=== PATIENT | female | born 1965 | race Caucasian/White ===

== ENCOUNTER 2017-03-12 21:02 | Emergency (ER) | payer OTHER, MEDICAID ==
[2017-03-12 21:20] VITALS: RESP 16
[2017-03-12] MEDS ORDERED: NS 1,000 ML IV ONE (22:23)
--- NOTE | 2017-03-12 22:34 | EDPHY ---
H & P Stated Complaint: constipation x 7days per pt. with nausea/cramps/pain. L knee wound as well. Time Seen by Provider: 03/12/17 22:14 HPI/ROS: CHIEF COMPLAINT: Constipation HISTORY OF PRESENT ILLNESS: This is a 52-year-old female with a past medical history of scleroderma, GERD, osteomyelitis, rheumatoid arthritis, emphysema, who presents reporting that she has not had a bowel movement for 1 week. She reports ongoing and increasing abdominal pain some nausea, cramping, and vomited yesterday. Reports red vomitus but does not think it is blood. Denies a fever, diarrhea, or urinary complaints. Has use prune juice as well as a suppository to treat her symptoms. Has not had a colonoscopy. No history of diverticulitis or diverticulosis that she knows of. Does have a family history of colon cancer. No fever, chills, chest pain, shortness of breath, palpitations, vomiting, diarrhea, urinary complaints, headache, lightheadedness. REVIEW OF SYSTEMS: Aside from elements discussed in the HPI, a comprehensive 10-point review of systems was reviewed and is negative. PAST MEDICAL HISTORY: Scleroderma, asthma, multiple finger amputations secondary to frostbite, history of rheumatoid arthritis. Chronically draining wound on her right knee SOCIAL HISTORY: Smoker. VITAL SIGNS Reviewed by me. GENERAL: Thin, poorly kept female. Multiple amputations of the digits. Complaining of abdominal pain. HEENT: Atraumatic. Eyes: No icterus, no injection. Mouth: Edentulous. Moist mucous membranes. No erythema or lesions. Neck: supple with no adenopathy. LUNGS: Clear to auscultation bilaterally, no wheezes, rhonchi or rales. CARDIAC: Regular rate and rhythm, no rubs, murmurs or gallops. ABDOMEN: Soft, multiple masses (questionable stool) palpable throughout the abdomen. No distension. No guarding or rebound. BACK: No CVA tenderness. EXTREMITIES: multiple finger tip amputations. Digits of the left hand are erythematous and swollen. Right knee has a open, chronically draining wound over the patella. No edema. NEURO: Alert and oriented, grossly nonfocal. SKIN: Warm and dry, no rash. PSYCHIATRIC: Normal mentation, no agitation. - Personal History LMP (Females 10-55): Irregular Current Tetanus Diphtheria and Acellular Pertussis (TDAP): Unsure Tetanus Vaccine Date: < 10 years - Medical/Surgical History Hx Asthma: Yes Hx Chronic Respiratory Disease: Yes Hx Diabetes: No Hx Cardiac Disease: No Hx Renal Disease: No Hx Cirrhosis: No Hx Alcoholism: Yes Hx HIV/AIDS: No Hx Splenectomy or Spleen Trauma: No Other PMH: ASTHMA,SCLERODERMA,GERD,CA THROAT,NELI,T&A, emphysema, rheumatoid arth. HX RT ELBOW OSTEOMYELITIS W/SURG, SURG RT THUMB. HEPATITIS C, frostbite, numerous finger amputations - Social History Smoking Status: Current every day smoker Constitutional: Initial Vital Signs Temperature (C) 37.0 C 03/12/17 21:18 Heart Rate 106 H 03/12/17 21:18 Respiratory Rate 16 03/12/17 21:18 Blood Pressure 142/127 H 03/12/17 21:18 O2 Sat (%) 99 03/12/17 21:18 O2 Delivery Mode Room Air Allergies/Adverse Reactions: No Known Allergies Allergy (Verified 03/12/17 21:16) Home Medications: Medication Instructions Recorded Albuterol 01/02/16 Prilosec 01/02/16 Ibuprofen 03/12/17 Naproxen Sodium [Aleve] 03/12/17 traZODone [traZODONE 100MG (*)] 03/12/17 Medical Decision Making - Diagnostics Imaging Results: Imaging Impressions Abdomen X-Ray 03/12/17 22:23 Impression: 1. Severe constipation. Xray: Two-view abdomen was obtained. I viewed the images myself on the PACS system. My interpretation of the images is: No air-fluid levels. Significant amount of constipation is present. The radiology interpretation is: Pending. I discussed the results with the patient. Imaging: I viewed and interpreted images myself ED Course/Re-evaluation: 52-year-old female presenting to the emergency department reporting constipation and generalized abdominal pain. IV was placed and patient received normal saline. Electrolytes are normal, specifically a normal potassium. X-ray demonstrates significant amount of stool throughout. At the patient's request, she received a fleets enema while in the emergency department. She was discharged with instructions regarding the use of GoLYTELY. I also recommend that she begin taking MiraLax daily. She will follow up with her primary care physician. Differential Diagnosis: After obtaining the patient's history and performing an examination, differential diagnosis considered included but was not limited to appendicitis, cholecystitis, constipation, bowel obstruction, kidney stones, urinary tract infections and other causes. - Data Points Laboratory Results: Laboratory Results 03/12/17 23:05 03/12/17 23:05 03/12/17 03/12/17 23:05 23:05 WBC 7.46 10^3/uL 10^3/uL (3.80-9.50) RBC 4.83 10^6/uL 10^6/uL (4.18-5.33) Hgb 11.4 g/dL L g/dL (12.6-16.3) Hct 35.5 % L % (38.0-47.0) MCV 73.5 fL L fL (81.5-99.8) MCH 23.6 pg L pg (27.9-34.1) MCHC 32.1 g/dL L g/dL (32.4-36.7) RDW 22.5 % H % (11.5-15.2) Plt Count 454 10^3/uL H 10^3/uL (150-400) MPV 8.4 fL L fL (8.7-11.7) Neut % (Auto) 67.8 % % (39.3-74.2) Lymph % (Auto) 22.5 % % (15.0-45.0) [place] % (Auto) 7.2 % % (4.5-13.0) Eos % (Auto) 1.6 % % (0.6-7.6) Baso % (Auto) 0.5 % % (0.3-1.7) Nucleat RBC Rel Count 0.0 % % (0.0-0.2) Absolute Neuts (auto) 5.05 10^3/uL 10^3/uL (1.70-6.50) Absolute Lymphs (auto) 1.68 10^3/uL 10^3/uL (1.00-3.00) Absolute Monos (auto) 0.54 10^3/uL 10^3/uL (0.30-0.80) Absolute Eos (auto) 0.12 10^3/uL 10^3/uL (0.03-0.40) Absolute Basos (auto) 0.04 10^3/uL 10^3/uL (0.02-0.10) Absolute Nucleated RBC 0.00 10^3/uL 10^3/uL (0-0.01) Immature Gran % 0.4 % % (0.0-1.1) Immature Gran # 0.03 10^3/uL 10^3/uL (0.00-0.10) Platelet Estimate INCREASED H (ADEQ) Hypochromasia 1+ H Microcytic Cells 2+ H Sodium 138 mEq/L mEq/L (134-144) Potassium 4.7 mEq/L mEq/L (3.5-5.2) Chloride 106 mEq/L mEq/L (97-110) Carbon Dioxide 20 mEq/l L mEq/l (22-31) Anion Gap 12 mEq/L mEq/L (8-16) BUN 17 mg/dL mg/dL (7-23) Creatinine 0.4 mg/dL L mg/dL (0.6-1.0) Estimated GFR > 60 Glucose 85 mg/dL mg/dL (70-100) Calcium 8.6 mg/dL mg/dL (8.5-10.4) Medications Given: Discontinued Medications Sodium Chloride (Ns) 1,000 mls @ 0 mls/hr IV ONCE ONE; Wide Open PRN Reason: Protocol Stop: 03/12/17 22:24 Last Admin: 03/12/17 23:05 Dose: 1,000 mls Departure - Departure Disposition: Home, Routine, Self-Care Clinical Impression: Abdominal pain, Constipation Condition: Good Instructions: Constipation (ED), High Fiber Diet (ED), Obstipation (ED), Fleet Enema (ED) Additional Instructions: I recommend that you to use a GoLYTELY prep for your constipation. GoLYTELY is also called PEG or polyethylene glycol. You may purchase the generic product. -This product must be mixed with liquid as directed before use. Read and follow all directions with the product package to mix this product. Usually the product is mixed with gatorade. After mixing, place the container in the refrigerator until ready to drink. Chilling the mixed liquid will improve its taste. Do not drink with ice. -Drink one 8-ounce glass of the mixture every 15 minutes until you have drank the entire solution (usually 64 ounces). Watery bowel movements usually begin within 1 hour after you start to drink the mixed liquid. -Drink plenty of clear liquids as directed by your doctor to prevent losing too much body water (become dehydrated). -If severe bloating or abdominal pain occurs, wait longer (15-30 minutes) between each glass of the mixture, or temporarily stop drinking the mixture until the symptoms improve. You may purchase a Fleet's enema at the grocery store in order to provide some relief this evening. In the future, in order to prevent significant constipation, I would recommend you start taking MiraLax every day. Please follow up with your primary care physician to schedule colonoscopy. Referrals: [facility],. [Primary Care Provider] - As per Instructions
[2017-03-12 22:48] VITALS: O2SAT 97
[2017-03-12 23:13] LABS: % IMMATURE GRANULYOCYTES 0.4 % (0.0-1.1); ABSOLUTE IMMATURE GRANULOCYTES 0.03 10^3/uL (0.00-0.10); ADD DIFF? NO; ADD MORPH? YES; ADD SCAN? NO; ATYPICAL LYMPHOCYTE FLAG 10 (0-99); FRAGMENT RBC FLAG 40 (0-99); HEMATOCRIT 35.5 % (38.0-47.0); HEMOGLOBIN 11.4 g/dL (12.6-16.3); LEFT SHIFT FLG 0 (0-99); LIPEMIA HEMOLYSIS FLAG 80 (0-99); MEAN CELL HEMOGLOBIN 23.6 pg (27.9-34.1); MEAN CELL HEMOGLOBIN CONCENTR. 32.1 g/dL (32.4-36.7); MEAN CELL VOLUME 73.5 fL (81.5-99.8); MEAN PLATELET VOLUME 8.4 fL (8.7-11.7); PLATELET CLUMPS FLAG 0 (0-99); PLATELET COUNT 454 10^3/uL (150-400); RED BLOOD CELL COUNT 4.83 10^6/uL (4.18-5.33)
[2017-03-12 23:18] LABS: RED CELL DISTRIBUTION WIDTH 22.5 % (11.5-15.2)
[2017-03-12 23:24] LABS: ANION GAP 12 mEq/L (8-16); CALCIUM 8.6 mg/dL (8.5-10.4); CARBON DIOXIDE 20 mEq/l (22-31); CHLORIDE 106 mEq/L (97-110); CREATININE 0.4 mg/dL (0.6-1.0); GLOMERULAR FILTRATION RATE > 60; GLUCOSE 85 mg/dL (70-100); POTASSIUM 4.7 mEq/L (3.5-5.2); SODIUM 138 mEq/L (134-144)
[2017-03-13 00:07] LABS: HYPOCHROMIA 1+; MICROCYTES 2+; PLATELET ESTIMATE INCREASED (ADEQ)
[2017-03-13 00:14] VITALS: BP 92/73; PULSE 78; TEMP 97.9
[2017-03-13] MEDS ORDERED: IBUPROFEN 600 MG TAB PO ONE (00:44)
== END 2017-03-13 01:00 | disposition home or self-care (01) ==
LOC: CED 21:02
DX: K59.00 Constipation, unspecified (principal); J45.909 Unspecified asthma, uncomplicated; F17.200 Nicotine dependence, unspecified, uncomplicated; Z85.818 Personal history of malignant neoplasm of other sites of lip, oral cavity, and pharynx
CPT/HCPCS: 74020-PO; 80048-PO; 85025-PO

== ENCOUNTER 2017-04-04 18:53 | Inpatient (IN) | payer OTHER, MEDICAID ==
--- NOTE | 2017-04-04 19:14 | EDPHY ---
HPI/HX/ROS/PE/MDM Narrative: CHIEF COMPLAINT: Finger infection HPI: The patient is a 52 y/o female complaining of possible finger infections on her left hand. She has a history of multiple finger amputations secondary to scleroderma and frostbite. She last saw her inspector soldering at [place] 3 weeks ago and says her symptoms have improved since then, but she continues to drain fluid from her left distal ring finger. She also notes a right knee lesion that has been present for several months. She denies fever, but endorses chills. She is not currently taking any antibiotics for her symptoms. REVIEW OF SYSTEMS: Aside from elements discussed in the HPI, a comprehensive 10-point review of systems was reviewed and is negative. PMH: Scleroderma, frostbite SOCIAL HISTORY: PCP: [facility]. [facility] at [place] PHYSICAL EXAM: General:Patient is alert, in no acute distress. ENT:Eyes are normal to inspection. ENT inspection normal. Neck: Normal inspection. Full range of motion. Respiratory:No respiratory distress. Breath sounds normal bilaterally. Cardiovascular: Regular rate and rhythm. Strong peripheral pulses. Normal cap refill. Abdomen:The abdomen is nontender to palpation. There are no peritoneal signs. Back: Normal to inspection. No tenderness to palpation. Skin: Normal color. No rash. Warm and dry. Extremities: Lesion to anterior right knee, partial amputations of left index and middle fingers, right partial amputation of ring finger, partially dry gangrenous changes to left middle finger. Neuro: Oriented x3. Normal motor function. Normal sensory function. ED Course: IV established and basic labs drawn. X-ray shows acute osteomyelitis of left distal ring finger. Due to this and her social situation, she will require admission. She would prefer to stay here rather than transfer to [place] where her specialist is. 1gm IV Ancef administered. 2008: Consulted with Dr. Hull, hand surgery. He will consult on the patient. 2018: Dr. Davidson, hospitalist, accepts admission. The patient has a chronic infection and normal vitals here in the ED without fever. I see no signs of severe sepsis or septic shock. - Data Points Imaging Results: Imaging Impressions Hand X-Ray 04/04/17 19:19 Impression: Findings compatible with osteomyelitis involving the 4th digit. Results called and discussed with Diego Tellez M.D., on April 04, 2017 at 2001. Imaging: Discussed imaging studies w/ physically impaired teacher Radiologist, I viewed and interpreted images myself Laboratory Results: Laboratory Results 04/04/17 19:30 04/04/17 19:30 04/04/17 04/04/17 19:30 19:30 WBC 5.00 10^3/uL 10^3/uL (3.80-9.50) RBC 4.09 10^6/uL L 10^6/uL (4.18-5.33) Hgb 10.2 g/dL L g/dL (12.6-16.3) Hct 32.4 % L % (38.0-47.0) MCV 79.2 fL L fL (81.5-99.8) MCH 24.9 pg L pg (27.9-34.1) MCHC 31.5 g/dL L g/dL (32.4-36.7) RDW 22.4 % H % (11.5-15.2) Plt Count 415 10^3/uL H 10^3/uL (150-400) MPV 8.3 fL L fL (8.7-11.7) Neut % (Auto) 58.6 % % (39.3-74.2) Lymph % (Auto) 30.0 % % (15.0-45.0) [place] % (Auto) 7.8 % % (4.5-13.0) Eos % (Auto) 2.2 % % (0.6-7.6) Baso % (Auto) 1.0 % % (0.3-1.7) Nucleat RBC Rel Count 0.0 % % (0.0-0.2) Absolute Neuts (auto) 2.93 10^3/uL 10^3/uL (1.70-6.50) Absolute Lymphs (auto) 1.50 10^3/uL 10^3/uL (1.00-3.00) Absolute Monos (auto) 0.39 10^3/uL 10^3/uL (0.30-0.80) Absolute Eos (auto) 0.11 10^3/uL 10^3/uL (0.03-0.40) Absolute Basos (auto) 0.05 10^3/uL 10^3/uL (0.02-0.10) Absolute Nucleated RBC 0.00 10^3/uL 10^3/uL (0-0.01) Immature Gran % 0.4 % % (0.0-1.1) Immature Gran # 0.02 10^3/uL 10^3/uL (0.00-0.10) Platelet Estimate ADEQUATE (ADEQ) Hypochromasia 2+ H Microcytic Cells 2+ H Sodium 140 mEq/L mEq/L (134-144) Potassium 3.7 mEq/L mEq/L (3.5-5.2) Chloride 111 mEq/L H mEq/L (97-110) Carbon Dioxide 16 mEq/l L mEq/l (22-31) Anion Gap 13 mEq/L mEq/L (8-16) BUN 13 mg/dL mg/dL (7-23) Creatinine 0.5 mg/dL L mg/dL (0.6-1.0) Estimated GFR > 60 Glucose 69 mg/dL L mg/dL (70-100) Calcium 9.3 mg/dL mg/dL (8.5-10.4) General Initial Vital Signs: Initial Vital Signs Temperature (C) 36.6 C 04/04/17 18:59 Heart Rate 86 04/04/17 18:59 Respiratory Rate 18 04/04/17 18:59 Blood Pressure 127/86 H 04/04/17 18:59 O2 Sat (%) 96 04/04/17 18:59 O2 Delivery Mode Room Air Allergies/Adverse Reactions: No Known Allergies Allergy (Verified 03/12/17 21:16) Home Medications: Medication Instructions Recorded Albuterol [Proventil Inhaler HFA 1 - 2 puffs IH Q4H PRN 01/02/16 (*)] Omeprazole 40 mg PO BID 01/02/16 Ibuprofen 100 mg PO Q6H PRN 03/12/17 Naproxen Sodium [Aleve] 220 mg PO Q6H PRN 03/12/17 traZODone [traZODONE 100MG (*)] 100 mg PO HS 03/12/17 Acetaminophen/ASA/Caffeine 1 each PO DAILY PRN 04/04/17 [Excedrin Tablet (*)] Citalopram Hydrobromide [Celexa] 40 mg PO DAILY 04/04/17 amLODIPine BESYLATE [Norvasc 5 mg 5 mg PO DAILY 04/04/17 (*)] Departure - Departure Disposition: [facility] Inpatient Acute Clinical Impression: Osteomyelitis of finger of left hand Condition: Fair Report Scribed for: Diego Tellez Report Scribed by: Kathleen Stevens Date of Report: 04/04/17 Time of Report: 19:14 Physician Review and Approval Statement: Portions of this note were transcribed by an ED scribe. I personally performed the history, physical exam, and medical decision making; and confirm the accuracy of the information in the transcribed note.
[2017-04-04 19:42] LABS: % IMMATURE GRANULYOCYTES 0.4 % (0.0-1.1); ABSOLUTE IMMATURE GRANULOCYTES 0.02 10^3/uL (0.00-0.10); ADD DIFF? NO; ADD MORPH? YES; ADD SCAN? NO; ATYPICAL LYMPHOCYTE FLAG 40 (0-99); FRAGMENT RBC FLAG 40 (0-99); HEMATOCRIT 32.4 % (38.0-47.0); HEMOGLOBIN 10.2 g/dL (12.6-16.3); LEFT SHIFT FLG 0 (0-99); LIPEMIA HEMOLYSIS FLAG 80 (0-99); MEAN CELL HEMOGLOBIN 24.9 pg (27.9-34.1); MEAN CELL HEMOGLOBIN CONCENTR. 31.5 g/dL (32.4-36.7); MEAN CELL VOLUME 79.2 fL (81.5-99.8); MEAN PLATELET VOLUME 8.3 fL (8.7-11.7); PLATELET CLUMPS FLAG 10 (0-99); PLATELET COUNT 415 10^3/uL (150-400); RED BLOOD CELL COUNT 4.09 10^6/uL (4.18-5.33)
[2017-04-04 19:44] LABS: RED CELL DISTRIBUTION WIDTH 22.4 % (11.5-15.2)
[2017-04-04 19:57] LABS: ANION GAP 13 mEq/L (8-16); CALCIUM 9.3 mg/dL (8.5-10.4); CARBON DIOXIDE 16 mEq/l (22-31); CHLORIDE 111 mEq/L (97-110); CREATININE 0.5 mg/dL (0.6-1.0); GLOMERULAR FILTRATION RATE > 60; GLUCOSE 69 mg/dL (70-100); POTASSIUM 3.7 mEq/L (3.5-5.2); SODIUM 140 mEq/L (134-144)
[2017-04-04 20:16] LABS: HYPOCHROMIA 2+; MICROCYTES 2+; PLATELET ESTIMATE ADEQUATE (ADEQ)
[2017-04-04] MEDS ORDERED: PROMETHAZINE HCL 25 MG/ML INJ IVP PRN (21:13)
[2017-04-04] MEDS ORDERED: ACETAMINOPHEN 325 MG TAB PO PRN (21:13)
[2017-04-04] MEDS ORDERED: ZOLPIDEM TARTRATE 5 MG TAB PO PRN (21:13)
[2017-04-04] MEDS ORDERED: ONDANSETRON 4 MG/2 ML VIAL IVP PRN (21:13)
[2017-04-04] MEDS ORDERED: NS 1,000 ML IV SCH (21:15)
[2017-04-04] MEDS ORDERED: ALBUTEROL 3 ML DEYVIAL IH PRN (21:17)
[2017-04-04] MEDS: oxyCODONE IR 5 MG TAB PO PRN (22:01)
--- NOTE | 2017-04-04 22:05 | GHP ---
[f rep st] HISTORY AND PHYSICAL DATE OF ADMISSION: 04/04/2017 CHIEF COMPLAINT: Finger pain. HISTORY: This is a 52-year-old female, who has a past medical history of scleroderma and frostbite, as well as esophageal cancer, who has had multiple complications from her scleroderma and frostbite including 3 finger amputations. She has chronic pain and chronic nonhealing wounds involving her r ight knee, as well as her left 3rd and 4th fingers. Her 3rd finger has already been amputated but h as a chronic draining ulceration at the tip, and her left 4th finger has an area of chronic ulcerati on that has been draining and purulent for at least several months. Associated with significant pain . She has been evaluated for amputation of that finger but this was deferred per her cut off saw operator metal 's preference. She notes that she has been taking high doses of Aleve and other [id number] pa in medications to manage her pain. She has had no fever but does have chills. She has been homeles s in the past but currently has obtained housing through [employer]. Given difficulties with [employer], she no longer sees physicians in the area but does see mostly physicians at the [facility]. PAST MEDICAL HISTORY: Includes: 1. Scleroderma. 2. Frostbite in the 90s with residual chronic pain that necessitated some amputations. 3. Chronic COPD. 4. GERD. 5. Esophageal cancer, status post radiation. 6. Protein-calorie malnutrition. 7. Suspected chronic aspiration. PAST SURGICAL HISTORY: Includes cholecystectomy and serial applications. FAMILY HISTORY: Includes colon cancer. SOCIAL HISTORY: The patient is currently housed through [employer]. She has a long history of homelessness and prior incarcerations, as well as difficult social issues with her son, leading her to stay in a [facility] in the past. She does have a history of tobacco, alcohol and marijuan a use, though states her alcohol use is in remission. REVIEW OF SYSTEMS: 10-point review of systems obtained and negative, except as per HPI. MEDICATIONS: Include trazodone, Wellbutrin, Prilosec, Aleve, ibuprofen, Celexa and albuterol. ALLERGIES: No known drug allergies. PHYSICAL EXAMINATION: VITAL SIGNS: BP 104/90, heart rate 69, respiratory rate 16, O2 sats 98% on r oom air. Temperature is 36.7. GENERAL: The patient is a chronically ill-appearing, thin in mild distress. HEENT: Eyes: Anicter ic. HENT: Oropharynx clear. Poor dentition. CARDIOVASCULAR: Regular rate and rhythm. No MRG. PULMONARY: CTA bilaterally with decreased breath sounds throughout. ABDOMEN: Soft, nontender, non distended. EXTREMITIES: Decreased bulk throughout. No clubbing, cyanosis or edema. SKIN: Distal 3rd finger with crusting and chronic scabbing on the 4th digit with significant ulceration, moth-eaten appearan ce and right knee with a chronic ulceration. NEURO/PSYCH: Oriented and appropriate. Patient is anx ious. CLINICAL DATA: Labs reviewed. Significant for white blood cell count of 5, hematocrit 32.4, platel ets of 415. Chemistry is essentially unremarkable. Creatinine is 0.5. Glucose is 69. Hand x-ray, personally reviewed and interpreted, shows erosive change and swelling of the 4th digit consistent with osteomyelitis. There is a mottled appearance of the distal and proximal phalanx of the 4th digit. ASSESSMENT AND PLAN: This is a 52-year-old female with past medical history of scleroderma, as well as frostbite, presenting with osteomyelitis of the 4th digit. 1. Osteomyelitis. The patient is hemodynamically stable without evidence of sepsis at this point. She has been given a dose of Ancef in the emergency department. Dr. Hull has been consulted fo r hand surgery. She needs likely amputation but, at minimum, biopsy of the bone to determine organi sms involved. Blood cultures have been ordered and are pending. For now, [facility] given that she is hemodynamically stable and that we would like to obtain culture niki a for guidance of ongoing treatment. Infectious Disease has also been consulted and will see the vanda taylor in the morning. 2. Scleroderma. This is been a chronic issue for this patient. She is followed by Rheumatology at the [facility] and is not on any specific medication for this. 3. History of frostbite, complicating above. She does have chronic scleroderma changes, as well as what sounds like neuropathic issues related to prior frostbite. Multiples finger amputations. Aga in, Hand Surgery has been involved. 4. Protein-calorie malnutrition. Patient with a BMI of 16. She does appear cachectic. Will be st arted on supplementation with meals and I have asked for a dietary consult. 5. Chronic obstructive pulmonary disease without evidence of acute exacerbation. We will continue p.r.n. albuterol. 6. Chronic aspiration. Patient at high risk with esophageal changes consistent with scleroderma no josemanuel on CT imaging. Will follow aspiration precautions. 7. Disposition: Inpatient status. Suspect patient will need greater than 48 hours stay for evalua tion and management of above. 8. Patient is new to my care. Old records reviewed, summarized as per history of present illness a nd past medical history. Care plan reviewed with emergency room physician, including plans for orth opedic consultation. /[id number]/MODL
[2017-04-04] MEDS: LORazepam 0.5 MG TAB PO PRN (22:54)
[2017-04-04] MEDS: HYDROmorphONE/DILAUDID 1 MG/ML SYR IVP PRN (23:18)
[2017-04-05 05:47] LABS: % IMMATURE GRANULYOCYTES 0.4 % (0.0-1.1); ABSOLUTE IMMATURE GRANULOCYTES 0.02 10^3/uL (0.00-0.10); ADD DIFF? NO; ADD MORPH? YES; ADD SCAN? NO; ATYPICAL LYMPHOCYTE FLAG 0 (0-99); FRAGMENT RBC FLAG 20 (0-99); HEMATOCRIT 33.3 % (38.0-47.0); HEMOGLOBIN 10.6 g/dL (12.6-16.3); LEFT SHIFT FLG 0 (0-99); LIPEMIA HEMOLYSIS FLAG 80 (0-99); MEAN CELL HEMOGLOBIN 24.7 pg (27.9-34.1); MEAN CELL HEMOGLOBIN CONCENTR. 31.8 g/dL (32.4-36.7); MEAN CELL VOLUME 77.6 fL (81.5-99.8); MEAN PLATELET VOLUME 8.1 fL (8.7-11.7); PLATELET CLUMPS FLAG 0 (0-99); PLATELET COUNT 427 10^3/uL (150-400); RED BLOOD CELL COUNT 4.29 10^6/uL (4.18-5.33)
[2017-04-05 06:05] LABS: ANION GAP 9 mEq/L (8-16); CARBON DIOXIDE 20 mEq/l (22-31); CHLORIDE 112 mEq/L (97-110); CREATININE 0.5 mg/dL (0.6-1.0); GLOMERULAR FILTRATION RATE > 60; GLUCOSE 68 mg/dL (70-100); SODIUM 141 mEq/L (134-144)
[2017-04-05 06:13] LABS: RED CELL DISTRIBUTION WIDTH 22.2 % (11.5-15.2)
[2017-04-05 06:39] LABS: HYPOCHROMIA 1+; MICROCYTES 1+; PLATELET ESTIMATE ADEQUATE (ADEQ)
[2017-04-05] MEDS: oxyCODONE IR 5 MG TAB PO PRN ×4 (06:51→20:28)
[2017-04-05] MEDS ORDERED: ALBUTEROL 60 PUFFS/8 GM MDI IH PRN (08:42)
[2017-04-05] MEDS ORDERED: ACETAMINOPHEN/ASA/CAFFEINE 1 EACH TAB PO PRN (08:42)
[2017-04-05] MEDS ORDERED: NON-FORMULARY NEW DRUG (Omeprazole [Omeprazole] 40 MG) PO SCH (09:00)
[2017-04-05] MEDS ORDERED: NON-FORMULARY NEW DRUG (Citalopram Hydrobromide [Celexa] 40 MG) PO SCH (09:00)
[2017-04-05] MEDS: PANTOPRAZOLE SODIUM 40 MG TAB PO SCH ×2 (09:56→20:28)
[2017-04-05] MEDS: amLODIPine BESYLATE 5 MG TAB PO SCH (09:56)
[2017-04-05] MEDS: CITALOPRAM 20 MG TAB PO SCH (09:57)
--- NOTE | 2017-04-05 14:28 | HOSPPROG ---
Hospitalist Progress Note Assessment/Plan: 52y female with hx of scleroderma, c/o pain and infection. This is my first encounter. Chart reviewed. D/W Dr Hull #Osteomyelitis of 4th digit needs surgical intervention await ID recs plan for OR in am if pt agreeable #Hx of scleroderma chronic no medications #Depression consult Shahla Argueta pt with SI #Hx of frostbite complicating situation #protein calorie malnutrition dietary consult #Hx chronic aspiration related to scleroderma changes #Dispo unclear, will need further evaluation ID consult surgical intervention Subjective: "I feel depressed" Concnerned about finger. no pain currently Objective: Vital Signs Temp Pulse Resp BP Pulse Ox 36.8 C 75 18 119/88 H 96 04/05/17 11:49 04/05/17 11:49 04/05/17 11:49 04/05/17 11:49 04/05/17 11:49 Laboratory Results 04/05/17 04:41 04/05/17 04:41 04/04/17 04/05/17 04/06/17 05:59 05:59 05:59 Intake Total 300 Balance 300 - Physical Exam Constitutional: not in pain, chronically ill appearing, cachectic Eyes: PERRL, anicteric sclera, EOMI Ears, Nose, Mouth, Throat: moist mucous membranes, hearing normal, ears appear normal Cardiovascular: regular rate and rhythym, No JVD, No edema Respiratory: no respiratory distress, no rales or rhonchi, reduced air movement Gastrointestinal: normoactive bowel sounds, No tenderness, No ascites Skin: warm, normal color, No erythema Musculoskeletal: joint tenderness, muscular tenderness, generalized weakness Neurologic: AAOx3 Psychiatric: not encephalopathic, depressed, suicidal ideation ICD10 Worksheet Patient Problems: Problems Problem Status Onset Pneumonia Acute Scleroderma Acute Sepsis Acute Sinus tachycardia Acute Suicidal ideations Acute Constipation Acute Osteomyelitis of finger of left hand Acute
--- NOTE | 2017-04-05 20:38 | GCON ---
[f rep st] CONSULTATION INPATIENT INFECTIOUS DISEASE CONSULTATION REFERRING PHYSICIAN: Rosemarie Davidson MD REASON FOR CONSULTATION: Left 4th digit osteomyelitis. HISTORY OF PRESENT ILLNESS: The patient is a 52-year-old female with significant advanced scleroder ma. The patient presented to [facility] Emergency Room in the evening of 04/04/2017 c omplaining of finger pain. She has a past medical history of scleroderma, but also has frostbite, a nd additionally esophageal cancer. She has a history of homelessness and had multiple episodes of f rostbite, including 3 finger amputations. The patient noted that her 3rd finger on the left hand is also amputated, but her tip of that remaining finger has a draining ulceration. The left 4th digit has a circumferential chronic ulceration, which has been draining for a number of months. The gina ent is seeing a dashboard developer down at the [facility]. She does not know his name. She has been ta geri high doses of Aleve and other [id number] pain medications to manage. She states that she had been looked at for amputation of the left 4th digit, but that her dashboard developer preferred not to at that point. We are consulted to evaluate possible underlying osteomyelitis as per plain film. PAST MEDICAL HISTORY: 1. Scleroderma. 2. History of gastroesophageal reflux disease. 3. Chronic obstructive pulmonary disease. 4. Multiple episodes of frostbite. 5. History of esophageal cancer. PAST SURGICAL HISTORY: 1. Status post cholecystectomy. 2. Status post multiple digit amputations. MEDICATIONS: Cefazolin x1. ALLERGIES: No known drug allergies. SOCIAL HISTORY: The patient currently has stable housing. She does have a history of tobacco and a lcohol use. She claims she is not using currently. FAMILY HISTORY: Reviewed, but noncontributory. REVIEW OF SYSTEMS: Other than that detailed above in the history of present illness, a comprehensiv e 10-system review is negative. PHYSICAL EXAMINATION: VITAL SIGNS: Temperature maximum is 36.9, temperature current is 36.9, heart rate is 88, respiratory rate is 18, blood pressure is 116/84. GENERAL: The patient is a well-form ed, well-nourished, middle-aged female in no acute distress. She is not toxic in appearance. She i s alert and oriented x3. She is in a pleasant demeanor. HEENT: Normocephalic for age. Atraumatic . No scleral icterus. No oral lesion. No drainage from the nares. Eyes: Lids and conjunctivae a re within normal limits. Pupils are equal and round bilaterally. NECK: Supple. No meningismus. LUNGS: Clear to auscultation. Good effort. HEART: Regular rate and rhythm. No murmur heard. No significant peripheral edema. SKIN: The patient has multiple amputations in the upper extremities . She has an amputated stump of the left 3rd finger with chronic eschar. No drainage noted on exam . She also has a chronic circumferential eschar on the 4th digit distal to the PIP joint. No drain age noted at present. MUSCULOSKELETAL: No muscle belly tenderness is noted. No joint line effusio n or arthritis is seen. NEURO: Cranial nerves 2-12 seem to be intact. Peripheral sensation seems intact in extremities. LABORATORY DATA: The patient has a CBC dated 04/05/2017 that shows a white blood cell count of 5.3, hemoglobin 7.6, hematocrit of 33.3, and a platelet count of 427. Differential is within normal murillo its. Serum chemistries on 04/05/2017 show a sodium of 141, potassium 4.0, chloride of 112, bicarbon ate of 20, BUN of 15, creatinine 0.5. Microbiologic data: The patient has 1 of 2 blood cultures da josemanuel 04/04/2017 which is growing a streptococcal species. ASSESSMENT: Bacteremia with probable Streptococcus. PCR is pretty accurate at identifying genus. Would expect this is not pyogenes nor group B strep or Streptococcus pneumoniae. The plain film of the left hand does reveal moth eaten status at the bones and probably a pathologic fracture through the left distal phalanx. This does not appear to be a salvageable digit. We will defer to Orthopedics, but I suspect amputative therapy would likely be necessary. PLAN: 1. At this point, will continue the cefazolin 1 g IV q.8, and have followup blood cultures performe d in the next 1-2 days. Will discuss with Orthopedic Surgery and Hand Surgery once they evaluate th e patient. Restart cefazolin 1 g IV q.8 hours. 2. Follow blood cultures. 3. Repeat blood cultures in 1-2 days. /[id number]/MODL
--- NOTE | 2017-04-05 20:43 | GCON ---
[f rep st] CONSULTATION ORTHOPEDIC CONSULTATION. DATE OF CONSULTATION: 04/05/2017 REASON FOR CONSULTATION: Scleroderma with infection, 3rd and 4th digits, left hand. 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 She is status post 3 finger amputations for infection. She has chronic pain with nonhealing wounds on the 3rd and 4th fingers. She has gotten care at multiple sites, including the [facility] and [facility]. PRIOR MEDICAL HISTORY: Scleroderma, COPD, GERD, and esophageal cancer. PRIOR SURGICAL HISTORY: Cholecystectomy, multiple finger amputations. SOCIAL HISTORY: She does have a long history of homelessness. It sounds, at this point, she does h ave a stable living situation through [employer]. She has abused alcohol in the past. MEDICATIONS: Trazodone, Wellbutrin, Prilosec, ibuprofen, Celexa, albuterol, and Aleve. ALLERGIES: No known drug allergies. PHYSICAL EXAMINATION: GENERAL: She is alert and oriented x3. She answers questions appropriately. She does have a flat affect. VITAL SIGNS: On the floor today, blood pressure is 116/84, heart rate 88, oxygen saturation 96% on room air, temperature is 36.9. EXTREMITIES: Right hand: There has b een a finger tip amputation at the DIP joint of the 4th finger. No other ulcers on the right hand. L eft hand shows ulceration at the site of the previous amputation on the 3rd finger, the index finger . Amputation has healed well. She has a draining wound just distal to the PIP joint. There is puru lence from beneath this. No other ulcerations on her hands or remaining fingers. LABORATORY: Recent labs show a white count of 5.2. Glucose is 68. X-rays consistent with osteomyelitis of the middle and distal phalanxes of the 4th finger. ASSESSMENT: 1. Nonhealing wound with osteomyelitis, 4th finger. 2. Ulceration, wound, previous amputation, 3rd finger. PLAN: The patient and I spent 30 minutes reviewing treatment options. I think the best treatment o ption would be an amputation and debridement revision amputation of the 3rd finger. Also talked abo ut nonoperative treatment, including antibiotic treatment. Given the appearance of the x-ray and th e suspected osteomyelitis, I do not think that would work very well. She is in agreement with this plan. She is having quite a bit of pain at this point, so we have agreed to proceed with a 4th fing er amputation at the DIP joint and a revision amputation of the 3rd finger. We will send intraopera tive cultures to see if we can tailor the antibiotic regiment more fully. Surgical will be planned for 9:30 on Sunday morning. /[id number]/MODL
[2017-04-05] MEDS: traZODone 100 MG TAB PO SCH (21:59)
[2017-04-05] MEDS: ONDANSETRON DISINTEGRATING 4 MG TAB PO PRN (22:20)
[2017-04-06] MEDS ORDERED: BUPIVACAINE 0.5% 30 ML SDV ONE (07:28)
[2017-04-06] MEDS ORDERED: MIDAZOLAM 2 MG/2 ML VIAL IVP ONE (09:40)
[2017-04-06] MEDS ORDERED: MIDAZOLAM 2 MG/2 ML VIAL ONE (09:41)
--- NOTE | 2017-04-06 09:42 | PDANEPAE ---
ANE Past Medical History - Pulmonary History Hx COPD: Yes Hx Oxygen in Use at Home: No Hx Sleep Apnea: No Sleep Apnea Screening Result - Last Documented: Negative - Endocrine History Hx Diabetes: No ANE Patient History - Allergies Allergies/Adverse Reactions: No Known Allergies Allergy (Verified 03/12/17 21:16) - Home Medications Home Medications: Albuterol [Proventil Inhaler HFA (*)] 1 - 2 puffs IH Q4H PRN 01/02/16 [Last Taken Unknown] Omeprazole 40 mg PO BID 01/02/16 [Last Taken Unknown] Ibuprofen 100 mg PO Q6H PRN 03/12/17 [Last Taken Unknown] Naproxen Sodium [Aleve] 220 mg PO Q6H PRN 03/12/17 [Last Taken Unknown] traZODone [traZODONE 100MG (*)] 100 mg PO HS 03/12/17 [Last Taken 04/03/17] Acetaminophen/ASA/Caffeine [Excedrin Tablet (*)] 1 each PO DAILY PRN 04/04/17 [ Last Taken Unknown] Citalopram Hydrobromide [Celexa] 40 mg PO DAILY 04/04/17 [Last Taken Unknown] amLODIPine BESYLATE [Norvasc 5 mg (*)] 5 mg PO DAILY 04/04/17 [Last Taken ] - NPO status NPO Since - Liquids (Date): 04/06/17 NPO Since - Liquids (Time): 00:00 NPO Since - Solids (Date): 04/06/17 NPO Since - Solids (Time): 00:00 - Smoking Hx Smoking Status: Current every day smoker ANE Labs/Vital Signs - Labs Result Diagrams: 04/05/17 04:41 04/05/17 04:41 - Vital Signs Blood Pressure: 96/66 Heart Rate: 71 Respiratory Rate: 16 O2 Sat (%): 94 Height: 160.02 cm Weight: 36.6 kg ANE Physical Exam - Airway Neck exam: FROM Mallampati Score: Class 1 Mouth exam: poor dentition - Pulmonary Pulmonary: no respiratory distress - Cardiovascular Cardiovascular: regular rate and rhythym, no murmur, rub, or gallop - ASA Status ASA Status: III ANE Anesthesia Plan Anesthesia Plan: general endotracheal anesthesia, GA w LMA
[2017-04-06] MEDS ORDERED: fentaNYL 100 MCG/2 ML INJ ONE (09:51)
[2017-04-06] MEDS ORDERED: PROPOFOL 200 MG/20 ML VIAL ONE (09:52)
[2017-04-06] MEDS ORDERED: LIDOCAINE 2% 5 ML SDV ONE (09:52)
[2017-04-06] MEDS ORDERED: ROCURONIUM 50 MG/5 ML VIAL ONE (09:52)
[2017-04-06] MEDS ORDERED: ONDANSETRON 4 MG/2 ML VIAL ONE (09:52)
[2017-04-06] MEDS ORDERED: PHENYLEPHRINE HCL 100 MCG/ML SYR ONE (10:02)
[2017-04-06] MEDS ORDERED: HYDROmorphONE/DILAUDID 1 MG/ML SYR IVP PRN (10:26)
[2017-04-06] MEDS ORDERED: fentaNYL 100 MCG/2 ML INJ IVP PRN (10:26)
[2017-04-06] MEDS ORDERED: HYDROCODONE/APAP 5/325 TAB PO PRN (10:26)
[2017-04-06] MEDS ORDERED: PROMETHAZINE HCL 25 MG/ML INJ IVP PRN (10:26)
[2017-04-06] MEDS ORDERED: NALOXONE HCL 0.4 MG/ML INJ IVP PRN (10:26)
[2017-04-06] MEDS ORDERED: LR 500 ML IV PRN (10:26)
[2017-04-06] MEDS ORDERED: ONDANSETRON 4 MG/2 ML VIAL IVP PRN (10:26)
[2017-04-06] MEDS ORDERED: DEXAMETHASONE 4 MG/ML VIAL IVP PRN (10:26)
[2017-04-06] MEDS ORDERED: SUGAMMADEX SODIUM 200 MG/2 ML VIAL IVP ONE (10:32)
--- NOTE | 2017-04-06 10:52 | POSTOPPROG ---
Post Op Note Date of Operation: 04/06/17 Surgeon: Don Hull Anesthesiologist: Juliana Anesthesia: GET(General Endotracheal) Pre-op Diagnosis: osteomyelitis 4th and 3rd fingers left hand Post-op Diagnosis: same Procedure: $th finger amputation, revision 3rd finger amputation left hand Inf/Abcess present in the surg proc area at time of surgery?: Yes Depth: Deep Incisional (Fascial) EBL: Minimal Complications: none
--- NOTE | 2017-04-06 11:51 | POSTANESTH ---
Post Anesthetic Evaluation Cardiovascular Status: Normal, Stable, Similar to Pre-Op Cond Respiratory Status: Normal, Stable, Similar to Pre-op Cond. Level of Consciousness/Mental Status: Can Participate in Eval, Moderately Sleepy Pain Control: Adequate, Prn Tx Ordered Nausea/Vomiting Control: Adequate, Prn Tx Ordered Complications Possibly Related to Anesthesia: None Noted
[2017-04-06] MEDS: PANTOPRAZOLE SODIUM 40 MG TAB PO SCH ×2 (12:46→21:58)
[2017-04-06] MEDS: CITALOPRAM 20 MG TAB PO SCH (12:46)
[2017-04-06] MEDS: amLODIPine BESYLATE 5 MG TAB PO SCH (12:47)
[2017-04-06] MEDS: oxyCODONE IR 5 MG TAB PO PRN ×3 (12:49→21:58)
--- NOTE | 2017-04-06 13:40 | HOSPPROG ---
Hospitalist Progress Note Assessment/Plan: 52y female with hx of scleroderma, c/o pain and infection. #Osteomyelitis of 4th digit to OR today, amputation and revision of 3rd digit cont abx per ID #Hx of scleroderma chronic no medications #Depression appreciate Shahla Argueta pt with SI D/W CM #Hx of frostbite complicating situation #protein calorie malnutrition dietary consult ? underlying eating disorder #Hx chronic aspiration related to scleroderma changes #Dispo unclear, will need further evaluation may need SNF given new amputation Subjective: Tired after surgery. No complaints. Objective: Vital Signs Temp Pulse Resp BP Pulse Ox 36.6 C 93 16 105/74 97 04/06/17 13:21 04/06/17 13:21 04/06/17 13:21 04/06/17 13:21 04/06/17 13:21 Microbiology 04/06/17 10:10 Gram Stain - Final Finger - Bone 04/06/17 10:10 Gram Stain - Final Finger - Tissue 04/06/17 10:10 Gram Stain - Final Finger - Bone 04/06/17 10:10 Gram Stain - Final Finger - Eswab 04/06/17 10:10 Mycobacterial Smear (SELINA) - Final Finger - Eswab Mycobacterial Culture - Final 04/04/17 20:30 Blood Panel (PCR) - Final Blood Streptococcus Laboratory Results 04/05/17 04:41 04/05/17 04:41 04/05/17 04/06/17 04/07/17 05:59 05:59 05:59 Intake Total 300 700 Output Total 5 Balance 300 695 - Physical Exam Constitutional: chronically ill appearing, cachectic Eyes: PERRL, anicteric sclera Ears, Nose, Mouth, Throat: moist mucous membranes, hearing normal Cardiovascular: regular rate and rhythym, No JVD Respiratory: no respiratory distress, reduced air movement Gastrointestinal: No tenderness, No ascites Skin: warm, No mottled Musculoskeletal: pain with ROM, muscular tenderness, generalized weakness Psychiatric: not anxious, suicidal ideation, poor insight, poor judgement, poor memory ICD10 Worksheet Patient Problems: Problems Problem Status Onset Pneumonia Acute Scleroderma Acute Sepsis Acute Sinus tachycardia Acute Suicidal ideations Acute Constipation Acute Osteomyelitis of finger of left hand Acute
[2017-04-06] MEDS: HYDROmorphONE/DILAUDID 1 MG/ML SYR IVP PRN ×2 (15:36→19:54)
[2017-04-06] MEDS: LORazepam 0.5 MG TAB PO PRN (15:39)
--- NOTE | 2017-04-06 19:04 | PCMIDPN ---
Assessment/Plan: Assessment/Plan: * Osteomyelitis left 4th digit status post amputation: Hope amputation was curative. Covered by antibiotic therapy as outlined below. * Streptococcal bacteremia: Oropharyngeal streptococci x2 species likely originating from finger ulceration. Will change cefazolin to ceftriaxone. Anticipate 10 day course of therapy provided all osteomyelitis excised. * Chronic right knee ulceration: Will obtain plain film of knee. 04/06/17 19:00 Subjective: Patient complains of left hand pain postoperatively. Status post amputation of 4th digit and revision of 3rd finger amputation on left. Objective: Vital Signs Temp Pulse Resp BP Pulse Ox 36.8 C 85 18 106/81 H 98 04/06/17 15:07 04/06/17 15:07 04/06/17 15:07 04/06/17 15:07 04/06/17 15:07 Microbiology 04/06/17 10:10 Mycobacterial Smear (SELINA) - Final Finger - Bone 04/06/17 10:10 Mycobacterial Smear (SELINA) - Final Finger - Bone 04/06/17 10:10 Mycobacterial Smear (SELINA) - Final Finger - Tissue 04/04/17 20:30 Blood Panel (PCR) - Final Blood Streptococcus 04/06/17 10:10 Gram Stain - Final Finger - Bone 04/06/17 10:10 Gram Stain - Final Finger - Tissue 04/06/17 10:10 Gram Stain - Final Finger - Bone 04/06/17 10:10 Gram Stain - Final Finger - Eswab 04/06/17 10:10 Mycobacterial Smear (SELINA) - Final Finger - Eswab Mycobacterial Culture - Final Laboratory Results 04/05/17 04:41 04/05/17 04:41 04/05/17 04/06/17 04/07/17 05:59 05:59 05:59 Intake Total 300 1180 Output Total 5 Balance 300 1175 Cefazolin #1 Blood cultures 1/2 sets with growth of Streptococcus parasanguinous and Streptococcus salivarius - Physical Exam General Appearance: alert, no apparent distress EENT: No thrush, No conjunctival petechiae Cardiac/Chest: regular rate, rhythm, No systolic murmur Extremities: inflammation (left hand dressed postoperatively; right knee with chronic ulceration with hyperemia; no expressible discharge; no effusion) ICD10 Worksheet Patient Problems: Problems Problem Status Onset Osteomyelitis of finger of left hand Acute Constipation Acute Pneumonia Acute Scleroderma Acute Sepsis Acute Sinus tachycardia Acute Suicidal ideations Acute
--- NOTE | 2017-04-06 20:24 | GOP ---
[f rep st] OPERATIVE REPORT DATE OF OPERATION: 04/06/2017 SURGEON: Don Hull MD ANESTHESIA: General. ANESTHESIOLOGIST: Dr. Andrews. PREOPERATIVE DIAGNOSIS: Osteomyelitis involving the 3rd and 4th fingers of the left hand. POSTOPERATIVE DIAGNOSIS: Osteomyelitis involving the 3rd and 4th fingers of the left hand. PROCEDURE PERFORMED: 4th finger amputation revision, 3rd finger amputation, left hand. FINDINGS: ESTIMATED BLOOD LOSS: Minimal. INDICATIONS: The patient is a 52-year-old female with scleroderma and infection involving 3rd and 4 th fingers. On x-ray appears to be osteomyelitis. She has had multiple fingers amputated in the p ast. DESCRIPTION OF PROCEDURE: After appropriate informed consent was obtained, patient taken to the ope rating room and placed supine on the operating table. Time-out was performed. Patient was identifi ed. Correct site was identified. She did not receive any additional antibiotics. She had been rec eiving antibiotics on the floor. Following the induction of general endotracheal tube anesthesia, l eft upper extremity was prepped and draped in the usual sterile fashion. I started with the 4th fin iris at the PIP joint and made a skin incision leaving a volar flap to bring up for later closure. T he finger was easily removed. Bleeding was controlled with electrocautery. There was clearly purul ence within the middle and distal phalanxes. Tissue was also sent as well as bone from the middle a nd the proximal phalanx. I made an angular beveled cut on the distal end of the proximal phalanx so there would not be any undue pressure on the skin. I irrigated the wound with normal saline and th en loosely closed the skin with 4-0 nylon. I then turned my attention to the 3rd finger. Previous incision had a large area of eschar over that. That was removed and it was exposed down to the bone . The infection tracked into that bone. Using the oscillating saw and rongeur, I removed bone back to viable appearing bone. Irrigated the wound. Revised the skin edges with a sharp scalpel and lion rehman closed that with 4-0 nylon as well. I applied 10 mL of 0.5% Marcaine plain in a digital block fashion involving the 3rd and 4th fingers and then placed a sterile bulky dressing over the end of the fingers. The patient was awakened from anesthesia, taken to recovery room in satisfactory condi tion. There were no immediate intraoperative complications. TOTAL TOURNIQUET TIME: 32 minutes at 250 mmHg. COMPLICATIONS: None. DRAINS: None. /[id number]/MODL
[2017-04-06] MEDS: traZODone 100 MG TAB PO SCH (21:58)
--- NOTE | 2017-04-07 00:02 | CPEKG ---
Heart Rate: 79 RR Interval: 759 P-R Interval: 148 QRSD Interval: 92 QT Interval: 384 QTC Interval: 441 P Hines: 71 QRS Hines: 68 T Wave Hines: 30 EKG Severity - ABNORMAL ECG - EKG Impression: SINUS RHYTHM EKG Impression: NONSPECIFIC REPOL ABNORMALITY, DIFFUSE LEADS -- NEW SINCE JUNE 26, 2015 Electronically Signed By: Taras Lugo 07-Apr-2017 08:35:09
[2017-04-07] MEDS: NS 1,000 ML IV SCH ×2 (00:21→22:25)
[2017-04-07] MEDS: HYDROmorphONE/DILAUDID 1 MG/ML SYR IVP PRN ×3 (00:30→19:01)
--- NOTE | 2017-04-07 00:57 | HOSPPROG ---
Hospitalist Progress Note Assessment/Plan: Asked to see patient for 04/02 chest pain. She has had it every night for the last 2 weeks but hasn't previously told physicians. Only has it at night. Non-pleuritic. EKG: NSR, diffuse ST depression ddimer - negative A/P: Chest pain sounds GI in origin. She is already on BID PPI. With her history of scleroderma, GERD likely difficult to treat. She also has h/o esophageal cancer, previously getting XRT. Unclear current status. Will check CXR. May need further imaging such as CT or GI consult for EGD. Cardiac less likely. Will cycle troponins. Ddimer negative. Consider stress testing. Will check ECHO given history of bacteremia, rule out endocarditis. Also consider pericarditis given diffuse ST depression on EKG. Objective: Vital Signs Temp Pulse Resp BP Pulse Ox 36.7 C 91 12 96/64 L 98 04/06/17 23:27 04/06/17 23:43 04/06/17 23:27 04/06/17 23:43 04/06/17 23:27 Microbiology 04/06/17 10:10 Mycobacterial Smear (SELINA) - Final Finger - Bone 04/06/17 10:10 Mycobacterial Smear (SELINA) - Final Finger - Bone 04/06/17 10:10 Mycobacterial Smear (SELINA) - Final Finger - Tissue 04/04/17 20:30 Blood Panel (PCR) - Final Blood Streptococcus 04/06/17 10:10 Gram Stain - Final Finger - Bone 04/06/17 10:10 Gram Stain - Final Finger - Tissue 04/06/17 10:10 Gram Stain - Final Finger - Bone 04/06/17 10:10 Gram Stain - Final Finger - Eswab 04/06/17 10:10 Mycobacterial Smear (SELINA) - Final Finger - Eswab Mycobacterial Culture - Final Laboratory Results 04/05/17 04:41 04/05/17 04:41 04/05/17 04/06/17 04/07/17 05:59 05:59 05:59 Intake Total 300 1305 Output Total 5 Balance 300 1300 ICD10 Worksheet Patient Problems: Problems Problem Status Onset Osteomyelitis of finger of left hand Acute Constipation Acute Pneumonia Acute Scleroderma Acute Sepsis Acute Sinus tachycardia Acute Suicidal ideations Acute
[2017-04-07 05:22] LABS: % IMMATURE GRANULYOCYTES 0.5 % (0.0-1.1); ABSOLUTE IMMATURE GRANULOCYTES 0.03 10^3/uL (0.00-0.10); ADD DIFF? NO; ADD MORPH? YES; ADD SCAN? NO; ATYPICAL LYMPHOCYTE FLAG 0 (0-99); FRAGMENT RBC FLAG 20 (0-99); HEMATOCRIT 31.5 % (38.0-47.0); HEMOGLOBIN 9.7 g/dL (12.6-16.3); LEFT SHIFT FLG 0 (0-99); LIPEMIA HEMOLYSIS FLAG 80 (0-99); MEAN CELL HEMOGLOBIN 24.3 pg (27.9-34.1); MEAN CELL HEMOGLOBIN CONCENTR. 30.8 g/dL (32.4-36.7); MEAN CELL VOLUME 78.8 fL (81.5-99.8); PLATELET CLUMPS FLAG 10 (0-99); PLATELET COUNT 379 10^3/uL (150-400)
[2017-04-07 05:39] LABS: CALCIUM 8.7 mg/dL (8.5-10.4); CARBON DIOXIDE 25 mEq/l (22-31); CHLORIDE 107 mEq/L (97-110); CREATININE 0.6 mg/dL (0.6-1.0); GLOMERULAR FILTRATION RATE > 60; GLUCOSE 126 mg/dL (70-100); POTASSIUM 4.4 mEq/L (3.5-5.2)
[2017-04-07 05:42] LABS: RED CELL DISTRIBUTION WIDTH 21.3 % (11.5-15.2)
[2017-04-07] MEDS: oxyCODONE IR 5 MG TAB PO PRN ×5 (05:42→22:30)
[2017-04-07 05:46] LABS: TROPONIN I < 0.012 ng/mL (0-0.034)
[2017-04-07 05:50] LABS: ANION GAP 8 mEq/L (8-16); SODIUM 140 mEq/L (134-144)
[2017-04-07 07:15] LABS: HYPOCHROMIA 1+; MICROCYTES 1+; PLATELET ESTIMATE ADEQUATE (ADEQ)
[2017-04-07] MEDS: CITALOPRAM 20 MG TAB PO SCH (08:11)
[2017-04-07] MEDS: amLODIPine BESYLATE 5 MG TAB PO SCH (08:11)
[2017-04-07] MEDS: ENOXAPARIN 40 MG/0.4 ML SYR SC SCH (08:13)
[2017-04-07] MEDS: PANTOPRAZOLE SODIUM 40 MG TAB PO SCH ×2 (08:13→22:24)
--- NOTE | 2017-04-07 11:17 | PCMIDPN ---
Assessment/Plan: Assessment/Plan: * Osteomyelitis left 4th digit status post amputation: Hope amputation was curative. Operative findings reviewed with Dr. Hull. Continue ceftriaxone pending further culture data. Given amputation, may not need to modify if Staph aureus isolate is MRSA. * Streptococcal bacteremia: Oropharyngeal streptococci x2 species likely originating from finger ulceration. Repeat blood cultures to ensure clearing of bacteremia. Continue ceftriaxone. * Chronic right knee ulceration: Plain film of knee negative for osteomyelitis. 04/07/17 11:14 Subjective: Patient complains of left hand pain postoperatively. Objective: Vital Signs Temp Pulse Resp BP Pulse Ox 36.7 C 93 12 94/70 L 94 04/07/17 08:00 04/07/17 08:00 04/07/17 08:00 04/07/17 08:11 04/07/17 08:00 Microbiology 04/06/17 10:10 Gram Stain - Final Finger - Tissue 04/06/17 10:10 Gram Stain - Final Finger - Bone 04/06/17 10:10 Gram Stain - Final Finger - Bone 04/06/17 10:10 Gram Stain - Final Finger - Eswab 04/06/17 10:10 Mycobacterial Smear (SELINA) - Final Finger - Eswab Mycobacterial Culture - Final 04/04/17 20:30 Blood Panel (PCR) - Final Blood Streptococcus 04/06/17 10:10 Mycobacterial Smear (SELINA) - Final Finger - Bone 04/06/17 10:10 Mycobacterial Smear (SELINA) - Final Finger - Bone 04/06/17 10:10 Mycobacterial Smear (SELINA) - Final Finger - Tissue Laboratory Results 04/07/17 05:00 04/07/17 05:00 04/06/17 04/07/17 04/08/17 05:59 05:59 05:59 Intake Total 1763 Output Total 5 Balance 1758 Ceftriaxone # 1 Antibiotics # 2 Finger cultures with growth of Staphylococcus aureus and gram-negative clarke Blood cultures 04/07/2017 pending - Physical Exam General Appearance: alert, no apparent distress EENT: No thrush, No conjunctival petechiae Cardiac/Chest: regular rate, rhythm Extremities: other (Left hand dressed postoperatively; right knee with chronic ulceration without cellulitis) Abdomen: non-tender, No distended ICD10 Worksheet Patient Problems: Problems Problem Status Onset Osteomyelitis of finger of left hand Acute Constipation Acute Pneumonia Acute Scleroderma Acute Sepsis Acute Sinus tachycardia Acute Suicidal ideations Acute
--- NOTE | 2017-04-07 13:29 | ECHO ---
[id number] + + [address] : : [place] [address] : : [phone] + + Adult Echocardiographic Report + -----+ :Name: KIERRA BANKS JStudy Date: 04/07/2017 12:37 PM : : Hospital Admission Number: [id number] Location : 382: :: 1965 Gender: Female Height: 63 in : :Age: 52 yrs Race: WH Weight: 80 lb : :Reason For Study: CP, Bacteremia : : BSA: 1.3 meters2 : :History: No previous : + -----+ MMode/2D Measurements \T\ Calculations IVSd: 0.81 cm LVIDd: 4.1 cm FS: 26.2 % LVPWd: 0.72 cm LVIDs: 3.0 cm EDV(Teich): 74.2 ml ESV(Teich): 35.7 ml EF(Teich): 51.8 % Normal Measurement Values: + + :LVIDd (3.5-5.7cm) IVSd (0.6-1.1cm) LVPWd (0.6-1.1cm) Aortic Root (2.0-3.7cm)Left Atrium (1.5-4.0cm): :LV Vol(d) (76-115ml) LV Vol(s) (29-48ml) Ejec Fraction (50-65%)PV Eliu (0.6- 1.2m/s) TV Eliu (0.4-1.0m/s) : :MV E Eliu (0.8-1.0m/s)MV A Eliu (0.3-1.0m/s)LVOT Eliu (0.7-1.2m/s) Asc Ao Eliu ( 0.9-1.8m/s) : + + Doppler Measurements \T\ Calculations MV E max eliu: Ao mean PG: LV V1 max: PA V2 max: 92.8 cm/sec 3.2 mmHg 105.1 cm/sec 76.0 cm/sec MV A max eliu: Ao V2 mean: LV V1 max PG: PA max P.0 cm/sec 85.9 cm/sec 4.4 mmHg 2.3 mmHg MV E/A: 1.2 Ao V2 VTI: 22.4 cm LV V1 mean PG: MV dec time: 2.0 mmHg 0.18 sec LV V1 mean: 65.6 cm/sec LV V1 VTI: 18.7 cm Left Ventricle The left ventricle is normal in size and function. There is normal left ventricular wall thickness. Left ventricular systolic function is normal. Regional wall motion abnormalities cannot be excluded due to limited visualization. Right Ventricle The right ventricle is normal in size and function. Atria The left atrial size is normal. Right atrial size is normal. Mitral Valve The mitral valve leaflets appear thickened, but open well. There is no mitral valve stenosis. There is no mitral regurgitation noted. Tricuspid Valve The tricuspid valve is normal in structure and function. There is trace tricuspid regurgitation. Aortic Valve The aortic valve is not well visualized. Echodensity observed in LVOT; Can not exclude vegetation. There is no aortic stenosis. There is no aortic insufficiency. Pulmonic Valve The pulmonic valve is normal in structure and function. Great Vessels The aortic root is normal size. Pericardium/Pleural There is a fat pad seen. There is no pericardial effusion. Conclusion A complete two-dimensional transthoracic echocardiogram was performed (2D, M-mode, Doppler and color flow Doppler). The study was technically difficult. Patient would not roll on left side, patient underweight. The left ventricle is normal in size and function. Left ventricular systolic function is normal. The mitral valve leaflets appear thickened, but open well. There is trace tricuspid regurgitation. The aortic valve is not well visualized. Echodensity observed in LVOT; ?Though unlikely, cannot definitively exclude vegetation. Final Reading Physician: Dimas Flores signed on 04/07/2017 01:28 PM Ordering Physician: Suki Horton Performed By: Mari Cantor
[2017-04-07] MEDS ORDERED: MAG HYDROX/AL HYDROX/SIMETH 30 ML UDCUP PO ONE (14:11)
[2017-04-07] MEDS ORDERED: HYOSCYAMINE SULFATE 0.125 MG TAB PO ONE (14:11)
[2017-04-07] MEDS ORDERED: LIDOCAINE 2% VISCOUS 15 ML UDCUP PO ONE (14:11)
--- NOTE | 2017-04-07 14:37 | HOSPPROG ---
Hospitalist Progress Note Assessment/Plan: # strep bacteremia - polymicrobial - rocephin # possible vegetation on AV - cont tele, no blocks on ECG - will check a cardiac MRI; DEEPALI somewhat high risk given hx scleroderma, esophageal cancer s/p XRT # osteomyelitis 3rd/4th digit - staph a, GNR from culture, follow susceptibility # chest pain - unlikely ACS, consider GI or pericarditis - trial of GI cocktail # scleroderma # hx esophageal cancer s/p XRT # severe protein calorie malnutrition - BMI 14 # chronic aspiration # anemia - chronic and stable Subjective: ongoing chest pain that has been present for about 2 weeks Objective: Vital Signs Temp Pulse Resp BP Pulse Ox 36.7 C 80 14 98/71 L 92 04/07/17 12:00 04/07/17 12:00 04/07/17 12:00 04/07/17 13:15 04/07/17 12:00 Microbiology 04/06/17 10:10 Gram Stain - Final Finger - Eswab 04/06/17 10:10 Mycobacterial Smear (SELINA) - Final Finger - Eswab Mycobacterial Culture - Final 04/06/17 10:10 Gram Stain - Final Finger - Tissue 04/06/17 10:10 Gram Stain - Final Finger - Bone 04/06/17 10:10 Gram Stain - Final Finger - Bone 04/04/17 20:30 Blood Panel (PCR) - Final Blood Streptococcus 04/06/17 10:10 Mycobacterial Smear (SELINA) - Final Finger - Bone 04/06/17 10:10 Mycobacterial Smear (SELINA) - Final Finger - Bone 04/06/17 10:10 Mycobacterial Smear (SELINA) - Final Finger - Tissue Laboratory Results 04/07/17 05:00 04/07/17 05:00 04/06/17 04/07/17 04/08/17 05:59 05:59 05:59 Intake Total 1763 Output Total 5 Balance 1758 discussed with Nadia Arango and - check cardiac MRI chart reviewed ECG personally reviewed - Physical Exam Constitutional: chronically ill appearing Cardiovascular: regular rate and rhythym, no murmur, rub, or gallop Respiratory: no respiratory distress, no rales or rhonchi Gastrointestinal: normoactive bowel sounds, soft, non-tender abdomen ICD10 Worksheet Patient Problems: Problems Problem Status Onset Pneumonia Acute Scleroderma Acute Sepsis Acute Sinus tachycardia Acute Suicidal ideations Acute Constipation Acute Osteomyelitis of finger of left hand Acute
[2017-04-07] MEDS: traZODone 100 MG TAB PO SCH (22:28)
[2017-04-08] MEDS: oxyCODONE IR 5 MG TAB PO PRN ×5 (02:25→21:18)
[2017-04-08] MEDS: ONDANSETRON DISINTEGRATING 4 MG TAB PO PRN ×2 (06:16→16:06)
[2017-04-08] MEDS: ENOXAPARIN 40 MG/0.4 ML SYR SC SCH (08:33)
[2017-04-08] MEDS: PANTOPRAZOLE SODIUM 40 MG TAB PO SCH ×2 (08:33→21:19)
[2017-04-08] MEDS: CITALOPRAM 20 MG TAB PO SCH (08:33)
[2017-04-08] MEDS: amLODIPine BESYLATE 5 MG TAB PO SCH (09:06)
[2017-04-08] MEDS ORDERED: GADOBUTROL 10 ML VIAL IVP ONE ×2 (10:02→17:13)
[2017-04-08] MEDS ORDERED: LIDOCAINE 2% VISCOUS 15 ML UDCUP PO ONE (12:54)
[2017-04-08] MEDS ORDERED: HYOSCYAMINE SULFATE 0.125 MG TAB PO ONE (12:54)
[2017-04-08] MEDS ORDERED: MAG HYDROX/AL HYDROX/SIMETH 30 ML UDCUP PO ONE (12:54)
--- NOTE | 2017-04-08 12:59 | HOSPPROG ---
Hospitalist Progress Note Assessment/Plan: # strep bacteremia - polymicrobial - rocephin # possible vegetation on AV - cont tele, no blocks on ECG - check cardiac MRI (did not tolerate today); will try to pre-medicate with GI cocktail, zofran, ativan # osteomyelitis 3rd/4th digit - MSSA, citrobacter # chest pain - most likely GI, better with GI cocktail - cont protonix, tums prn # scleroderma # hx esophageal cancer s/p XRT - has a hx of esophageal strictures s/p dilation - she has no real dysphagia or odynophagia currently # severe protein calorie malnutrition - BMI 14 # chronic aspiration # anemia - chronic and stable # suicidal ideation, resolved - she currently has no thoughts of self harm and contracts for safety Subjective: concerned about her heart; denies SI; did not tolerate cardiac MRI Objective: Vital Signs Temp Pulse Resp BP Pulse Ox 36.7 C 79 14 102/76 93 04/08/17 07:35 04/08/17 07:35 04/08/17 07:35 04/08/17 07:35 04/08/17 07:35 Microbiology 04/06/17 10:10 Gram Stain - Final Finger - Bone 04/06/17 10:10 Gram Stain - Final Finger - Tissue 04/06/17 10:10 Gram Stain - Final Finger - Bone 04/06/17 10:10 Gram Stain - Final Finger - Eswab 04/06/17 10:10 Mycobacterial Smear (SELINA) - Final Finger - Eswab Mycobacterial Culture - Final 04/04/17 20:30 Blood Panel (PCR) - Final Blood Streptococcus Laboratory Results 04/07/17 05:00 04/07/17 05:00 04/07/17 04/08/17 04/09/17 05:59 05:59 05:59 Intake Total 1763 2002 Output Total 5 Balance 1758 2002 - Physical Exam Constitutional: chronically ill appearing Cardiovascular: regular rate and rhythym, no murmur, rub, or gallop Respiratory: no respiratory distress, no rales or rhonchi, clear to auscultation Gastrointestinal: normoactive bowel sounds, soft, non-tender abdomen, no palpable masses ICD10 Worksheet Patient Problems: Problems Problem Status Onset Pneumonia Acute Scleroderma Acute Sepsis Acute Sinus tachycardia Acute Suicidal ideations Acute Constipation Acute Osteomyelitis of finger of left hand Acute
[2017-04-08] MEDS ORDERED: MAGNESIUM HYDROXIDE 30 ML UDCUP PO PRN (13:17)
[2017-04-08] MEDS ORDERED: LACTULOSE 20 GM/30 ML UDCUP PO PRN (13:17)
[2017-04-08] MEDS ORDERED: BISACODYL 10 MG SUPP PR PRN (13:17)
[2017-04-08] MEDS: CALCIUM CARBONATE 500 MG CHEWABLE TAB PO PRN (13:31)
[2017-04-08] MEDS: LORazepam 0.5 MG TAB PO PRN (16:06)
--- NOTE | 2017-04-08 16:40 | PCMIDPN ---
Assessment/Plan: Assessment/Plan: * Osteomyelitis left 4th digit status post amputation: Operative cultures with growth of MSSA and Citrobacter. Suspect amputation likely curative for osteomyelitis. Await bone pathology for margins. Follow clinical exam once dressings removed. * Streptococcal bacteremia: Oropharyngeal streptococci x2 species likely originating from finger ulceration. ECHO shows echodensity in left ventricular outflow tract with question of this being printing sales representative of aortic valve vegetation. Cardiac MRI scheduled for today given potential for more difficult DEEPALI in the setting of known scleroderma and prior esophageal cancer. Unusual for endocarditis to be associated with only 1 set of positive blood cultures and rapid clearance however. * Chronic right knee ulceration: Plain film of knee negative for osteomyelitis. 04/08/17 16:37 04/08/17 16:39 04/08/17 16:43 Subjective: Overall patient feels better. Could not tolerate MRI this a.m. and will be rescheduled for this p.m. Objective: Vital Signs Temp Pulse Resp BP Pulse Ox 36.7 C 97 15 93/70 L 94 04/08/17 16:00 04/08/17 16:00 04/08/17 16:00 04/08/17 16:00 04/08/17 16:00 Microbiology 04/06/17 10:10 Gram Stain - Final Finger - Bone 04/06/17 10:10 Gram Stain - Final Finger - Tissue 04/06/17 10:10 Gram Stain - Final Finger - Bone 04/06/17 10:10 Gram Stain - Final Finger - Eswab 04/06/17 10:10 Mycobacterial Smear (SELINA) - Final Finger - Eswab Mycobacterial Culture - Final Laboratory Results 04/07/17 05:00 04/07/17 05:00 04/07/17 04/08/17 04/09/17 05:59 05:59 05:59 Intake Total 1763 2002 Output Total 5 Balance 1758 2002 Ceftriaxone # 2, antibiotics # 3 Blood cultures 04/07/2017 no growth Finger cultures with growth of MSSA and Citrobacter - Physical Exam General Appearance: alert, no apparent distress EENT: No conjunctival petechiae Cardiac/Chest: regular rate, rhythm, No systolic murmur Extremities: other (Left hand dressed postoperatively) ICD10 Worksheet Patient Problems: Problems Problem Status Onset Osteomyelitis of finger of left hand Acute Constipation Acute Pneumonia Acute Scleroderma Acute Sepsis Acute Sinus tachycardia Acute Suicidal ideations Acute
[2017-04-08] MEDS: HYDROmorphONE/DILAUDID 1 MG/ML SYR IVP PRN ×2 (19:24→23:52)
[2017-04-08] MEDS: traZODone 100 MG TAB PO SCH (21:18)
[2017-04-08] MEDS: SENNOSIDES/DOCUSATE SODIUM TAB PO SCH (21:19)
[2017-04-09] MEDS: oxyCODONE IR 5 MG TAB PO PRN ×4 (05:08→16:42)
[2017-04-09] MEDS: HYDROmorphONE/DILAUDID 1 MG/ML SYR IVP PRN ×5 (05:09→22:33)
[2017-04-09] MEDS: SENNOSIDES/DOCUSATE SODIUM TAB PO SCH ×2 (08:20→20:55)
[2017-04-09] MEDS: CITALOPRAM 20 MG TAB PO SCH (08:20)
[2017-04-09] MEDS: PANTOPRAZOLE SODIUM 40 MG TAB PO SCH ×2 (08:20→20:55)
[2017-04-09] MEDS: ENOXAPARIN 40 MG/0.4 ML SYR SC SCH (08:21)
--- NOTE | 2017-04-09 08:49 | HOSPPROG ---
Hospitalist Progress Note Assessment/Plan: Renetta is a 52-year-old female has a past medical history of scleroderma and frostbite as well as esophageal cancer. She has chronic pain and chronic nonhealing will wounds involving her right knee as well as her left 3rd and 4th fingers. Today is my 1st encounter with the patient. Chart reviewed. # strep bacteremia - polymicrobial - Rocephin # possible vegetation on AV - cont tele, no blocks on ECG - check cardiac MRI (did not tolerate) x2 even with medications -will discuss w ID and see if a DEEPALI could be done (concerned about the scleroderma) # chronic right knee ulceration # osteomyelitis 3rd/4th digit - MSSA, citrobacter -status post amputation of 3rd finger, 4th finger amputation/revision -pain from this/ frequently asking for pain meds # hypotension -parameters placed on bp meds -asymptomatic # chest pain - most likely GI, better with GI cocktail - cont protonix, tums prn -non further # scleroderma # hx esophageal cancer s/p XRT - has a hx of esophageal strictures s/p dilation - she has no real dysphagia or odynophagia currently # severe protein calorie malnutrition - BMI 14 # chronic aspiration # anemia - chronic and stable # suicidal ideation, resolved - she currently has no thoughts of self harm and contracts for safety # homelessness # dvt prophylaxis: LMWH #Plan: will discuss with ID about getting a DEEPALI to evaluated heart valves Subjective: renetta says she needs more pain medications/ requesting iv pain meds. Objective: Vital Signs Temp Pulse Resp BP Pulse Ox 37.1 C 95 18 90/57 L 98 04/09/17 07:21 04/09/17 07:21 04/09/17 07:21 04/09/17 07:21 04/09/17 07:21 Microbiology 04/06/17 10:10 Gram Stain - Final Finger - Bone 04/06/17 10:10 Gram Stain - Final Finger - Bone 04/06/17 10:10 Gram Stain - Final Finger - Tissue 04/06/17 10:10 Gram Stain - Final Finger - Eswab Laboratory Results 04/07/17 05:00 04/07/17 05:00 04/08/17 04/09/17 04/10/17 05:59 05:59 05:59 Intake Total 2002 200 Balance 2002 200 - Physical Exam Constitutional: uncomfortable, unkempt, cachectic Eyes: PERRL Ears, Nose, Mouth, Throat: hearing normal Cardiovascular: regular rate and rhythym, no murmur, rub, or gallop Respiratory: no respiratory distress Gastrointestinal: normoactive bowel sounds Skin: warm, other (left hand in dressing) Musculoskeletal: muscular tenderness Neurologic: AAOx3 Psychiatric: interacting appropriately, anxious ICD10 Worksheet Patient Problems: Problems Problem Status Onset Osteomyelitis of finger of left hand Acute Constipation Acute Pneumonia Acute Scleroderma Acute Sepsis Acute Sinus tachycardia Acute Suicidal ideations Acute
[2017-04-09] MEDS: amLODIPine BESYLATE 5 MG TAB PO SCH (09:25)
--- NOTE | 2017-04-09 16:27 | PCMIDPN ---
Assessment/Plan: Assessment: Osteomyelitis left 4th digit-Citrobacter and MSSA both growing in culture. Patient had amputated of surgery on 04/06. Awaiting final path results but this is likely going to be curative. Streptococcal bacteremia likely from left upper extremity source. Currently receiving ceftriaxone daily. Will continue this therapy. Anticipated 2 week course from blood culture clearance. Blood cleared on 04/07/2017. Plan: 1. Continue ceftriaxone. Anticipate stop date on 04/21/2017. 2. Await bone pathology report from left 4th digit. Subjective: Patient resting in her hospital room. She is very spirited and talkative. No particular complaints. Objective: Ceftriaxone # 3 Vital Signs Temp Pulse Resp BP Pulse Ox 36.8 C 75 16 124/70 H 92 04/09/17 15:23 04/09/17 15:23 04/09/17 15:23 04/09/17 15:23 04/09/17 15:23 Microbiology 04/06/17 10:10 Gram Stain - Final Finger - Bone 04/06/17 10:10 Gram Stain - Final Finger - Tissue 04/06/17 10:10 Gram Stain - Final Finger - Bone 04/06/17 10:10 Gram Stain - Final Finger - Eswab Laboratory Results 04/07/17 05:00 04/07/17 05:00 04/08/17 04/09/17 04/10/17 05:59 05:59 05:59 Intake Total 2002 200 Balance 2002 200 - Physical Exam General Appearance: WD/WN, alert, no apparent distress, non-toxic Respiratory: lungs clear, normal breath sounds, No respiratory distress Cardiac/Chest: regular rate, rhythm, No tachycardia Extremities: No non-tender, No normal inspection (Left hand postop status post amputation 4th digit) Skin: normal color, warm/dry, No rash Neuro/Psych: alert, normal mood/affect, oriented x 3 ICD10 Worksheet Patient Problems: Problems Problem Status Onset Osteomyelitis of finger of left hand Acute Constipation Acute Pneumonia Acute Scleroderma Acute Sepsis Acute Sinus tachycardia Acute Suicidal ideations Acute
--- NOTE | 2017-04-09 16:53 | SOAPPROG ---
SOAP Progress Note Assessment/Plan: Assessment: S/P 4th finger amputation, revision 3rd finger stump Plan: 04/09/17 16:52 Cont local wound care Abx per ID Subjective: Pain overall better Objective: DRessing changed wounds healing nicely no drainage Vital Signs Temp Pulse Resp BP Pulse Ox 36.8 C 75 16 124/70 H 92 04/09/17 15:23 04/09/17 15:23 04/09/17 15:23 04/09/17 15:23 04/09/17 15:23 Microbiology 04/06/17 10:10 Gram Stain - Final Finger - Bone 04/06/17 10:10 Gram Stain - Final Finger - Tissue 04/06/17 10:10 Gram Stain - Final Finger - Bone 04/06/17 10:10 Gram Stain - Final Finger - Eswab Laboratory Results 04/07/17 05:00 04/07/17 05:00 04/08/17 04/09/17 04/10/17 05:59 05:59 05:59 Intake Total 2002 200 Balance 2002 200 ICD10 Worksheet Patient Problems: Problems Problem Status Onset Osteomyelitis of finger of left hand Acute Constipation Acute Pneumonia Acute Scleroderma Acute Sepsis Acute Sinus tachycardia Acute Suicidal ideations Acute
[2017-04-09] MEDS: traZODone 100 MG TAB PO SCH (20:55)
[2017-04-10 04:39] LABS: % IMMATURE GRANULYOCYTES 0.3 % (0.0-1.1); ABSOLUTE IMMATURE GRANULOCYTES 0.01 10^3/uL (0.00-0.10); ADD DIFF? NO; ADD MORPH? YES; ADD SCAN? NO; ATYPICAL LYMPHOCYTE FLAG 0 (0-99); FRAGMENT RBC FLAG 20 (0-99); HEMATOCRIT 32.4 % (38.0-47.0); HEMOGLOBIN 10.1 g/dL (12.6-16.3); LEFT SHIFT FLG 0 (0-99); LIPEMIA HEMOLYSIS FLAG 80 (0-99); MEAN CELL HEMOGLOBIN 24.5 pg (27.9-34.1); MEAN CELL HEMOGLOBIN CONCENTR. 31.2 g/dL (32.4-36.7); MEAN CELL VOLUME 78.5 fL (81.5-99.8); PLATELET CLUMPS FLAG 10 (0-99); PLATELET COUNT 344 10^3/uL (150-400); RED BLOOD CELL COUNT 4.13 10^6/uL (4.18-5.33)
[2017-04-10 04:44] LABS: RED CELL DISTRIBUTION WIDTH 21.1 % (11.5-15.2)
[2017-04-10 05:16] LABS: MICROCYTES 1+; PLATELET ESTIMATE ADEQUATE (ADEQ)
[2017-04-10 05:18] LABS: ALANINE AMINOTRANSFERASE 34 IU/L (9-52); ALKALINE PHOSPHATASE 72 IU/L (38-126); ANION GAP 9 mEq/L (8-16); ASPARTATE AMINOTRANSFERASE 22 IU/L (14-46); BILIRUBIN,TOTAL 0.3 mg/dL (0.1-1.4); CALCIUM 9.3 mg/dL (8.5-10.4); CARBON DIOXIDE 25 mEq/l (22-31); CHLORIDE 106 mEq/L (97-110); CREATININE 0.5 mg/dL (0.6-1.0); GLOMERULAR FILTRATION RATE > 60; GLUCOSE 96 mg/dL (70-100); POTASSIUM 4.3 mEq/L (3.5-5.2); SODIUM 140 mEq/L (134-144); TOTAL PROTEIN 5.7 g/dL (6.3-8.2)
[2017-04-10] MEDS: oxyCODONE IR 5 MG TAB PO PRN ×2 (05:20→15:55)
[2017-04-10] MEDS ORDERED: NS 1,000 ML IV SCH (06:00)
--- NOTE | 2017-04-10 08:46 | GCON ---
[f rep st] CONSULTATION CARDIOLOGY CONSULTATION DATE OF CONSULTATION: 04/09/2017 REFERRING PHYSICIAN: Marleni Hilliard NP INDICATIONS: Possible endocarditis. HISTORY OF PRESENT ILLNESS: The patient is a pleasant 52-year-old female who has a complicated and complex past medical history. Her major medical condition appears to be her history of scleroderma. She has had a difficult time over the last 1 to 1-1/2 years with multiple hand surgeries requiring various digital amputations. Most recently, she is hospitalized with pain and evidence of osteomye litis in her left 4th finger at the site of a previous amputation and her left 3rd finger. On April 06, she underwent revision of her 4th finger amputation and 3rd finger amputation of her left hand . Apparently, this procedure was not complicated. Pathology is currently pending. Microbiology ca s indicated evidence of Staphylococcus aureus infection within the bone (osteomyelitis). Additional ly, there is Citrobacter from the bone. Previous blood cultures drawn on April [address] reptococcus species, one Streptococcus parasanguis and one Streptococcus salivarius. During her hos pitalization here, she has remained afebrile. Additionally, she has not had any indication of leuko cytosis. As part of her workup during her hospitalization here, she had an echocardiogram which was completed on April 06. I personally reviewed that study. Her ejection fraction was noted to be n ormal. She had age-related calcifications noted along the mitral annulus and a slight degree of aor tic sclerosis. Her mitral valve did appear to be thickened, although in a nonspecific fashion. Add itionally, due to the calcifications of her aortic valve, it was difficult to exclude vegetations. This echocardiogram was nondiagnostic; however, there were suspicious abnormalities that might sugge st endocarditis. At the present time, she states that she is feeling well. Her pain is controlled. Occasionally she has had mild chest discomfort. This usually occurs when she lies down at night. She has been taking a great deal of Aleve and ibuprofen for pain control of her hand. Additionally , she has a history of dyspepsia. Currently, she denies any swallowing difficulties. She has had p revious difficulties with esophageal strictures. Apparently, she has had a history of esophageal ca ncer as well. Presently she denies odynophagia/dysphagia. PAST MEDICAL HISTORY: 1. Scleroderma. 2. History of gastroesophageal reflux disease. 3. COPD. 4. 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 5. History of esophageal cancer. PAST SURGICAL HISTORY: 1. Prior cholecystectomy. 2. Multiple bilateral upper extremity finger amputations over the last year and a half. ALLERGIES: None. SOCIAL HISTORY: She is currently not . She is accompanied today by her sister. She does ca ve 4 children, all of whom live locally, and 1 grandchild. She used to smoke heavily, although she has currently cut down to about 3 cigarettes a day. She uses no alcohol. She does use marijuana al though no other recreational drugs. She is currently on disability and does not exercise regularly. FAMILY HISTORY: Noncontributory at this point. REVIEW OF SYSTEMS: Other than above, a full 10-point review of systems was performed and is otherwi se negative. PHYSICAL EXAMINATION: VITAL SIGNS: Her blood pressure is 124/70 with a mean of 88, heart rate 75, O2 saturations 92% on room air. Respiratory rate 16. She is afebrile. GENERAL: She is a very thi n-appearing female, in no acute distress. HEENT: She is edentulous. She has no jugular v enous distention. Carotids are 2+ with no bruits. RESPIRATORY: Bilaterally, she has reduced breat h sounds with no evidence of wheezes or rales. She is using no accessory muscles and speaks in full sentences. CARDIAC: Precordial inspection is unremarkable. PMI is indistinct on auscultation. S he has a regular rate and rhythm. There is a 1/6 systolic ejection murmur at the left sternal borde r. No 3rd or 4th heart sounds are noted. ABDOMEN: Soft and nontender. She has no masses noted. Her abdominal aorta is nonpalpable. EXTREMITIES: Her left upper extremity is bandaged. Her right upper extremity demonstrates residual changes from her previous digital amputations. Her feet are w arm and dry and well perfused. She has evidence of onychomycosis. She has 2+ dorsal pedal and post erior tibial pulses. There is no edema. I do not appreciate any Janeway or Osler lesions. VASCULA TURE: She has 2+ radial pulses. As stated above, carotids are 2+ bilaterally with no bruits. She has bounding lower extremity pulses. NEUROLOGIC: Alert and oriented. Pleasant mood and affect. R esponds appropriately. Moves all 4 limbs spontaneously. DATABASE: Her echocardiogram is as detailed above and there is a full and separately dictated repor t on the chart. Her electrocardiogram demonstrates sinus rhythm at 79 beats per minute with nonspec ific ST and T changes. D-dimer was 0.7. Sodium 140, potassium 4.4, BUN 8, creatinine 0.6, glucose 126. Troponins are negative. Calcium 8.7. White blood cell count 6, hematocrit 31.5, platelet cou nt 379,000. Chest x-ray: Right lung scarring with no acute process. Cardiac MRI: Technically murillo ited and incomplete due to motion artifact. Again noted is thickening of the mitral valve leaflets consistent with findings on her surface echocardiogram. X-rays of her knees were negative for osteo myelitis. X-rays of her hand from April 06 demonstrated findings consistent with osteomyelitis of the left 4th digit. IMPRESSION: 1. Recurrent upper extremity osteomyelitis, status post amputation. Identified pathogens include S taphylococcus aureus. 2. History of positive blood cultures. Interestingly, her blood cultures were positive with a diff erent organism than that found in her osteomyelitis specimens. She had 2 different streptococcus sp ecies found in her blood, both of which were oral pathogens. It should be noted that the patient ca d all of her teeth extracted approximately 16 to 18 months ago. 3. History of scleroderma. 4. History of abnormal echocardiogram suggesting age-related calcific valvular changes with nonspec ific thickening of the mitral leaflets. Certainly, her surface echocardiogram was not sufficient en ough to exclude the possibility of endocarditis. 5. History of extensive tobacco use. 6. History of chronic obstructive pulmonary disease. 7. History of gastroesophageal reflux disease. 8. History of esophageal cancer. DISCUSSION: The patient is a pleasant 52-year-old who presents now with multiple episodes of care i nvolving amputations of her upper extremity digits. Most recently, this was performed 2 days ago. Pathologic specimens indicate osteomyelitis with Staphylococcus aureus. Additionally, she has a his tory of 2 different streptococcus species identified from blood cultures. We were consulted gleni homer the possibility of endocarditis after her surface echocardiogram returned abnormal. I did review that study. There are minor nonspecific changes noted on her surface echocardiogram, none of which are pathognomonic for bacterial endocarditis. I think that if she does have bacterial endocarditis , this is not likely the primary process and would be secondary to her recurrent osteomyelitis which potentially has seeded her mitral valve. Fortunately, the valves themselves appeared to be relativ pastor normal with no indication of significant insufficiency, large vegetations or stenosis. As a res ult, I think it is unlikely that any future findings would result in the necessity for a more advanc ed treatment option up to and including surgery. Fortunately, she also appears to be responding to her current therapy. RECOMMENDATIONS: 1. I have scheduled her to have a transesophageal echocardiogram tomorrow. We will initially proce ed with general anesthesia to help us pass the probe, especially in light of her scleroderma, reflux and previous esophageal cancer. If need be, we will try a pediatric probe. 2. I will defer to her primary team regarding management of her osteomyelitis and abnormal microbio logic findings. 3. Further recommendations will be made following completion of her DEEPALI. /[id number]/[id number]
[2017-04-10] MEDS: PANTOPRAZOLE SODIUM 40 MG TAB PO SCH ×2 (09:19→19:57)
[2017-04-10] MEDS: CITALOPRAM 20 MG TAB PO SCH (09:19)
[2017-04-10] MEDS: SENNOSIDES/DOCUSATE SODIUM TAB PO SCH ×2 (09:19→19:57)
[2017-04-10] MEDS: HYDROmorphONE/DILAUDID 1 MG/ML SYR IVP PRN (09:29)
--- NOTE | 2017-04-10 09:45 | HOSPPROG ---
Hospitalist Progress Note Assessment/Plan: Renetta is a 52-year-old female has a past medical history of scleroderma and frostbite as well as esophageal cancer. She has chronic pain and chronic nonhealing will wounds involving her right knee as well as her left 3rd and 4th fingers. # strep bacteremia - polymicrobial - Rocephin # possible vegetation on AV - cont tele, no blocks on ECG - cardiac MRI (did not tolerate) x2 even with medications - To get a DEEPALI today/ appreciate Dr Thomas seeing her and evaluating her for possible endocarditis # chronic right knee ulceration # acute osteomyelitis 3rd/4th digit (left hand) - MSSA, citrobacter -status post amputation of 3rd finger, 4th finger amputation/revision # hypotension -parameters placed on bp meds -asymptomatic # chest pain - most likely GI, better with GI cocktail - cont protonix, tums prn - non further # scleroderma # hx esophageal cancer s/p XRT - has a hx of esophageal strictures s/p dilation - she has no real dysphagia or odynophagia currently # severe protein calorie malnutrition - BMI 14 # chronic aspiration # anemia - chronic and stable # suicidal ideation, resolved - she currently has no thoughts of self harm and contracts for safety # homelessness # dvt prophylaxis: LMWH #Plan: DEEPALI today Subjective: Renetta says she has been swallowing fine and feels good about getting the DEEPALI. C/O pain to her hand area. Objective: Vital Signs Temp Pulse Resp BP Pulse Ox 36.5 C 77 14 90/58 L 96 04/10/17 08:00 04/10/17 08:00 04/10/17 08:00 04/10/17 04:00 04/10/17 08:00 Microbiology 04/04/17 20:30 Blood Culture - Final Blood Streptococcus Parasanguinis Streptococcus Salivarius Blood Panel (PCR) - Final Streptococcus 04/06/17 10:10 Gram Stain - Final Finger - Bone 04/06/17 10:10 Gram Stain - Final Finger - Tissue 04/06/17 10:10 Gram Stain - Final Finger - Bone 04/06/17 10:10 Gram Stain - Final Finger - Eswab Laboratory Results 04/10/17 04:24 04/10/17 04:24 04/09/17 04/10/17 04/11/17 05:59 05:59 05:59 Intake Total 200 Balance 200 - Physical Exam Constitutional: chronically ill appearing, cachectic Eyes: PERRL, EOMI Ears, Nose, Mouth, Throat: hearing normal Cardiovascular: regular rate and rhythym Respiratory: no respiratory distress Skin: warm Musculoskeletal: full muscle strength Neurologic: AAOx3 Psychiatric: interacting appropriately ICD10 Worksheet Patient Problems: Problems Problem Status Onset Osteomyelitis of finger of left hand Acute Constipation Acute Pneumonia Acute Scleroderma Acute Sepsis Acute Sinus tachycardia Acute Suicidal ideations Acute
[2017-04-10] MEDS: amLODIPine BESYLATE 5 MG TAB PO SCH (10:02)
--- NOTE | 2017-04-10 12:18 | PCMIDPN ---
Assessment/Plan: Assessment/Plan: 1. Streptococal sepsis: - f/u blood cx from 04/07/17 ngtd - TTE noted. Cardiac MRi noted. For DEEPALI today -On Ceftriaxone - Await DEEPALI to determine length of therapy. 2. Osteomyelitis of Left 4th finger: s/p amputation -Path pending -Cx with MSSA, and Citrobacter -Covered by Ceftriaxone for now. --awaiting path to determine length of therapy Meds Ceftriaxone 1g daily- 04/07/17 Subjective: Afebrile. Denies sob, cough. hasn't moved bowels in few days. mild abd discomfort. Objective: Vital Signs Temp Pulse Resp BP Pulse Ox 36.5 C 77 14 85/61 L 96 04/10/17 08:00 04/10/17 08:00 04/10/17 08:00 04/10/17 09:55 04/10/17 08:00 Microbiology 04/06/17 10:10 Mycobacterial Smear (SELINA) - Final Finger - Bone 04/06/17 10:10 Mycobacterial Smear (SELINA) - Final Finger - Tissue 04/06/17 10:10 Mycobacterial Smear (SELINA) - Final Finger - Bone 04/04/17 20:30 Blood Culture - Final Blood Streptococcus Parasanguinis Streptococcus Salivarius Blood Panel (PCR) - Final Streptococcus 04/06/17 10:10 Gram Stain - Final Finger - Bone 04/06/17 10:10 Gram Stain - Final Finger - Tissue 04/06/17 10:10 Gram Stain - Final Finger - Bone 04/06/17 10:10 Gram Stain - Final Finger - Eswab Laboratory Results 04/10/17 04:24 04/10/17 04:24 04/09/17 04/10/17 04/11/17 05:59 05:59 05:59 Intake Total 200 Balance 200 - Physical Exam General Appearance: alert, no apparent distress Respiratory: lungs clear Cardiac/Chest: regular rate, rhythm Extremities: other (right hand with one finger missing. left hand in dressing. ONly thumb and 5th finger visible Other fingers have had some ampututation.) Abdomen: normal bowel sounds, non-tender, soft, No distended ICD10 Worksheet Patient Problems: Problems Problem Status Onset Osteomyelitis of finger of left hand Acute Constipation Acute Pneumonia Acute Scleroderma Acute Sepsis Acute Sinus tachycardia Acute Suicidal ideations Acute
[2017-04-10] MEDS ORDERED: PROPOFOL 200 MG/20 ML VIAL ONE ×2 (13:48)
--- NOTE | 2017-04-10 14:43 | ECHO ---
[id number] + + [address] : : [facility] [address] : : [phone] + + Transesophageal Echocardiographic Report + -----+ :Name: KIERRA BANKS JStudy Date: 04/10/2017 01:37 PM : : Hospital Admission Number: [id number] Location : 382: :: 1965 Gender: Female Height: 63 in : :Age: 52 yrs Race: WH Weight: 85 lb : :Reason For Study: Eval Valves : : BSA: 1.3 meters2 : :History: Eval for SBE : + -----+ Left Ventricle The left ventricle is normal in size and function. The left ventricular ejection fraction is normal. Ejection Fraction = 55-60%. Right Ventricle The right ventricle is normal in size and function. Atria Injection of contrast documented no interatrial shunt. The interatrial septum is intact with no evidence for an atrial septal defect. No left atrial mass or thrombus visualized. No thrombus is detected in the left atrial appendage. Mitral Valve The mitral valve is normal in structure and function. There is no evidence of mitral valve prolapse. There is no mitral valve stenosis. There is no mitral regurgitation noted. Tricuspid Valve The tricuspid valve is normal in structure and function. There is trace tricuspid regurgitation. Aortic Valve The aortic valve is normal in structure and function. The aortic valve is trileaflet. There is no aortic stenosis. There is no aortic insufficiency. Pulmonic Valve The pulmonic valve is normal in structure and function. Vessels The aortic root is normal size. Pericardium There is no pericardial effusion. Conclusion A 2D transesophageal echocardiogram with color flow Doppler was performed. There is no evidence of mass or vegetation. Normal LV size and wall motion. The left ventricular ejection fraction is normal. The left ventricle is normal in size and function. Ejection Fraction = 55-60%. The interatrial septum is intact with no evidence for an atrial septal defect. Injection of contrast documented no interatrial shunt. No left atrial mass or thrombus visualized. No thrombus is detected in the left atrial appendage. Normal appearing cardiac valves without sifnificant stenosis or insufficiency. There is no evidence of mass or vegetation of the aortic or mitral valves. There is trace tricuspid regurgitation. Final Reading Physician: Dimas Andres signed on 04/10/2017 02:42 PM Ordering Physician: Marvin Thomas Performed By: Marvin Thomas MD
[2017-04-10] MEDS: POLYETHYLENE GLYCOL 3350 17 GM PKT PO PRN (19:19)
[2017-04-10] MEDS: OXYCODONE/APAP 5/325 TAB PO PRN ×2 (19:19→22:55)
[2017-04-10] MEDS: traZODone 100 MG TAB PO SCH (21:22)
[2017-04-11] MEDS: OXYCODONE/APAP 5/325 TAB PO PRN ×2 (02:32→09:18)
[2017-04-11] MEDS: CITALOPRAM 20 MG TAB PO SCH (09:18)
[2017-04-11] MEDS: PANTOPRAZOLE SODIUM 40 MG TAB PO SCH ×2 (09:19→20:56)
[2017-04-11] MEDS: SENNOSIDES/DOCUSATE SODIUM TAB PO SCH ×2 (09:20→20:56)
[2017-04-11] MEDS: ENOXAPARIN 40 MG/0.4 ML SYR SC SCH (09:20)
[2017-04-11] MEDS: amLODIPine BESYLATE 5 MG TAB PO SCH (09:32)
[2017-04-11] MEDS: LORazepam 0.5 MG TAB PO PRN (10:42)
[2017-04-11] MEDS ORDERED: ALBUTEROL 200 PUFFS/18 GM MDI IH PRN (11:33)
--- NOTE | 2017-04-11 12:25 | HOSPPROG ---
Hospitalist Progress Note Assessment/Plan: Renetta is a 52-year-old female has a past medical history of scleroderma and frostbite as well as esophageal cancer. She has chronic pain and chronic nonhealing wounds involving her right knee as well as her left 3rd and 4th fingers. # strep bacteremia - polymicrobial - Rocephin -DEEPALI shows no vegetation # chronic right knee ulceration # acute osteomyelitis 3rd/4th digit (left hand) - MSSA, citrobacter -status post amputation of 3rd finger, 4th finger amputation/revision # hypotension -parameters placed on bp meds -asymptomatic # chest pain - most likely GI, better with GI cocktail - cont protonix, tums prn - non further # scleroderma # hx esophageal cancer s/p XRT - has a hx of esophageal strictures s/p dilation - she has no real dysphagia or odynophagia currently # severe protein calorie malnutrition - BMI 14 # chronic aspiration # anemia - chronic and stable # suicidal ideation, resolved - she currently has no thoughts of self harm and contracts for safety # dvt prophylaxis: LMWH #Plan: Renetta does indeed have a home to stay in so will be able to return to a safe environment at [place]. Subjective: Renetta is asking for her inhaler for some shortness of breath/ says her fingers are tender. Objective: Vital Signs Temp Pulse Resp BP Pulse Ox 36.5 C 76 18 84/58 L 98 04/11/17 08:00 04/11/17 08:00 04/11/17 08:00 04/11/17 08:00 04/11/17 08:00 Microbiology 04/06/17 10:10 Mycobacterial Smear (SELINA) - Final Finger - Bone 04/06/17 10:10 Mycobacterial Smear (SELINA) - Final Finger - Tissue 04/06/17 10:10 Gram Stain - Final Finger - Bone 04/06/17 10:10 Gram Stain - Final Finger - Tissue 04/06/17 10:10 Gram Stain - Final Finger - Bone 04/06/17 10:10 Gram Stain - Final Finger - Eswab 04/06/17 10:10 Mycobacterial Smear (SELINA) - Final Finger - Bone 04/04/17 20:30 Blood Culture - Final Blood Streptococcus Parasanguinis Streptococcus Salivarius Blood Panel (PCR) - Final Streptococcus Laboratory Results 04/10/17 04:24 04/10/17 04:24 04/10/17 04/11/17 04/12/17 05:59 05:59 05:59 Intake Total 0 240 Balance 0 240 - Physical Exam Constitutional: chronically ill appearing, cachectic Eyes: PERRL Ears, Nose, Mouth, Throat: hearing normal Cardiovascular: regular rate and rhythym Respiratory: no respiratory distress Gastrointestinal: normoactive bowel sounds Skin: warm Neurologic: AAOx3 Psychiatric: interacting appropriately, not anxious ICD10 Worksheet Patient Problems: Problems Problem Status Onset Osteomyelitis of finger of left hand Acute Constipation Acute Pneumonia Acute Scleroderma Acute Sepsis Acute Sinus tachycardia Acute Suicidal ideations Acute
[2017-04-11] MEDS: oxyCODONE IR 5 MG TAB PO PRN ×3 (14:48→22:11)
--- NOTE | 2017-04-11 15:29 | PCMIDPN ---
Assessment/Plan: Assessment/Plan: * Osteomyelitis left 4th digit status post amputation: Operative cultures with growth of MSSA and Citrobacter. Suspect amputation likely curative for osteomyelitis. Await bone pathology for margins. Amputation sites healing well. As long as bone pathology shows clean margins, do not anticipate need for prolonged antibiotic therapy. If margins positive, then would require 6 weeks of IV treatment. * Streptococcal bacteremia: Oropharyngeal streptococci x2 species likely originating from finger ulceration. DEEPALI without evidence of endocarditis. Plan 10 days of ceftriaxone post clearance of bacteremia (end date 04/17/2017). Plan to complete this treatment with peripheral IV. * Chronic right knee ulceration: Plain film of knee negative for osteomyelitis. 04/11/17 15:23 04/11/17 15:25 Subjective: Patient complains of intermittent nausea. Objective: Vital Signs Temp Pulse Resp BP Pulse Ox 36.6 C 84 14 95/71 L 99 04/11/17 12:00 04/11/17 12:00 04/11/17 12:00 04/11/17 12:00 04/11/17 12:00 Microbiology 04/06/17 10:10 Gram Stain - Final Finger - Bone 04/06/17 10:10 Gram Stain - Final Finger - Tissue 04/06/17 10:10 Gram Stain - Final Finger - Bone 04/06/17 10:10 Gram Stain - Final Finger - Eswab 04/06/17 10:10 Mycobacterial Smear (SELINA) - Final Finger - Bone 04/06/17 10:10 Mycobacterial Smear (SELINA) - Final Finger - Tissue 04/06/17 10:10 Mycobacterial Smear (SELINA) - Final Finger - Bone Laboratory Results 04/10/17 04:24 04/10/17 04:24 04/10/17 04/11/17 04/12/17 05:59 05:59 05:59 Intake Total 0 240 Balance 0 240 Ceftriaxone # 5 DEEPALI without evidence of endocarditis bone pathology pending - Physical Exam General Appearance: alert, no apparent distress EENT: No thrush, No conjunctival petechiae Cardiac/Chest: regular rate, rhythm Extremities: inflammation (left hand amputation sites healing well without erythema or drainage) Abdomen: non-tender, No distended ICD10 Worksheet Patient Problems: Problems Problem Status Onset Osteomyelitis of finger of left hand Acute Constipation Acute Pneumonia Acute Scleroderma Acute Sepsis Acute Sinus tachycardia Acute Suicidal ideations Acute
[2017-04-11] MEDS: ONDANSETRON DISINTEGRATING 4 MG TAB PO PRN (19:59)
[2017-04-11] MEDS: MELATONIN 3 MG TAB PO SCH (20:56)
[2017-04-12] MEDS: oxyCODONE IR 5 MG TAB PO PRN ×2 (04:33→08:37)
[2017-04-12] MEDS: SENNOSIDES/DOCUSATE SODIUM TAB PO SCH ×2 (08:38→20:53)
[2017-04-12] MEDS: PANTOPRAZOLE SODIUM 40 MG TAB PO SCH ×2 (08:38→20:53)
[2017-04-12] MEDS: CITALOPRAM 20 MG TAB PO SCH (08:38)
[2017-04-12] MEDS: POLYETHYLENE GLYCOL 3350 17 GM PKT PO PRN (08:39)
[2017-04-12] MEDS: ENOXAPARIN 40 MG/0.4 ML SYR SC SCH (08:39)
[2017-04-12] MEDS: amLODIPine BESYLATE 5 MG TAB PO SCH (08:46)
--- NOTE | 2017-04-12 09:52 | HOSPPROG ---
Hospitalist Progress Note Assessment/Plan: Renetta is a 52-year-old female has a past medical history of scleroderma and frostbite as well as esophageal cancer. She has chronic pain and chronic nonhealing wounds involving her right knee as well as her left 3rd and 4th fingers. # strep bacteremia - polymicrobial - Rocephin -DEEPALI shows no vegetation # chronic right knee ulceration no osteo # acute osteomyelitis 3rd/4th digit (left hand) - MSSA, citrobacter -status post amputation of 3rd finger, 4th finger amputation/revision # hypotension -parameters placed on bp meds -asymptomatic # chest pain - most likely GI, better with GI cocktail - cont protonix, tums prn - non further # scleroderma # hx esophageal cancer s/p XRT - has a hx of esophageal strictures s/p dilation - she has no real dysphagia or odynophagia currently # severe protein calorie malnutrition - BMI 14 # chronic aspiration # anemia - chronic and stable # suicidal ideation, resolved - she currently has no thoughts of self harm and contracts for safety # dvt prophylaxis: LMWH #Plan: Renetta has a home to stay in so will be able to return to a safe environment at [place]. Will order ensure w meals. Subjective: Renetta has no complaints. Objective: Vital Signs Temp Pulse Resp BP Pulse Ox 36.8 C 74 16 107/71 95 04/12/17 08:00 04/12/17 08:00 04/12/17 08:00 04/12/17 08:00 04/12/17 08:00 Microbiology 04/07/17 05:35 Blood Culture - Final Blood 04/07/17 05:00 Blood Culture - Final Blood 04/06/17 10:10 Gram Stain - Final Finger - Bone 04/06/17 10:10 Gram Stain - Final Finger - Tissue 04/06/17 10:10 Gram Stain - Final Finger - Bone 04/06/17 10:10 Gram Stain - Final Finger - Eswab Laboratory Results 04/10/17 04:24 04/10/17 04:24 04/11/17 04/12/17 04/13/17 05:59 05:59 05:59 Intake Total 0 1270 Balance 0 1270 - Physical Exam Constitutional: chronically ill appearing, cachectic Eyes: PERRL Ears, Nose, Mouth, Throat: hearing normal Cardiovascular: regular rate and rhythym Respiratory: no respiratory distress Gastrointestinal: normoactive bowel sounds Skin: warm, other (left hand in dressing) Musculoskeletal: full muscle strength Neurologic: AAOx3 Psychiatric: interacting appropriately ICD10 Worksheet Patient Problems: Problems Problem Status Onset Osteomyelitis of finger of left hand Acute Constipation Acute Pneumonia Acute Scleroderma Acute Sepsis Acute Sinus tachycardia Acute Suicidal ideations Acute
[2017-04-12] MEDS: CALCIUM CARBONATE 500 MG CHEWABLE TAB PO PRN ×2 (10:23→22:05)
[2017-04-12] MEDS: OXYCODONE/APAP 5/325 TAB PO PRN ×3 (13:45→22:05)
--- NOTE | 2017-04-12 17:16 | PCMIDPN ---
Assessment/Plan: Assessment: Osteomyelitis left 4th digit-Citrobacter and MSSA both growing in culture. Patient had amputative surgery on 04/06. Awaiting final path results but this is likely going to be curative. Streptococcal bacteremia likely from left upper extremity source. Currently receiving ceftriaxone daily. Will continue this therapy. Anticipated 2 week course from blood culture clearance. Blood cleared on 04/07/2017. Plan: 1. Continue ceftriaxone. Anticipate stop date on 04/21/2017. 2. Await bone pathology report from left 4th digit. 04/12/17 17:20 04/12/17 17:21 Subjective: Patient reports that she bumped her left hand on her bedside table. Concerned that she may have opened the incision. No strikethrough on bandage. No fevers or chills. Objective: Ceftriaxone 1 g IV daily # 6 Vital Signs Temp Pulse Resp BP Pulse Ox 36.8 C 73 16 117/85 H 97 04/12/17 16:00 04/12/17 16:00 04/12/17 16:00 04/12/17 16:00 04/12/17 16:00 Microbiology 04/06/17 10:10 Gram Stain - Final Finger - Bone 04/06/17 10:10 Gram Stain - Final Finger - Tissue 04/06/17 10:10 Gram Stain - Final Finger - Bone 04/06/17 10:10 Gram Stain - Final Finger - Eswab 04/07/17 05:35 Blood Culture - Final Blood 04/07/17 05:00 Blood Culture - Final Blood Laboratory Results 04/10/17 04:24 04/10/17 04:24 04/11/17 04/12/17 04/13/17 05:59 05:59 05:59 Intake Total 0 1270 300 Balance 0 1270 300 - Physical Exam General Appearance: WD/WN, alert, no apparent distress, thin, non-toxic Respiratory: lungs clear, normal breath sounds, No respiratory distress Cardiac/Chest: regular rate, rhythm, No tachycardia Extremities: non-tender, other (Left hand incisions healing well.), No normal inspection, No inflammation Skin: normal color, warm/dry, No rash Neuro/Psych: alert, normal mood/affect, oriented x 3 ICD10 Worksheet Patient Problems: Problems Problem Status Onset Osteomyelitis of finger of left hand Acute Constipation Acute Pneumonia Acute Scleroderma Acute Sepsis Acute Sinus tachycardia Acute Suicidal ideations Acute
[2017-04-12] MEDS: MELATONIN 3 MG TAB PO SCH (20:53)
[2017-04-13] MEDS: OXYCODONE/APAP 5/325 TAB PO PRN ×4 (04:07→17:33)
[2017-04-13 07:54] VITALS: RESP 20
[2017-04-13] MEDS: CITALOPRAM 20 MG TAB PO SCH (08:16)
[2017-04-13] MEDS: amLODIPine BESYLATE 5 MG TAB PO SCH (08:16)
[2017-04-13] MEDS: ENOXAPARIN 40 MG/0.4 ML SYR SC SCH (08:17)
[2017-04-13] MEDS: SENNOSIDES/DOCUSATE SODIUM TAB PO SCH (08:17)
[2017-04-13] MEDS: PANTOPRAZOLE SODIUM 40 MG TAB PO SCH (08:17)
[2017-04-13] MEDS ORDERED: ALTEPLASE 2 MG VIAL IVP PRN (10:57)
--- NOTE | 2017-04-13 11:02 | PDIAF ---
- Diagnosis Diagnosis: Osteomyelitis left 4th digit Code Status: Full Code - Medication Management Discharge Medications: Medications to Continue on Transfer Albuterol [Proventil Inhaler HFA (*)] 1 - 2 puffs IH Q4H PRN 01/02/16 [Last Taken Unknown] Omeprazole 40 mg PO BID 01/02/16 [Last Taken Unknown] Ibuprofen 100 mg PO Q6H PRN 03/12/17 [Last Taken Unknown] Acetaminophen/ASA/Caffeine [Excedrin Tablet (*)] 1 each PO DAILY PRN 04/04/17 [ Last Taken Unknown] Citalopram Hydrobromide [Celexa] 40 mg PO DAILY 04/04/17 [Last Taken Unknown] amLODIPine BESYLATE [Norvasc 5 mg (*)] 5 mg PO DAILY 04/04/17 [Last Taken ] Acetaminophen [Tylenol 325mg (*)] 650 mg PO Q4HRS PRN #0 tab 04/13/17 [Last Taken Unknown] Calcium Carbonate [Tums 500MG (*)] 500 mg PO TID PRN #0 tab.chew 04/13/17 [Last Taken Unknown] Lactose-Reduced Food [Ensure High Protein] 237 ml PO TID #90 liquid 04/13/17 [ Last Taken Unknown] Polyethylene Glycol 3350 [Miralax 17 gm (*)] 17 gm PO DAILY PRN #0 pkt 04/13/17 [Last Taken Unknown] cefTRIAXone 1 GM/DEXTROSE [Rocephin 1 gm (Premix)] 1 gm IV DAILY #30 bag [Last Taken Unknown] oxyCODONE IR [Oxycodone Ir (*)] 5 - 10 mg PO Q3HRS PRN #10 tab 04/13/17 [Last Taken Unknown] Halfway Antibiotics: Ceftriaxone 1 g IV daily Software Asset Manager Antibiotic Stop Date: 05/18/17 Discharge Medications: Refer to the Discharge Home Medication list for PRN reason. - Orders Services needed: Home Half-Way Care Face to Face: I certify that this patient was under my care and that I had the required [id number] encounter meeting the encounter requirements on the discharge day. My findings support the fact that the patient is homebound as defined in CMS Chapter 7 Medicare Benefits Manual 30.1.1, The condition of the patient is such that there exists a normal inability to leave home and consequently, leaving home would require a considerable and taxing effort. - Labs/Radiology CBC Date: 04/18/17 (Fax to [phone]) CMP Date: 04/18/17 (Fax to [phone]) - Follow Up Care Current Providers and Referrals: NONE *PRIMARY CARE P,. [Primary Care Provider] - As per Instructions Eldon Goode MD [Medical Doctor] - (Patient has appointment with April 23 at 10:00 a.m. at the [facility] for Infectious Diseases)
--- NOTE | 2017-04-13 11:06 | PCMIDPN ---
Assessment/Plan: 1. Osteomyelitis secondary to MSSA and Citrobacter left 4th digit status post amputation April 06: I spoke with Dr. Montoya; unfortunately, margins remain positive. She will require 6 weeks of antibiotics; stop date post surgery will therefore be May 18. Will continue ceftriaxone 1 g daily, which will cover both MSSA and Citrobacter as well the streptococci in her blood. (Please see 2.) The patient will be able to receive antibiotics at home, as well as wound care. Transfer orders done, and the patient will follow up with my colleague, Dr. Goode April 23 at 10:00 a.m. PICC line will be placed today. Also of note, I do not see and ESR or CRP as having been done during this hospital admission. Will order today prior to discharge for baseline data points. 2. Streptococcal bacteremia: Continue ceftriaxone as outlined above. Repeat blood cultures have cleared. Oropharyngeal streptococci in her blood felt secondary to finger ulceration. Nahid negative. Subjective: Patient is anxious to go home. I explained to her that she will need 6 weeks of IV antibiotics given positive margins. She expressed understanding. No diarrhea on the antibiotics. Objective: Ceftriaxone 1 g IV daily day 7 Afebrile Vital Signs Temp Pulse Resp BP Pulse Ox 36.5 C 77 20 101/72 97 04/13/17 07:51 04/13/17 07:51 04/13/17 07:51 04/13/17 07:51 04/13/17 07:51 Microbiology 04/06/17 10:10 Gram Stain - Final Finger - Bone 04/06/17 10:10 Gram Stain - Final Finger - Tissue 04/06/17 10:10 Gram Stain - Final Finger - Bone 04/06/17 10:10 Gram Stain - Final Finger - Eswab 04/07/17 05:35 Blood Culture - Final Blood 04/07/17 05:00 Blood Culture - Final Blood Laboratory Results 04/10/17 04:24 04/10/17 04:24 04/12/17 04/13/17 04/14/17 05:59 05:59 05:59 Intake Total 1270 600 Balance 1270 600 Repeat blood cultures negative - Physical Exam General Appearance: alert, no apparent distress Extremities: other (Left hand is wrapped; I did not unwrap this.) Skin: No rash ICD10 Worksheet Patient Problems: Problems Problem Status Onset Osteomyelitis of finger of left hand Acute Constipation Acute Pneumonia Acute Scleroderma Acute Sepsis Acute Sinus tachycardia Acute Suicidal ideations Acute
[2017-04-13 11:32] LABS: HEMATOCRIT 37.9 % (38.0-47.0)
[2017-04-13 12:51] VITALS: O2SAT 95
--- NOTE | 2017-04-13 13:13 | PDIAF ---
- Diagnosis Diagnosis: Osteomyelitis left 4th digit Code Status: Full Code - Medication Management Discharge Medications: Medications to Continue on Transfer Albuterol [Proventil Inhaler HFA (*)] 1 - 2 puffs IH Q4H PRN 01/02/16 [Last Taken Unknown] Omeprazole 40 mg PO BID 01/02/16 [Last Taken Unknown] Ibuprofen 100 mg PO Q6H PRN 03/12/17 [Last Taken Unknown] Acetaminophen/ASA/Caffeine [Excedrin Tablet (*)] 1 each PO DAILY PRN 04/04/17 [ Last Taken Unknown] Citalopram Hydrobromide [Celexa] 40 mg PO DAILY 04/04/17 [Last Taken Unknown] amLODIPine BESYLATE [Norvasc 5 mg (*)] 5 mg PO DAILY 04/04/17 [Last Taken ] Acetaminophen [Tylenol 325mg (*)] 650 mg PO Q4HRS PRN #0 tab 04/13/17 [Last Taken Unknown] Calcium Carbonate [Tums 500MG (*)] 500 mg PO TID PRN #0 tab.chew 04/13/17 [Last Taken Unknown] Lactose-Reduced Food [Ensure High Protein] 237 ml PO TID #90 liquid 04/13/17 [ Last Taken Unknown] Polyethylene Glycol 3350 [Miralax 17 gm (*)] 17 gm PO DAILY PRN #0 pkt 04/13/17 [Last Taken Unknown] cefTRIAXone 1 GM/DEXTROSE [Rocephin 1 gm (Premix)] 1 gm IV DAILY #30 bag [Last Taken Unknown] oxyCODONE IR [Oxycodone Ir (*)] 5 - 10 mg PO Q3HRS PRN #10 tab 04/13/17 [Last Taken Unknown] Shelter Antibiotics: Ceftriaxone 1 g IV daily Joint Sealer Antibiotic Stop Date: 05/18/17 Discharge Medications: Refer to the Discharge Home Medication list for PRN reason. - Orders Services needed: Home Mcfp Care Face to Face: I certify that this patient was under my care and that I had the required [id number] encounter meeting the encounter requirements on the discharge day. My findings support the fact that the patient is homebound as defined in CMS Chapter 7 Medicare Benefits Manual 30.1.1, The condition of the patient is such that there exists a normal inability to leave home and consequently, leaving home would require a considerable and taxing effort. - Labs/Radiology CBC Date: 04/18/17 (Fax to ) CMP Date: 04/18/17 (Fax to [phone]) - Follow Up Care Current Providers and Referrals: NONE *PRIMARY CARE P,. [Primary Care Provider] - As per Instructions Eldon Goode MD [Medical Doctor] - (Patient has appointment with April 23 at 10:00 a.m. at the [facility] for Infectious Diseases)
[2017-04-13 16:26] VITALS: BP 113/81; PULSE 84; TEMP 98.2
--- NOTE | 2017-04-13 17:13 | PDIAF ---
- Diagnosis Diagnosis: Osteomyelitis left 4th digit Code Status: Full Code - Medication Management Discharge Medications: Medications to Continue on Transfer Albuterol [Proventil Inhaler HFA (*)] 1 - 2 puffs IH Q4H PRN 01/02/16 [Last Taken Unknown] Omeprazole 40 mg PO BID 01/02/16 [Last Taken Unknown] Ibuprofen 100 mg PO Q6H PRN 03/12/17 [Last Taken Unknown] Acetaminophen/ASA/Caffeine [Excedrin Tablet (*)] 1 each PO DAILY PRN 04/04/17 [ Last Taken Unknown] Citalopram Hydrobromide [Celexa] 40 mg PO DAILY 04/04/17 [Last Taken Unknown] amLODIPine BESYLATE [Norvasc 5 mg (*)] 5 mg PO DAILY 04/04/17 [Last Taken ] Acetaminophen [Tylenol 325mg (*)] 650 mg PO Q4HRS PRN #0 tab 04/13/17 [Last Taken Unknown] Calcium Carbonate [Tums 500MG (*)] 500 mg PO TID PRN #0 tab.chew 04/13/17 [Last Taken Unknown] Lactose-Reduced Food [Ensure High Protein] 237 ml PO TID #90 liquid 04/13/17 [ Last Taken Unknown] Polyethylene Glycol 3350 [Miralax 17 gm (*)] 17 gm PO DAILY PRN #0 pkt 04/13/17 [Last Taken Unknown] cefTRIAXone 1 GM/DEXTROSE [Rocephin 1 gm (Premix)] 1 gm IV DAILY #30 bag [Last Taken Unknown] oxyCODONE IR [Oxycodone Ir (*)] 5 - 10 mg PO Q3HRS PRN #10 tab 04/13/17 [Last Taken Unknown] Longterm Antibiotics: Ceftriaxone 1 g IV daily [employer] Antibiotic Stop Date: 05/18/17 Discharge Medications: Refer to the Discharge Home Medication list for PRN reason. - Orders Services needed: Home Care, Registered Nurse Home Care Face to Face: I certify that this patient was under my care and that I had the required [id number] encounter meeting the encounter requirements on the discharge day. My findings support the fact that the patient is homebound as defined in CMS Chapter 7 Medicare Benefits Manual 30.1.1, The condition of the patient is such that there exists a normal inability to leave home and consequently, leaving home would require a considerable and taxing effort. - Labs/Radiology CBC Date: 04/18/17 (Fax to [phone]) CMP Date: 04/18/17 (Fax to [phone]) - Follow Up Care Current Providers and Referrals: Don Hull MD [Medical Doctor] - NONE *PRIMARY CARE P,. [Primary Care Provider] - As per Instructions Eldon Goode MD [Medical Doctor] - (Patient has appointment with April 23 at 10:00 a.m. at the [facility] for [facility])
--- NOTE | 2017-04-13 23:38 | GDS ---
[f rep st] DISCHARGE SUMMARY DISCHARGE DIAGNOSES: 1. Streptococcus bacteremia. 2. Acute osteomyelitis of the 3rd and 4th digits. 3. Hypotension. 4. Scleroderma. 5. History of esophageal cancer. 6. Severe protein-calorie malnutrition. 7. Chronic aspiration. 8. Anemia. 9. Suicidal ideation. CONSULTATIONS: 1. Dr. Hull. 2. Infectious Disease. PHYSICAL EXAMINATION: GENERAL: The patient is alert. VITAL SIGNS: Afebrile at 36.9, pulse is 77, respiratory rate is 20, blood pressure is 103/81, she is saturating 95% on room air. I have seen a nd evaluated the patient on the day of discharge. HOSPITAL COURSE: Patient is a 52-year-old female, admitted the hospital secondary to finger pain. She was evaluated and diagnosed with: 1. Strep bacteremia. During this hospitalization, she was treated with IV antibiotic therapy and a n infectious disease consult. Repeat blood cultures are negative. 2. Acute osteomyelitis of the 3rd and 4th digits. During this hospital course, the patient had amp utation of the 3rd finger, as well as revision of the 4th finger. She will continue to follow with Dr. Hull in the outpatient setting and continue on 6 weeks of IV antibiotic therapy, as patholog y demonstrates that her margins were not clean. 3. Hypotension. This is asymptomatic and resolved. 4. History of scleroderma. She is at her baseline. 5. History of esophageal cancer. This causes chronic aspiration for the patient, but is doing well at this time. 6. Severe protein-calorie malnutrition. It has been ordered that the patient receive Ensure at [facility], and Case Management has been working with her to increase her dietary intake. 7. Anemia. This is chronic and stable. 8. Suicidal ideation. This has resolved with thorough evaluation during this hospitalization. 9. Disposition. The patient will be discharged home with home health care. She will continue IV an tibiotic therapy in the outpatient setting for a total of 6 weeks. Follow up will be with Dr. Zita zhu, as well as Dr. Goode of Infectious Disease as well, and her primary care physician. There are no further pending studies. DISCHARGE MEDICATIONS: Please refer to EMR form. She will continue on ceftriaxone, as well as her previously prescribed home medications. I spent greater than 35 minutes in the care, coordination, and management of this patient's disposit ion. /[id number]/MODL
== END 2017-04-13 17:42 | disposition home health service (06) | DRG 513 ==
LOC: EDUNIT# → OBSVTOIN 20:19 → F3E 21:35
PROVIDERS: ADMIT Internal Medicine; ATTEND Internal Medicine
PROC: 0X6R0Z2 Detachment at Left Middle Finger, Mid, Open Approach (ICD-10-PCS; principal; 2017-04-06 09:30)
DX: M86.142 Other acute osteomyelitis, left hand (principal); E43 Unspecified severe protein-calorie malnutrition; R45.851 Suicidal ideations; Z68.1 Body mass index [BMI] 19.9 or less, adult; B95.5 Unspecified streptococcus as the cause of diseases classified elsewhere; L98.499 Non-pressure chronic ulcer of skin of other sites with unspecified severity; I95.9 Hypotension, unspecified; M34.9 Systemic sclerosis, unspecified; D64.9 Anemia, unspecified; G89.29 Other chronic pain; J44.9 Chronic obstructive pulmonary disease, unspecified; Z85.01 Personal history of malignant neoplasm of esophagus; Z89.022 Acquired absence of left finger(s)
CPT/HCPCS: 96365; 97161-GP; 97166-GO; 97168-GO; 97535-GO; A9585; C1751; G8978-GP-CI; G8979-GP-CI; G8980-GP-CI; G8987-GO-CI; G8988-GO-CH; G8988-GO-CI; G8989-GO-CI; J0690; J0696; J1170; J1650; J2250; J2370; J2405; J2704; J3010

== ENCOUNTER 2017-04-17 21:18 | Inpatient (IN) | payer OTHER, MEDICAID ==
--- NOTE | 2017-04-17 22:24 | EDPHY ---
H & P Stated Complaint: Finger Pain Time Seen by Provider: 04/17/17 22:15 HPI/ROS: Chief Complaint: Left hand pain, fall HPI: 52-year-old woman recently discharged from the hospital several days ago after an amputation of her left finger secondary to acute osteomyelitis. Patient sent home on intravenous antibiotics. Patient states that sometime last night she remembers being in the bathroom and falling. She does remember later laying on the couch and crying. Patient states that she was awoke in this evening by welfare check by police. Patient initially states that she has had been drinking alcohol then denied it. She states she has taken all the oxycodone that she was sent home with. Denies any headache. Is complaining of some face pain. No nausea or vomiting. No neck pain or numbness. ROS: 10 point Review of Systems is negative except as noted in the HPI. Past medical history: Scleroderma, frostbite Social History: Positive smoking, occasional alcohol, denies other drug use Family History: non-contributory Physical Exam: Gen: Awake, Alert, No Distress HEENT: Nose: no rhinorrhea Eyes: PERRLA, EOMI Mouth: Dry mucous membranes Neck: Supple, no JVD Chest: nontender, lungs clear to auscultation Heart: S1, S2 normal, no murmur Abd: Soft, non-tender, no guarding Back: no CVA tenderness, no midline tenderness Ext: no edema, left hand is dressed. She has noted old amputations right hand, left hand is in a dressing. Wound is intact. Skin: no rash Neuro: CN II-XII intact, Sensation grossly intact, Strength 5/5 in bilateral upper and lower extremities - Personal History LMP (Females 10-55): Post Menopausal Current Tetanus Diphtheria and Acellular Pertussis (TDAP): Yes Tetanus Vaccine Date: < 10 years - Medical/Surgical History Hx Asthma: Yes Hx Chronic Respiratory Disease: Yes Hx Diabetes: No Hx Cardiac Disease: No Hx Renal Disease: No Hx Cirrhosis: No Hx Alcoholism: Yes Hx HIV/AIDS: No Hx Splenectomy or Spleen Trauma: No Other PMH: ASTHMA,SCLERODERMA,GERD,CA THROAT,NELI,T&A, emphysema, rheumatoid arth. HX RT ELBOW OSTEOMYELITIS W/SURG, SURG RT THUMB. HEPATITIS C, frostbite, numerous finger amputations - Social History Smoking Status: Current every day smoker Constitutional: Initial Vital Signs Temperature (C) 36.6 C 04/17/17 21:26 Heart Rate 80 04/17/17 21:26 Respiratory Rate 18 04/17/17 21:26 Blood Pressure 103/73 04/17/17 21:26 O2 Sat (%) 100 04/17/17 21:26 O2 Delivery Mode Room Air Allergies/Adverse Reactions: No Known Allergies Allergy (Verified 03/12/17 21:16) Home Medications: Medication Instructions Recorded Albuterol [Proventil Inhaler HFA 1 - 2 puffs IH Q4H PRN 01/02/16 (*)] Omeprazole 40 mg PO BID 01/02/16 Ibuprofen 100 mg PO Q6H PRN 03/12/17 Acetaminophen/ASA/Caffeine 1 each PO DAILY PRN 04/04/17 [Excedrin Tablet (*)] Citalopram Hydrobromide [Celexa] 40 mg PO DAILY 04/04/17 amLODIPine BESYLATE [Norvasc 5 mg 5 mg PO DAILY 04/04/17 (*)] Acetaminophen [Tylenol 325mg (*)] 650 mg PO Q4HRS PRN #0 tab 04/13/17 Calcium Carbonate [Tums 500MG (*)] 500 mg PO TID PRN #0 tab.chew 04/13/17 Lactose-Reduced Food [Ensure High 237 ml PO TID #90 liquid 04/13/17 Protein] Polyethylene Glycol 3350 [Miralax 17 gm PO DAILY PRN #0 pkt 04/13/17 17 gm (*)] cefTRIAXone 1 GM/DEXTROSE 1 gm IV DAILY #30 bag 04/13/17 [Rocephin 1 gm (Premix)] oxyCODONE IR [Oxycodone Ir (*)] 5 - 10 mg PO Q3HRS PRN #10 tab 04/13/17 Medical Decision Making ED Course/Re-evaluation: Charge is Britni has discussed the case with home care. There is stated that they were notified by the patient on Sunday that she is going out of town and had to therefore discontinue her for service. They became concerned and called for a welfare check tonight. Patient has not gotten her antibiotics for several days. She is clearly gravely disabled unable to care for herself. The patient will need to be admitted for continued IV antibiotics and case management involvement. I suspect she will required a long term facility to continue getting her antibiotics that she is unable to care for herself at home. Case discussed with Dr. Burt Hess, hospitalist. He will admit to his service for further care. - Data Points Laboratory Results: Laboratory Results 04/17/17 22:45 04/17/17 22:45 04/17/17 04/17/17 22:45 22:45 WBC 4.42 10^3/uL 10^3/uL (3.80-9.50) RBC 4.27 10^6/uL 10^6/uL (4.18-5.33) Hgb 10.5 g/dL L g/dL (12.6-16.3) Hct 33.3 % L % (38.0-47.0) MCV 78.0 fL L fL (81.5-99.8) MCH 24.6 pg L pg (27.9-34.1) MCHC 31.5 g/dL L g/dL (32.4-36.7) RDW 20.4 % H % (11.5-15.2) Plt Count 448 10^3/uL H 10^3/uL (150-400) MPV 8.6 fL L fL (8.7-11.7) Neut % (Auto) 51.2 % % (39.3-74.2) Lymph % (Auto) 37.1 % % (15.0-45.0) Collin % (Auto) 8.1 % % (4.5-13.0) Eos % (Auto) 2.0 % % (0.6-7.6) Baso % (Auto) 1.4 % % (0.3-1.7) Nucleat RBC Rel Count 0.0 % % (0.0-0.2) Absolute Neuts (auto) 2.26 10^3/uL 10^3/uL (1.70-6.50) Absolute Lymphs (auto) 1.64 10^3/uL 10^3/uL (1.00-3.00) Absolute Monos (auto) 0.36 10^3/uL 10^3/uL (0.30-0.80) Absolute Eos (auto) 0.09 10^3/uL 10^3/uL (0.03-0.40) Absolute Basos (auto) 0.06 10^3/uL 10^3/uL (0.02-0.10) Absolute Nucleated RBC 0.00 10^3/uL 10^3/uL (0-0.01) Immature Gran % 0.2 % % (0.0-1.1) Immature Gran # 0.01 10^3/uL 10^3/uL (0.00-0.10) Platelet Estimate ADEQUATE (ADEQ) Polychromasia 1+ H Hypochromasia 1+ H Microcytic Cells 1+ H Oval Macrocytes 1+ H Sodium 140 mEq/L mEq/L (134-144) Potassium 3.3 mEq/L L mEq/L (3.5-5.2) Chloride 109 mEq/L mEq/L (97-110) Carbon Dioxide 21 mEq/l L mEq/l (22-31) Anion Gap 10 mEq/L mEq/L (8-16) BUN 17 mg/dL mg/dL (7-23) Creatinine 0.5 mg/dL L mg/dL (0.6-1.0) Estimated GFR > 60 Glucose 76 mg/dL mg/dL (70-100) Calcium 9.3 mg/dL mg/dL (8.5-10.4) Medications Given: Discontinued Medications Heparin Sodium (Porcine) (Heparin Lock Flush) 500 unit IVP EDNOW ONE Stop: 04/18/17 00:10 Last Admin: 04/18/17 00:17 Dose: 500 unit Ondansetron HCl (Zofran) 4 mg IVP EDNOW ONE Stop: 04/17/17 23:31 Last Admin: 04/17/17 23:37 Dose: 4 mg Oxycodone/Acetaminophen (Percocet 5/325) 1 tab PO EDNOW ONE Stop: 04/18/17 00:04 Last Admin: 04/18/17 00:17 Dose: 1 tab Departure - Departure Disposition: [facility] Acute Clinical Impression: Osteomyelitis of finger of left hand Condition: Fair Referrals: Patient,NotPresent [Unknown] - As per Instructions
[2017-04-17 23:01] LABS: % IMMATURE GRANULYOCYTES 0.2 % (0.0-1.1); ABSOLUTE IMMATURE GRANULOCYTES 0.01 10^3/uL (0.00-0.10); ADD DIFF? NO; ADD MORPH? YES; ADD SCAN? NO; ATYPICAL LYMPHOCYTE FLAG 30 (0-99); FRAGMENT RBC FLAG 20 (0-99); HEMATOCRIT 33.3 % (38.0-47.0); HEMOGLOBIN 10.5 g/dL (12.6-16.3); LEFT SHIFT FLG 0 (0-99); LIPEMIA HEMOLYSIS FLAG 80 (0-99); MEAN CELL HEMOGLOBIN 24.6 pg (27.9-34.1); MEAN CELL HEMOGLOBIN CONCENTR. 31.5 g/dL (32.4-36.7); MEAN PLATELET VOLUME 8.6 fL (8.7-11.7); PLATELET CLUMPS FLAG 0 (0-99); PLATELET COUNT 448 10^3/uL (150-400); RED BLOOD CELL COUNT 4.27 10^6/uL (4.18-5.33)
[2017-04-17 23:07] LABS: ANION GAP 10 mEq/L (8-16); CALCIUM 9.3 mg/dL (8.5-10.4); CARBON DIOXIDE 21 mEq/l (22-31); CHLORIDE 109 mEq/L (97-110); CREATININE 0.5 mg/dL (0.6-1.0); GLOMERULAR FILTRATION RATE > 60; GLUCOSE 76 mg/dL (70-100); POTASSIUM 3.3 mEq/L (3.5-5.2); SODIUM 140 mEq/L (134-144)
[2017-04-17] MEDS ORDERED: ONDANSETRON 4 MG/2 ML VIAL IVP ONE (23:30)
[2017-04-17 23:31] LABS: RED CELL DISTRIBUTION WIDTH 20.4 % (11.5-15.2)
[2017-04-17 23:39] LABS: HYPOCHROMIA 1+; MACROCYTES 1+; MICROCYTES 1+; POLYCHROMASIA 1+
[2017-04-17 23:40] LABS: PLATELET ESTIMATE ADEQUATE (ADEQ)
[2017-04-18] MEDS ORDERED: OXYCODONE/APAP 5/325 TAB PO ONE (00:03)
[2017-04-18] MEDS ORDERED: ONDANSETRON DISINTEGRATING 4 MG TAB PO PRN (02:12)
[2017-04-18] MEDS ORDERED: ACETAMINOPHEN 325 MG TAB PO PRN ×2 (02:12→13:55)
[2017-04-18] MEDS ORDERED: ONDANSETRON 4 MG/2 ML VIAL IVP PRN (02:12)
[2017-04-18] MEDS ORDERED: PANTOPRAZOLE SODIUM 40 MG TAB PO ONE ×2 (02:37)
[2017-04-18] MEDS: oxyCODONE IR 5 MG TAB PO PRN ×6 (03:09→20:57)
--- NOTE | 2017-04-18 03:20 | GHP ---
[f rep ] HISTORY AND PHYSICAL DATE OF ADMISSION: 04/18/2017 HISTORY OF PRESENT ILLNESS: The patient is a pleasant 52-year-old female with a history of sclerode rma and osteomyelitis, who was admitted from April 04 through the with osteomyelitis of her fi ngers and Streptococcus bacteremia. She was discharged home on ceftriaxone. From Sunday to , she did not receive antibiotics. The story she told the ER was that she went away and she jacques d them to not come. She told me she is not sure why they did not come. They came and she was just sleeping, but either way, it sounds like police officers did a welfare check on her today, and they found her at home. She has been chilled. No fevers. She has pain in her hand. It feels like some thing might be broken. She states she has had some falls. She also notes she has had some pain. S he was lying on the couch and crying. She may or may not be drinking alcohol. Says she has been st able. The patient is a bit of a rambling historian, but it sounds like she was discharged on the , and has not received antibiotics in 4 days, and re-presents following a welfare check. REVIEW OF SYSTEMS: Complete 10-point review of systems conducted and negative, except as noted in t he HPI. PAST MEDICAL HISTORY: 1. Scleroderma. 2. Osteomyelitis of the left 3rd and 4th fingers, status post amputation. 3. Frostbite in the with residual chronic pain. 4. COPD. 5. GERD. 6. Esophageal cancer, status post radiation. 7. Protein-calorie malnutrition. 8. Suspected chronic aspiration. 9. She also had a cholecystectomy. FAMILY HISTORY: Notable for colon cancer. SOCIAL HISTORY: She has a house in [facility] on [address]. She has a history of homel essness and prior incarcerations, as well as difficult social issues with her son, leaving her to [facility] in [place] in the past. She has a history of tobacco, alcohol, and marijuana use, alt eren she says her alcohol use is in remission. ALLERGIES: No known drug allergies. HOME MEDICATIONS: Ceftriaxone, Excedrin, acetaminophen, albuterol, amlodipine, calcium carbonate, c italopram, ibuprofen, Ensure, omeprazole, oxycodone, and MiraLAX. PHYSICAL EXAM: PRESENTING VITALS: Temperature 36.6, blood pressure 103/73, pulse 80, breathing 18 times a minute, 100% on room air. GENERAL: Skin thin, no acute distress. Sclerae anicteric. Orop harynx clear. Mucous membranes are moist. Neck is supple without lymphadenopathy or JVD. LUNGS: Clear to auscultation bilaterally. HEART: S1, S2. Not tachycardic. ABDOMEN: Soft, nontender, no ndistended. LOWER EXTREMITIES: Without edema. Left upper extremity has a bandage on hand. Her PI CC line site is clean, dry, and intact. We did not take down her bandage. Neurologic exam is nonfo es. SKIN: Without rash. I have discussed the case with Dr. Luis Grijalva. ASSESSMENT: A 52-year-old female with osteomyelitis and interruption in her antibiotic therapy. 1. Bacteremia. She had a Streptococcus bacteremia. I have repeated blood cultures. Ceftriaxone h as been re-initiated. Notably, her Gram stains have all shown Staphylococcus aureus and Citrobacter from her fingers, but her blood cultures definitely grew streptococcus. Notably, she had a negativ e endocarditis workup including DEEPALI and cardiac MRI. 2. Osteomyelitis of the fingers of the left hand. These have been amputated. She has ongoing pain . She has no lymphangitic streaking or evidence of cellulitis. I will check a hand film. 3. History of scleroderma. She is not on any specific immune modulator agents. We will follow. 4. Pain. P.r.n. oxycodone as well as Tylenol. 5. Prophylaxis. Pharmacologic prophylaxis as indicated. DISPOSITION: Patient would maybe do better in a SNF, hard time following requirements of outpatient IV antibiotics. Disposition is inpatient status. /[id number]/MODL
[2017-04-18] MEDS: ENOXAPARIN 30 MG/0.3 ML SYR SC SCH ×2 (09:35→09:55)
[2017-04-18 09:45] LABS: % IMMATURE GRANULYOCYTES 0.4 % (0.0-1.1); ABSOLUTE IMMATURE GRANULOCYTES 0.02 10^3/uL (0.00-0.10); ADD DIFF? NO; ADD MORPH? YES; ADD SCAN? NO; ATYPICAL LYMPHOCYTE FLAG 10 (0-99); FRAGMENT RBC FLAG 20 (0-99); HEMATOCRIT 34.2 % (38.0-47.0); HEMOGLOBIN 10.7 g/dL (12.6-16.3); LEFT SHIFT FLG 0 (0-99); LIPEMIA HEMOLYSIS FLAG 80 (0-99); MEAN CELL HEMOGLOBIN 24.7 pg (27.9-34.1); MEAN CELL HEMOGLOBIN CONCENTR. 31.3 g/dL (32.4-36.7); MEAN CELL VOLUME 78.8 fL (81.5-99.8); MEAN PLATELET VOLUME 8.8 fL (8.7-11.7); PLATELET CLUMPS FLAG 0 (0-99); PLATELET COUNT 460 10^3/uL (150-400); RED BLOOD CELL COUNT 4.34 10^6/uL (4.18-5.33)
[2017-04-18 09:50] LABS: RED CELL DISTRIBUTION WIDTH 20.2 % (11.5-15.2)
[2017-04-18 10:03] LABS: ANION GAP 12 mEq/L (8-16); CALCIUM 8.8 mg/dL (8.5-10.4); CARBON DIOXIDE 19 mEq/l (22-31); CHLORIDE 110 mEq/L (97-110); CREATININE 0.5 mg/dL (0.6-1.0); GLOMERULAR FILTRATION RATE > 60; GLUCOSE 78 mg/dL (70-100); SODIUM 141 mEq/L (134-144)
[2017-04-18 10:22] LABS: ELLIPTOCYTES 1+; HYPOCHROMIA 1+; MICROCYTES 1+; PLATELET ESTIMATE INCREASED (ADEQ); POLYCHROMASIA 1+
[2017-04-18] MEDS ORDERED: POLYETHYLENE GLYCOL 3350 17 GM PKT PO PRN (13:55)
[2017-04-18] MEDS ORDERED: ACETAMINOPHEN/ASA/CAFFEINE 1 EACH TAB PO PRN (13:55)
[2017-04-18] MEDS ORDERED: NAPROXEN SODIUM 220 MG TAB PO PRN (13:55)
[2017-04-18] MEDS ORDERED: ALBUTEROL 60 PUFFS/8 GM MDI IH PRN (13:55)
--- NOTE | 2017-04-18 14:36 | HOSPPROG ---
Hospitalist Progress Note Assessment/Plan: 52 y/o female new to my care today recently dc'ed from [facility] with Strep bacteremia presenting with #strep bacteremia with noncompliance with outpt abx -pt is agreeable to snf #osteomyelitis #h.o scleroderma #chronic pain plan -I discussed the case with Dr. Chaves from [facility] who is recommending ctx through Subjective: no new complaints. doesnt recall why she didn't take her IV abx. she remembers taking to trazodones Objective: Vital Signs Temp Pulse Resp BP Pulse Ox 36.6 C 79 18 85/60 L 95 04/18/17 08:49 04/18/17 08:49 04/18/17 08:49 04/18/17 08:49 04/18/17 08:49 Laboratory Results 04/18/17 09:37 04/18/17 09:37 04/17/17 04/18/17 04/19/17 05:59 05:59 05:59 Intake Total 200 Balance 200 gen nad cv rrr pulm clear abd soft +bs ext no edema - Physical Exam Ears, Nose, Mouth, Throat: moist mucous membranes, hearing normal, ears appear normal, no oral mucosal ulcers Cardiovascular: regular rate and rhythym, no murmur, rub, or gallop Respiratory: no respiratory distress, no rales or rhonchi, clear to auscultation Gastrointestinal: normoactive bowel sounds, soft, non-tender abdomen, no palpable masses Genitourinary: no bladder fullness, no bladder tenderness, no renal bruits Skin: no rashes or abrasions, no fluctuance, no induration Musculoskeletal: full muscle strength, no muscle tenderness, normal joint ROM Neurologic: AAOx3, sensation intact bilaterally Psychiatric: interacting appropriately, not anxious, not encephalopathic, thought process linear Lymph, Heme, Immunologic: no cervical LAD, no supraclavicular LAD ICD10 Worksheet Patient Problems: Problems Problem Status Onset Osteomyelitis of finger of left hand Acute Constipation Acute Pneumonia Acute Scleroderma Acute Sepsis Acute Sinus tachycardia Acute Suicidal ideations Acute
[2017-04-18] MEDS: PANTOPRAZOLE SODIUM 40 MG TAB PO SCH (19:51)
[2017-04-18] MEDS: traZODone 100 MG TAB PO SCH (20:58)
[2017-04-18] MEDS ORDERED: LACTOSE REDUCED FOOD PO SCH (21:00)
[2017-04-19] MEDS: oxyCODONE IR 5 MG TAB PO PRN ×4 (05:32→21:29)
[2017-04-19] MEDS ORDERED: NON-FORMULARY NEW DRUG (Citalopram Hydrobromide [Celexa] 40 MG) PO SCH (09:00)
[2017-04-19] MEDS: CITALOPRAM 20 MG TAB PO SCH (10:02)
[2017-04-19] MEDS: PANTOPRAZOLE SODIUM 40 MG TAB PO SCH ×2 (10:02→21:30)
[2017-04-19] MEDS: amLODIPine BESYLATE 5 MG TAB PO SCH (10:04)
[2017-04-19] MEDS: ENOXAPARIN 30 MG/0.3 ML SYR SC SCH (10:07)
--- NOTE | 2017-04-19 13:30 | HOSPPROG ---
Hospitalist Progress Note Assessment/Plan: 52 y/o female new to my care today recently dc'ed from [facility] with Strep bacteremia presenting with #strep bacteremia with noncompliance with outpt abx -pt is agreeable to snf #osteomyelitis #h.o scleroderma #chronic pain with chronic opioid dependency #Severe protein calorie malnutrition plan - continue Rocephin through 05/18 - Renetta appears to weak and unsafe to return home. Social Work is currently exploring detention facilities upon discharge Subjective: denies fevers or chills. a neurologist that she needs help at home and thinks rehab would be beneficial Objective: Vital Signs Temp Pulse Resp BP Pulse Ox 37.0 C 79 18 80/55 L 95 04/19/17 08:49 04/19/17 08:49 04/19/17 08:49 04/19/17 08:49 04/19/17 08:49 Laboratory Results 04/18/17 09:37 04/18/17 09:37 04/18/17 04/19/17 04/20/17 05:59 05:59 05:59 Intake Total 200 1600 Balance 200 1600 - Physical Exam Constitutional: chronically ill appearing Cardiovascular: regular rate and rhythym, no murmur, rub, or gallop Respiratory: no respiratory distress, no rales or rhonchi, clear to auscultation Gastrointestinal: normoactive bowel sounds, soft, non-tender abdomen, no palpable masses ICD10 Worksheet Patient Problems: Problems Problem Status Onset Pneumonia Acute Scleroderma Acute Sepsis Acute Sinus tachycardia Acute Suicidal ideations Acute Constipation Acute Osteomyelitis of finger of left hand Acute
[2017-04-19 16:40] VITALS: RESP 16
[2017-04-19] MEDS: traZODone 100 MG TAB PO SCH (21:29)
[2017-04-20] MEDS: oxyCODONE IR 5 MG TAB PO PRN ×3 (02:51→13:10)
[2017-04-20] MEDS: amLODIPine BESYLATE 5 MG TAB PO SCH (09:30)
[2017-04-20] MEDS: ENOXAPARIN 30 MG/0.3 ML SYR SC SCH (09:33)
[2017-04-20] MEDS: CITALOPRAM 20 MG TAB PO SCH (09:33)
--- NOTE | 2017-04-20 11:37 | PDIAF ---
- Diagnosis Diagnosis: bacteremia Code Status: Full Code - Medication Management Discharge Medications: Medications to Continue on Transfer Albuterol [Proventil Inhaler HFA (*)] 1 - 2 puffs IH Q4H PRN 01/02/16 [Last Taken 04/15/17] Omeprazole 40 mg PO BID 01/02/16 [Last Taken 04/13/17] Acetaminophen/ASA/Caffeine [Excedrin Tablet (*)] 1 each PO DAILY PRN 04/04/17 [ Last Taken 04/16/17] Citalopram Hydrobromide [Celexa] 40 mg PO DAILY 04/04/17 [Last Taken Unknown] amLODIPine BESYLATE [Norvasc 5 mg (*)] 5 mg PO DAILY 04/04/17 [Last Taken ] Acetaminophen [Tylenol 325mg (*)] 650 mg PO Q4HRS PRN #0 tab 04/13/17 [Last Taken Unknown] Polyethylene Glycol 3350 [Miralax 17 gm (*)] 17 gm PO DAILY PRN #0 pkt 04/13/17 [Last Taken Unknown] Ibuprofen [Motrin (*)] 100 mg PO Q6H PRN 04/18/17 [Last Taken Unknown] Lactose-Reduced Food [Ensure High Protein] 237 ml PO BID 04/18/17 [Last Taken ] Naproxen Sodium [Aleve 220 MG (*)] 220 mg PO DAILY PRN 04/18/17 [Last Taken Unknown] traZODone [traZODONE 100MG (*)] 100 mg PO HS 04/18/17 [Last Taken 04/16/17] cefTRIAXone 1 GM/DEXTROSE [Rocephin 1 gm (Premix)] 1 gm IV DAILY #30 bag [Last Taken 04/14/17] oxyCODONE IR [Oxycodone Ir (*)] 5 - 10 mg PO Q3HRS PRN #0 tab 04/20/17 [Last Taken Unknown] [employer] Antibiotics: Rocephin 1gm IV daily [facility] Antibiotic Stop Date: 05/18/17 Discharge Medications: Refer to the Discharge Home Medication list for PRN reason. - Orders Services needed: Registered Nurse Diet Recommendation: no restrictions on diet Diet Texture: Regular Texture Diet, Thin Liquids Additional: followup with Dr. Hull for suture removal and with [facility] for ID as scheduled - Follow Up Care Current Providers and Referrals: Patient,NotPresent [Unknown] - As per Instructions
[2017-04-20 13:35] VITALS: BP 106/77; PULSE 75; TEMP 98.1; O2SAT 94
--- NOTE | 2017-04-20 13:39 | GDS ---
[f rep st] DISCHARGE SUMMARY DISCHARGE DIAGNOSIS: 1. Strep bacteremia with noncompliance with outpatient IV antibiotics. 2. Osteomyelitis. 3. History of scleroderma. 4. Chronic pain with chronic opioid dependency. 5. Severe protein-calorie malnutrition. HOSPITAL COURSE BY PROBLEM: Strep bacteremia: The patient was readmitted to the hospital after she failed to receive her IV antibiotics for unknown reasons. She was readmitted where she was re-init iated on ceftriaxone, which she should continue through 05/01/2017. Prior to her discharge, I discu ssed the case with her hand surgeon, Dr. Don Hull, who would like to keep her sutures in place for 1 more week. She should follow up with Dr. Hull in 1 week for suture removal. She should a lso follow up with Infectious Disease as directed. PHYSICAL EXAM ON DAY OF DISCHARGE: VITAL SIGNS: Blood pressure 91/55, pulse 67, respiratory rate 1 6, O2 saturation 96% on room air. Temperature afebrile. GENERAL: No acute distress heart S1, S2. LUNGS: Clear. ABDOMEN: Soft. DISCHARGE MEDICATIONS: Please refer to discharge medication reconciliation in [facility]. DISCHARGE INSTRUCTIONS: Once again, the patient should follow up with Dr. Hull in 1 week for espino ture removal. She should follow up with Infectious Disease as directed. /[id number]/MODL
[2017-04-20] MEDS: PANTOPRAZOLE SODIUM 40 MG TAB PO SCH (14:15)
== END 2017-04-20 14:16 | DRG 539 ==
LOC: EDUNIT# → OBSVTOIN 04-18 00:28 → F1N 04-18 05:12
PROVIDERS: ADMIT Internal Medicine; ATTEND Internal Medicine
DX: M86.9 Osteomyelitis, unspecified (principal); W19.XXXA Unspecified fall, initial encounter; Y92.002 Bathroom of unspecified non-institutional (private) residence as the place of occurrence of the external cause; Z91.14 Patient's other noncompliance with medication regimen; E43 Unspecified severe protein-calorie malnutrition; Z89.022 Acquired absence of left finger(s); G89.29 Other chronic pain; F11.20 Opioid dependence, uncomplicated; K21.9 Gastro-esophageal reflux disease without esophagitis; M06.9 Rheumatoid arthritis, unspecified; B19.20 Unspecified viral hepatitis C without hepatic coma; M34.9 Systemic sclerosis, unspecified; F17.210 Nicotine dependence, cigarettes, uncomplicated; Z85.01 Personal history of malignant neoplasm of esophagus; Z92.3 Personal history of irradiation
CPT/HCPCS: 92610-GN; 96374; 97116-GP; 97161-GP; 97165-GO; 97535-GO; G8978-GP-CI; G8979-GP-CI; G8987-GO-CI; G8988-GO-CI; G8996-GN-CI; G8997-GN-CI; G8998-GN-CI; J0696; J1642; J1650; J2405

== ENCOUNTER 2018-02-14 10:43 | Inpatient (IN) | payer MEDICAID, OTHER ==
--- NOTE | 2018-02-14 14:08 | EDPHY ---
General - History Smoking Status: Current every day smoker Time Seen by Provider: 02/14/18 14:08 Narrative: CHIEF COMPLAINT: Hand pain HISTORY OF PRESENT ILLNESS: Patient complains of pain in her hands and her left neck. The pain in her hands is primarily in the left little finger and in the right middle finger and thumb. This has been present for 3-5 days. Steadily worsening. It is red and warm to her. No fever. The pain is severe in difficult for her to do anything with. She feels it is related to a scleroderma aggravation. She has had multiple episodes the past resulting in multiple partial amputations. She continues to smoke and has not followed up with her tailer off. She has no trauma or injury. No fever chills. She has secondary complaint of pain in the left side of her neck. No trauma. No numbness, tingling or weakness. REVIEW OF SYSTEMS: Ten systems reviewed and are negative unless otherwise noted in the HPI PCP: [facility] SPECIALISTS: Rheumatology PAST MEDICAL HISTORY: Asthma, scleroderma, GERD, esophageal cancer, cholecystitis, emphysema, rheumatoid arthritis, osteomyelitis, hepatitis-C, frostbite PAST SURGICAL HISTORY: Multiple digital amputations SOCIAL HISTORY: Daily smoker. Currently homeless FAMILY HISTORY: Noncontributory EXAMINATION General Appearance: Alert, no distress Head: normocephalic, atraumatic Eyes: Pupils equal and round, no conjunctival pallor or injection ENT, Mouth: Mucous membranes moist. Poor dentition. Neck: Normal inspection, supple, non-tender Respiratory: Mild rhonchi. No wheezing or crackles. Cardiovascular: Regular rate and rhythm. Extremities are warm. Fingers with remaining distal phalanges have brisk cap refill. Neurological: A&O. No focal Skin: Warm and dry. Two areas of ulceration on the fingers below. Extremities: Tenderness to palpation all fingers of both hands. She has moderate edema of the right thumb over the IP joint, moderate swelling of the right middle finger with ulceration and purulence. There is a superficial ulceration on the distal phalanx of the left little finger. Psychiatric: Mood and affect normal DIFFERENTIAL DIAGNOSES: Including but not limited to osteomyelitis, ulceration, vaso constriction, basal spasm, scleroderma MDM: 2:10 p.m. Pain of both hands with patient suspecting scleroderma flare. She does have ulcerations on 1 fingers left hand on the left thumb. She has normal vital signs. She does have scleroderma with no ongoing care. Vital signs within normal limits. 3:00 p.m. Patient has also been examined by Dr. Bravo. Please see his note for further details. We are in agreement that patient will need admission due to significant pain, ulceration and erythema. IV will be placed for laboratory studies pending. 4:00 p.m. Patient has been admitted to the hospitalist. I have reviewed her x-rays with Dr. Bravo. Multiple abnormalities but no obvious evidence of gangrene or osteomyelitis. Vancomycin was ordered and she has been admitted for pain control and further evaluation. Admitted in stable condition. Laboratory studies and x-ray are pending. SUPERVISION: Patient was evaluated and examined in conjunction with my secondary supervising physician as documented. We have both examined the patient. (Hunter Novoa) Medical Decision Making: PHYSICIAN DOCUMENTATION: The patient was evaluated and managed by the Physician Beehive Kiln Supervisor and myself. I have reviewed the chart and agree with the findings and plan of care as documented. In addition, I examined the patient myself at 1440. History confirmed as previous MRSA, previous multiple finger amputations. She had right middle finger PIP wound start draining 4 days ago and ulcer on the tip of her left small finger started 2 days ago.. Physical findings as follows: Left small finger is red and has difficulty extending, it is held flexed. The right middle finger is flexed and has an open wound on PIP. There is no proximal redness in the hand wrist or forearm on either side. Plan for x-rays, pain medication and IV antibiotics cover MRSA, admission with orthopedic hand consultation in a patient with connective tissue disorder and previous infection osteomyelitis and a finger amputation. Discussed with Dr. Elkins at 1500. 1617: Possible osteomyelitis middle finger proximal phalanx distal tip, [facility]. I am the secondary supervising physician. (Jonathon Bravo) - Diagnostics Imaging Results: Imaging Impressions Hand X-Ray 02/14/18 14:40 Impression: 1. Limited assessment of severe irregularity of the head of the proximal phalanx of the 3rd finger, with periosteal reaction in the proximal phalanx, suspicious for osteomyelitis. 2. Additional findings, as above. Findings discussed with Jonathon Bravo M.D., answering for Hunter Novoa PA-C, on February 14, 2018 at 1617. - Objective Vital Signs: Initial Vital Signs Temperature (C) 98.1 F 02/14/18 10:47 Heart Rate 86 02/14/18 10:47 Respiratory Rate 18 02/14/18 10:47 Blood Pressure 106/87 H 02/14/18 10:47 O2 Sat (%) 97 02/14/18 10:47 O2 Delivery Mode Room Air Allergies/Adverse Reactions: No Known Allergies Allergy (Verified 02/14/18 10:45) Home Medications: Medication Instructions Recorded Albuterol [Proventil Inhaler HFA 1 - 2 puffs IH Q4H PRN 01/02/16 (*)] Acetaminophen [Tylenol 325mg (*)] 650 mg PO Q4HRS PRN #0 tab 04/13/17 Medications Given: Discontinued Medications Sodium Chloride (Ns) 1,000 mls @ 0 mls/hr IV EDNOW ONE; Wide Open PRN Reason: Protocol Stop: 02/14/18 14:49 Last Admin: 02/14/18 15:18 Dose: 1,000 mls Vancomycin/Sodium Chloride (Vancomycin 1 Gm (Premix)) 250 mls @ 250 mls/hr IV EDNOW ONE PRN Reason: Protocol Stop: 02/14/18 15:47 Last Admin: 02/14/18 15:45 Dose: 250 mls Oxycodone/Acetaminophen (Percocet 5/325) 2 tab PO EDNOW ONE Stop: 02/14/18 14:49 Last Admin: 02/14/18 15:15 Dose: 2 tab Departure - Departure Disposition: [facility] Inpatient Acute Clinical Impression: Finger infection Condition: Fair
[2018-02-14] MEDS ORDERED: OXYCODONE/APAP 5/325 TAB PO ONE (14:48)
[2018-02-14] MEDS ORDERED: NS 1,000 ML IV ONE (14:48)
[2018-02-14] MEDS ORDERED: VANCOMYCIN HCL/NORMAL SALINE 250 ML IV ONE (14:48)
[2018-02-14] MEDS ORDERED: ONDANSETRON 4 MG/2 ML VIAL IVP PRN (15:31)
[2018-02-14] MEDS ORDERED: ACETAMINOPHEN 325 MG TAB PO PRN ×2 (15:31→16:26)
[2018-02-14 15:52] LABS: PLATELET COUNT 345 10^3/uL (150-400)
[2018-02-14] MEDS ORDERED: OXYCODONE/APAP 5/325 TAB PO PRN (16:27)
[2018-02-14] MEDS ORDERED: VANCOMYCIN HCL/NORMAL SALINE 250 ML IV SCH (16:30)
[2018-02-14 16:33] LABS: INR 1.02 (0.83-1.16); PROTIME(PATIENT) 13.6 SEC (12.0-15.0)
--- NOTE | 2018-02-14 17:10 | GHP ---
[f rep st] HISTORY AND PHYSICAL DATE OF ADMISSION: 02/14/2018 CHIEF COMPLAINT: Right thumb, middle finger drainage and pain. HISTORY OF PRESENT ILLNESS: A 52-year-old female with history of scleroderma, prior left 3rd and 4th finger amputations secondary to frostbite, presenting with drainage from her right middle finger and right elbow. She says these have been draining intermittently for the last couple of months, also her right knee. Came to ED today, because pain so bad in right thumb and finger. Describes as throbbing and sharp intermittently. She says it has gotten more warm and red. Denies fevers but endorses sweats and emesis last night. Has lost over 30 pounds in the last year because she says she cannot eat when her hands are hurting too badly because she cannot cook for herself. Previously had a home but has become homeless in January. She was hospitalized May 2017 for Strep bacteremia and underwent left 4th finger amputation, revision of 3rd finger amputation by Dr. Hull. REVIEW OF SYSTEMS: I completed a 10-point review of systems, negative except as noted in HPI. PAST MEDICAL HISTORY: 1. Scleroderma. 2. Dysphagia, status post esophageal dilatations. 3. COPD. 4. GERD. 5. History of esophageal cancer, had previously been on XRT but stopped treatment due to lack of funds. 6. Chronic aspiration. 7. Severe protein caloric malnutrition. 8. History of osteomyelitis of the left 3rd and 4th fingers, status post amputation. 9. Frostbite in the with residual chronic pain. PAST SURGICAL HISTORY: 1. Cholecystectomy. 2. Third and 4th finger left amputations, right 4th finger amputation. FAMILY HISTORY: Father of colon cancer. SOCIAL HISTORY: Homeless as of January. Denies alcohol. Smokes marijuana regularly. Had a history of cocaine, last used 8 years ago. No history of IV drug use. Has smoked tobacco for 10 years. Previously been incarcerated on and off, but last jailed 5 years ago. ALLERGIES: None. HOME MEDICATIONS: Albuterol and Tylenol as needed. PHYSICAL EXAM: VITAL SIGNS: Temperature 36.8, blood pressure 110/79, heart rate is in the 90s, respirations 18, 99% on room air. GENERAL: Cachectic with temporal muscle wasting. Chronically ill-appearing. HEENT: PERRLA. Dry mucous membranes. CV: Regular rate and rhythm. No murmurs, gallops, or rubs. LUNGS: Clear. ABDOMEN: Soft, nontender, nondistended. Positive bowel sounds. : No Farris. MUSCULOSKELETAL: Left hand with 3rd and 4th finger amputations. Small ulceration on her 1st digit. RIGHT HAND: The thumb is swollen, red, and tender to palpation. The 4th finger knuckle scabbed over with no drainage now, but tender. RIGHT ELBOW: Mild erythema. Pus is produced with squeezing. RIGHT KNEE: With a scabbed over lesion. No surrounding erythema or warmth. Has full range of motion. NEURO: 2 through 12 intact. PSYCH: Alert and oriented x3. LABS: WBC is 8.3, hemoglobin 13, hematocrit 39, platelets 345. INR 1.02, PT is 39. BMP is pending. X-RAY: Possible osteomyelitis middle finger, proximal phalanx, distal tip. ASSESSMENT/PLAN: 1. Suspected osteomyelitis of right 3rd proximal phalanx: IV vancomycin, waiting for call back from Orthopedics. Will consult Infectious Disease. Hemodynamically stable. No evidence of sepsis. 2. Severe protein caloric malnutrition: We will have dietary see her. Ensure supplements. 3. History of scleroderma contributing to these infections. We will provide pain control with Percocet. 4. History of chronic obstructive pulmonary disease. Albuterol. No evidence of exacerbation. 5. History of esophageal cancer with history of radiation. 6. Weight loss: She attributes this to when she cannot eat for herself due to pain. Her father does have a history of colon cancer. She denies black or bloody stools, but would benefit from a colonoscopy as an outpatient. 7. Right elbow pain: purulent drainage. Xray pending 7. Diet n.p.o. for now. DVT prophylaxis with SCDs. DISPOSITION: Patient warrants inpatient admission given likely osteomyelitis, warranting IV antibiotics and possible surgical intervention. /[id number]/MODL MTDD
[2018-02-14] MEDS: OXYCODONE/APAP 5/325 TAB PO PRN (20:50)
[2018-02-15] MEDS: OXYCODONE/APAP 5/325 TAB PO PRN ×5 (01:56→20:20)
--- NOTE | 2018-02-15 09:56 | PDMN ---
Medical Necessity Medical necessity: Pt meets IP criteria per MD; est los >2 mn for eval/tx of suspected osteomyelitis of R 3rd proximal phalanx, R elbow pain w/purulent drainage & severe protein caloric malnutrition; admit for further monitoring, possible surgical intervention, ID/Orthopedic/Dietary/Wound Care consults & IV abx; hx scleroderma, COPD, dysphagia, chronic aspiration, esophageal cancer & osteomyelitis of L 3rd & 4th fingers s/p amputation; per H&P & order 02/14/18
--- NOTE | 2018-02-15 11:21 | PCMIDPN ---
Assessment/Plan: Assessment: Patient known to our service from previous admission with left upper extremity osteomyelitis. Now presents with right 3rd digit evidence of osteomyelitis and drainage. Suspect patient will need further debridement. Staph aureus on culture. Will continue vancomycin. Will check trough level. Plan: 1. Continue vancomycin empiric therapy. 2. Follow up on sensitivity panels for Staph aureus. If MSSA will switch over to cefazolin. 3. Follow Hand surgery. 02/15/18 15:20 02/15/18 15:20 Subjective: Patient is resting in her hospital bed. She is somewhat tearful. She has been kicked out of her house recently and is now back on [address]. She still continues to follow with Rheumatology. Noticed drainage from her right PIP joint that has been going on for a number of days. No fevers or chills. Objective: Vancomycin # 1 Vital Signs Temp Pulse Resp BP Pulse Ox 36.8 C 86 12 112/72 94 02/15/18 08:00 02/15/18 08:00 02/15/18 08:00 02/15/18 08:00 02/15/18 08:00 Microbiology 02/14/18 15:35 Gram Stain - Final Finger - Swab Laboratory Results 02/14/18 15:35 02/14/18 15:35 02/14/18 02/15/18 02/16/18 05:59 05:59 05:59 Intake Total 720 250 Balance 720 250 ESR 22 MM/HR (0-30) 02/14/18 15:35 C-Reactive Protein 24.1 mg/L (<10.0) H 02/14/18 15:35 - Physical Exam General Appearance: WD/WN, alert, no apparent distress, non-toxic Respiratory: lungs clear, normal breath sounds, No respiratory distress Cardiac/Chest: regular rate, rhythm, No bradycardia Extremities: non-tender, erythema, other (Drainage right 3rd PIP joint), No normal inspection Skin: normal color, warm/dry, No rash Neuro/Psych: alert, normal mood/affect, oriented x 3 ICD10 Worksheet Patient Problems: Problems Problem Status Onset Finger infection Acute Constipation Acute Osteomyelitis of finger of left hand Acute Pneumonia Acute Scleroderma Acute Sepsis Acute Sinus tachycardia Acute Suicidal ideations Acute
--- NOTE | 2018-02-15 11:44 | ASMTCASEMG ---
Living Arrangements What is your living Answers: Alone arrangement? Who do you live with? Type Of Residence What kind of residence do Answers: Homeless you live in? Discharge Plan Comments Coordination Status Comments Notes: Pt is a 52 y/o female admitted for bilateral finger infection. Pt had a left 3rd and 4th finger amputation due to osteomyelitis. Pt has a hx of scleroderma. Pt was previously living at [facility] but became homeless in January. Pt is currently on ivabx. Needs are TBD at this time. CM to follow. Plan: TBD Date Signed: 02/15/2018 11:44 AM Electronically Signed By:ALONZO Mendoza
--- NOTE | 2018-02-15 12:10 | WOCRNPDOC ---
WOCRN Advanced Assessment Note - Skin Integrity Problem, Advanced Assess Right hand 3rd finger Dressing Type: Open to Air Exudate Amount: Scant Exudate Characteristic(s): Serosanguinous Brody Wound Tissue: Swollen, Painful/Tender Brody Wound Swelling: Moderate Wound Bed Color: Black, Red Site Measurement - Head-to-Toe Length X Width X Depth (cm): 1.2x1.8x0.2 Skin Integrity Problem Comment: Knuckle between middle and proximal phalange is very swollen, and has a large deep fissure that runs from approximally 12-6 oclock. The wound bed in the crease is black and not visible. It is surrounded by devascularized swollen whitish tissue which is painful. Patient has history of scleroderma, frostbite, and amputations to fingers of both hands. Wound to right middle finger is at knuckle of prior amputation site. Patient stated that another amputation may be ordered. Patient also states that at times when she covers the wound it tends to drain more. Will recommend betadine swabs BID to help keep wound dry and manage bacterial burden. Right hand 1st finger Dressing Type: Open to Air Brody Wound Tissue: Swollen, Painful/Tender Site Measurement - Head-to-Toe Length X Width X Depth (cm): 0.5x0.9x0 Skin Integrity Problem Comment: Right thumb has a severely swollen area on distal thumb. It presents as a yellow/whitish devascularized area approximately 0.5x1. This area is not currently open but may open in the near future. Left hand 5th finger Dressing Type: Open to Air Brody Wound Tissue: Swollen, Painful/Tender Wound Bed Color: Black Site Measurement - Head-to-Toe Length X Width X Depth (cm): 0.3x0.3x0.2 Skin Integrity Problem Comment: Patient presents with scleroderma to left fifth digit. Patient is followed by ID. Painted tip with betadine and allowed to dry. Skin prep applied brody wound and then covered with 1/2 a replicaire for patient comfort. ADDY Quezada said that due to osteomyelitis present in this wound, Infectious Disease is following.Wound care will sign off.
[2018-02-15] MEDS ORDERED: IBUPROFEN 600 MG TAB PO ONE ×2 (13:40→14:15)
--- NOTE | 2018-02-15 14:29 | HOSPPROG ---
Hospitalist Progress Note Assessment/Plan: Patient is a 52-year-old female with history of scleroderma with prior left 3rd and 4th finger amputation secondary to frostbite. She presented emergency room with drainage from her right middle finger and right elbow. I reviewed her care with Dr. Chaves. Today is my 1st encounter with the patient. Chart reviewed. * likely osteomyelitis of the right 3rd proximal phalanx -surgery to see (spoke w admitting physician and they know to see her) -appreciate Infectious Disease seeing her -Vanco * pain due to this -resumed her home dose Percocet -trial of ibuprofen * severe protein calorie malnutrition -valet cashier to see *GERD -PPI bid *neck pain -will get an xray to further evaluate -trial of muscle relaxant -trial of gabapentin * history of COPD *Cannibis use *homelessness -was in an apt in [facility], said her landlord didn't like her/ spoke with CM and they will look further into this *Plan: avoid increasing her narcotic dose, trial of ibuprofen, gabapentin and Robaxin for pain Subjective: Renetta is mainly c/o neck pain in the left trapezius area. Objective: Vital Signs Temp Pulse Resp BP Pulse Ox 36.9 C 84 20 117/81 H 94 02/15/18 11:50 02/15/18 11:50 02/15/18 11:50 02/15/18 11:50 02/15/18 11:50 Microbiology 02/14/18 15:35 Gram Stain - Final Finger - Swab Laboratory Results 02/14/18 15:35 02/14/18 15:35 02/14/18 02/15/18 02/16/18 05:59 05:59 05:59 Intake Total 720 250 Balance 720 250 PT 13.6 SEC (12.0-15.0) 02/14/18 16:05 INR 1.02 (0.83-1.16) 02/14/18 16:05 - Physical Exam Constitutional: chronically ill appearing, uncomfortable, cachectic Eyes: PERRL Ears, Nose, Mouth, Throat: hearing normal Cardiovascular: regular rate and rhythym Respiratory: no respiratory distress, reduced air movement Skin: warm, other (r thumb swollen, red. left hand w 3rd and 4th finger amputations) Musculoskeletal: generalized weakness Neurologic: AAOx3 Psychiatric: anxious ICD10 Worksheet Patient Problems: Problems Problem Status Onset Finger infection Acute Constipation Acute Osteomyelitis of finger of left hand Acute Pneumonia Acute Scleroderma Acute Sepsis Acute Sinus tachycardia Acute Suicidal ideations Acute
[2018-02-15] MEDS: CALCIUM CARBONATE 500 MG CHEWABLE TAB PO PRN ×3 (14:36→20:34)
[2018-02-15] MEDS ORDERED: VANCOMYCIN 750 MG in D5W 150 ML IV SCH (16:00)
[2018-02-15] MEDS ORDERED: VANCOMYCIN HCL/NORMAL SALINE 250 ML IV SCH (16:00)
[2018-02-15] MEDS ORDERED: BISACODYL 10 MG SUPP PR PRN (16:07)
[2018-02-15] MEDS ORDERED: MAGNESIUM HYDROXIDE 30 ML UDCUP PO PRN (16:07)
[2018-02-15] MEDS ORDERED: LACTULOSE 20 GM/30 ML UDCUP PO PRN (16:07)
[2018-02-15] MEDS: PANTOPRAZOLE SODIUM 40 MG TAB PO SCH ×2 (16:17→20:19)
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
[2018-02-15] MEDS: POLYETHYLENE GLYCOL 3350 17 GM PKT PO SCH ×2 (16:40→20:29)
--- NOTE | 2018-02-15 17:10 | GCON ---
[f rep st] CONSULTATION HAND SURGERY CONSULTATION. DATE OF CONSULTATION: 02/15/2018 CHIEF COMPLAINT: Necrotizing infection of right middle finger and probable infection of right thumb. HISTORY OF PRESENTING COMPLAINT: The patient is a 52-year-old female with a history of scleroderma and multiple finger amputations secondary to necrosis. Her most recent episode occurred over the last few days with increasing pain in the right middle finger and right thumb. Apparently, she has been kicked out of her home in the last several days. She has a history of 30-pound weight loss in the last several months, and she has a history of esophageal cancer apparently. PAST MEDICAL HISTORY: Positive for heavy smoking and marijuana use. History of COPD, history of gastroesophageal reflux. PAST SURGICAL HISTORY: Finger amputations, as mentioned above, and cholecystectomy. PHYSICAL EXAMINATION: VITAL SIGNS: She is afebrile. Vitals are stable. EXTREMITIES: Her left hand shows amputation of the index, middle, and ring fingers at the proximal phalangeal level. On the right hand, she has amputation of the ring finger at the proximal phalangeal level and loss of the tip of the index finger with some ulceration present there. On the middle finger, the dorsal PIP joint is extensively ulcerated and exposed. There is loss of skin there, and the finger is held in a flexed position with it essentially dislocated at the PIP joint and is very tender and not mobile. The thumb appears mostly intact with significant volar swelling over the PIP joint level and skin that appears to have a purulent collection beneath it. 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 At this point, further exhortations to quit smoking are probably useless, but I have brought that up with her. I think amputation of the right middle finger at the proximal phalangeal level is necessary at this point. I am extremely hesitant to consider amputating the right thumb, but I think some minimal amount of incision and drainage is necessary at this point. I have told her there is a high possibility that amputation of this digit will be necessary too at some point, but there is a minimal amount of necrosis present at this point. PLAN: I will take her to the operating room tomorrow and amputate the right middle finger and attempt a conservative incision and drainage on the right thumb. We will continue with the antibiotics in the meantime. /[id number]/MODL MTDD
[2018-02-15] MEDS: GABAPENTIN 100 MG CAP PO SCH (20:18)
[2018-02-15] MEDS: SENNOSIDES/DOCUSATE SODIUM TAB PO SCH (20:20)
[2018-02-15] MEDS: METHOCARBAMOL 500 MG TAB PO PRN (20:21)
[2018-02-16] MEDS: OXYCODONE/APAP 5/325 TAB PO PRN ×5 (00:53→21:26)
--- NOTE | 2018-02-16 07:37 | HOSPPROG ---
Hospitalist Progress Note Assessment/Plan: Patient is a 52-year-old female with history of scleroderma and current tobacco abuse with prior left 3rd and 4th finger amputation. She presented emergency room with drainage from her right middle finger and right elbow. Today is my 1st encounter with the patient. Chart reviewed. * likely osteomyelitis of the right 3rd proximal phalanx and R thumb -appreciate Dr. Rosenthal hand surgeon seeing who plans for R middle finger and I&D of thumb for likely Buerger disease -appreciate Infectious Disease seeing her -Vanco + S. aureus culture * pain due to this -resumed her home dose Percocet -trial of ibuprofen * severe protein calorie malnutrition -bakery machine mechanic to see *GERD -PPI bid *neck pain -C spine shows mod-severe dextroscoliosis of mid-upper C spine, mod subluxation of mid C spine -trial of muscle relaxant and Gabapentin for conservative management -will refer to NSG versus PCP for future management * history of COPD -adventitious BS -will add Robitussin *smoking -reviewed importance of smoking cessation -will add Wellbutrin *depression -previously has been on Celexa -currently tearful as she has no support -spiritual care consult ordered -will resume Celexa *Cannabis use *homelessness -was in an apt in [facility], said her landlord didn't like her/ spoke with CM and they will look further into this *Plan: OT consult for dispo to rehab. Add Celexa and Wellbutrin. Subjective: Tearful due to loss of fingers and lack of support. Pain in hands improved. Not complaining of neck pain. Objective: Vital Signs Temp Pulse Resp BP Pulse Ox 98.1 F 80 16 105/71 92 02/16/18 04:00 02/15/18 23:30 02/16/18 04:00 02/16/18 04:00 02/16/18 04:00 Microbiology 02/14/18 15:35 Gram Stain - Final Finger - Swab Laboratory Results 02/14/18 15:35 02/14/18 15:35 02/15/18 02/16/18 02/17/18 05:59 05:59 05:59 Intake Total 720 750 Balance 720 750 PT 13.6 SEC (12.0-15.0) 02/14/18 16:05 INR 1.02 (0.83-1.16) 02/14/18 16:05 - Physical Exam Constitutional: cachectic Eyes: anicteric sclera Ears, Nose, Mouth, Throat: moist mucous membranes, poor dentition Cardiovascular: regular rate and rhythym, no murmur, rub, or gallop Respiratory: bronchial breath sounds Genitourinary: No rod in urethra Psychiatric: interacting appropriately, anxious, depressed ICD10 Worksheet Patient Problems: Problems Problem Status Onset Finger infection Acute Constipation Acute Osteomyelitis of finger of left hand Acute Pneumonia Acute Scleroderma Acute Sepsis Acute Sinus tachycardia Acute Suicidal ideations Acute
[2018-02-16] MEDS: POLYETHYLENE GLYCOL 3350 17 GM PKT PO SCH (07:47)
[2018-02-16] MEDS: GABAPENTIN 100 MG CAP PO SCH ×3 (07:47→21:25)
[2018-02-16] MEDS: SENNOSIDES/DOCUSATE SODIUM TAB PO SCH ×2 (07:47→21:42)
[2018-02-16] MEDS: PANTOPRAZOLE SODIUM 40 MG TAB PO SCH ×2 (07:48→21:25)
[2018-02-16] MEDS ORDERED: BUPIVACAINE 0.5% 30 ML SDV ONE (09:29)
[2018-02-16] MEDS ORDERED: LIDOCAINE 1% 300 MG/30 ML SDV ONE (09:29)
[2018-02-16] MEDS ORDERED: POLYMYXIN B SULFATE 500,000 UNIT/10 ML SYR IRR ONE (09:30)
[2018-02-16] MEDS ORDERED: BACITRACIN 50,000 UNITS/10 ML SYR IRR ONE (09:30)
--- NOTE | 2018-02-16 10:09 | PDANEPAE ---
ANE History of Present Illness here for finger amputation ANE Past Medical History - Cardiovascular History Hx Hypertension: No Hx Arrhythmias: No Hx Chest Pain: No Hx Coronary Artery / Peripheral Vascular Disease: No Hx CHF / Valvular Disease: No Hx Palpitations: No - Pulmonary History Hx COPD: Yes Hx Asthma/Reactive Airway Disease: No Hx Recent Upper Respiratory Infection: No Hx Oxygen in Use at Home: No Hx Sleep Apnea: No Sleep Apnea Screening Result - Last Documented: Negative - Endocrine History Hx Diabetes: No Obesity: no - Renal History Hx Renal Disorders: No - Neurological & Psychiatric Hx Hx Neurological and Psychiatric Disorders: No - GI History GERD: severe Hx Gastrointestinal Disorders: Yes Gastrointestinal History Comment: patient states has had multiple dilations in the past, trouble swallowing food and significant GERD - Chronic Pain History Chronic Pain: Yes ANE Review of Systems Review of systems is: negative Review of Systems: - Exercise capacity Exercise capacity: >=4 METS ANE Patient History - Allergies Allergies/Adverse Reactions: No Known Allergies Allergy (Verified 02/14/18 10:45) - Home Medications Home medications: home medication list seen and reviewed Home Medications: Albuterol [Proventil Inhaler HFA (*)] 1 - 2 puffs IH Q4H PRN 01/02/16 [Last Taken 04/15/17] - NPO status NPO Status: no food or drink >8 hours NPO Since - Liquids (Date): 02/15/18 NPO Since - Liquids (Time): 21:00 NPO Since - Solids (Date): 02/15/18 NPO Since - Solids (Time): 21:00 - Anes Hx Anes Hx: no prior problems - Smoking Hx Smoking Status: Current every day smoker ANE Labs/Vital Signs - Labs Result Diagrams: 02/14/18 15:35 02/14/18 15:35 - Vital Signs Vital Signs: reviewed preoperatively; see RN documention for details Blood Pressure: 100/74 Heart Rate: 80 Respiratory Rate: 20 O2 Sat (%): 99 Height: 167.64 cm Weight: 43.998 kg ANE Physical Exam - Airway Neck exam: FROM Mallampati Score: Class 1 Mouth exam: dentures - Pulmonary Pulmonary: no respiratory distress - Cardiovascular Cardiovascular: regular rate and rhythym - ASA Status ASA Status: III ANE Anesthesia Plan Anesthesia Plan: general endotracheal anesthesia
[2018-02-16] MEDS ORDERED: fentaNYL 100 MCG/2 ML INJ ONE ×2 (10:18→10:52)
[2018-02-16] MEDS ORDERED: fentaNYL 100 MCG/2 ML INJ IVP ONE (10:30)
[2018-02-16] MEDS ORDERED: PROPOFOL 200 MG/20 ML VIAL ONE (10:50)
[2018-02-16] MEDS ORDERED: ALBUTEROL 3 ML DEYVIAL IH PRN (11:06)
[2018-02-16] MEDS ORDERED: NALOXONE HCL 0.4 MG/ML INJ IVP PRN (11:06)
[2018-02-16] MEDS ORDERED: HYDROmorphONE/DILAUDID 2 MG/ML INJ IVP PRN (11:06)
[2018-02-16] MEDS ORDERED: fentaNYL 100 MCG/2 ML INJ IVP PRN (11:06)
[2018-02-16] MEDS ORDERED: oxyCODONE IR 5 MG TAB PO PRN (11:12)
[2018-02-16] MEDS ORDERED: ONDANSETRON 4 MG/2 ML VIAL IVP PRN (11:12)
[2018-02-16] MEDS ORDERED: HYDROCODONE/APAP 5/325 TAB PO PRN (11:12)
[2018-02-16] MEDS ORDERED: DEXAMETHASONE 4 MG/ML VIAL IVP PRN (11:12)
--- NOTE | 2018-02-16 12:01 | POSTOPPROG ---
Post Op Note Date of Operation: 02/16/18 Surgeon: Burt Rosenthal Anesthesia: GET(General Endotracheal) Pre-op Diagnosis: necrotic right middle finger and infected right thumb Post-op Diagnosis: Same Procedure: Amputation right middle finger and incision and drainage right thumb Inf/Abcess present in the surg proc area at time of surgery?: Yes Depth: Deep Incisional (Fascial) EBL: Minimal
--- NOTE | 2018-02-16 12:26 | POSTANESTH ---
Post Anesthetic Evaluation Cardiovascular Status: Normal, Stable Respiratory Status: Normal, Stable Level of Consciousness/Mental Status: Mildly Sleepy, Arousable Pain Control: Adequate, Prn Tx Ordered Nausea/Vomiting Control: Adequate, Prn Tx Ordered Complications Possibly Related to Anesthesia: None Noted
--- NOTE | 2018-02-16 13:57 | GOP ---
[f rep st] OPERATIVE REPORT DATE OF OPERATION: 02/16/2018 SURGEON: Burt Rosenthal MD PREOPERATIVE DIAGNOSIS: Necrosis, right middle finger and possible infection, right thumb. POSTOPERATIVE DIAGNOSIS: Necrosis, right middle finger and confirmed infection , right thumb. PROCEDURE PERFORMED: FINDINGS: SPECIMENS: The finger was sent for pathologic examination, and a swab for Gram stain was sent from the thumb wound. ESTIMATED BLOOD LOSS: 20 mL. DESCRIPTION OF PROCEDURE: With the patient lying supine under general anesthesia, the right hand and distal forearm were prepped and free draped. Incision was made on the middle finger consisting of a long volar flap out to the distal phalanx, coming back just proximal to the area of dorsal necrosis and then essentially transverse across the dorsum of the finger at the proximal margin of necrotic tissue. The volar flap was elevated with the neurovascular bundles contained in it. Very little bleeding was encountered. Distally, it was apparent that the flap would be minimally viable and things were trimmed back. On the dorsal aspect, the extensor tendons were cut in the middle part of the proximal phalanx. The bone was amputated and the flexor tendons were cut and allowed to retract back. The specimen was removed and sent for pathologic examination. The bony amputation stump was rounded off with a rongeur. The volar flap was trimmed and rotated back and sutured with 4-0 Prolene. Attention was then turned to the thumb, where incision was made on the radial volar aspect at about the level of the PIP joint and immediate white- colored, semi-liquid material, with a consistency I would describe as pudding- like, was expressed. This initially looked consistent with a sebaceous cyst or abscess, but did not have the usually associated odor. The collection was expressed. The nonviable skin that was overlying it was trimmed away. The collection appeared to be immediately underneath the skin, but did extend down to the tendon sheath, where it was further expressed. Irrigation with saline and bacitracin was carried out of a liter or 2. Loose closure of the wound was carried out with 4-0 Prolene. A dressing of Xeroform and gauze was applied. Xeroform and gauze were also applied to the finger and a fiberglass volar slab- type splint was applied. The procedure was tolerated well. /[id number]/MODL MTDD
[2018-02-16] MEDS ORDERED: GUAIFENESIN/DM 10 ML UDCUP PO PRN (14:59)
[2018-02-16] MEDS: CITALOPRAM 20 MG TAB PO SCH (15:51)
[2018-02-16] MEDS: ceFAZolin 2 GM/DEXTROSE 100 ML IV SCH (16:18)
[2018-02-16] MEDS: IBUPROFEN 200 MG TAB PO PRN (17:07)
[2018-02-16] MEDS: buPROPion SR 150 MG TAB PO SCH (21:24)
[2018-02-16] MEDS: METHOCARBAMOL 500 MG TAB PO PRN (21:25)
[2018-02-17] MEDS: ceFAZolin 2 GM/DEXTROSE 100 ML IV SCH ×4 (01:06→23:29)
[2018-02-17] MEDS: IBUPROFEN 200 MG TAB PO PRN (01:07)
[2018-02-17] MEDS: oxyCODONE IR 5 MG TAB PO PRN ×6 (01:52→23:29)
[2018-02-17] MEDS: CITALOPRAM 20 MG TAB PO SCH (08:01)
[2018-02-17] MEDS: GABAPENTIN 100 MG CAP PO SCH ×3 (08:01→20:56)
[2018-02-17] MEDS: buPROPion SR 150 MG TAB PO SCH ×2 (08:01→20:56)
[2018-02-17] MEDS: PANTOPRAZOLE SODIUM 40 MG TAB PO SCH ×2 (08:01→20:56)
[2018-02-17] MEDS: POLYETHYLENE GLYCOL 3350 17 GM PKT PO SCH (08:01)
[2018-02-17] MEDS: ONDANSETRON DISINTEGRATING 4 MG TAB PO PRN (10:06)
--- NOTE | 2018-02-17 10:34 | SOAPPROG ---
SOAP Progress Note Assessment/Plan: Assessment:Finger and thumb both looking good. 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 but I think the necessity of quitting smoking in order to heal wounds and stop losing digits is pretty definite Plan:Daily dressing changes and continue antibiotics 02/17/18 10:30 02/17/18 10:32 Objective: Vital Signs Temp Pulse Resp BP Pulse Ox 36.7 C 75 14 107/75 95 02/17/18 07:47 02/17/18 07:47 02/17/18 07:47 02/17/18 07:47 02/17/18 07:47 Microbiology 02/14/18 15:35 Gram Stain - Final Finger - Swab Wound Culture - Final Staphylococcus Aureus 02/16/18 11:20 Gram Stain - Final Finger - Eswab Laboratory Results 02/14/18 15:35 02/14/18 15:35 02/16/18 02/17/18 02/18/18 05:59 05:59 05:59 Intake Total 750 724 Balance 750 724 PT 13.6 SEC (12.0-15.0) 02/14/18 16:05 INR 1.02 (0.83-1.16) 02/14/18 16:05 Dressing changed. Right middle finger stump looks clean and viable. Right thumb looks good- some maceration of skin at wound margins but overall thumb looks good and much less painful today. ICD10 Worksheet Patient Problems: Problems Problem Status Onset Finger infection Acute Constipation Acute Osteomyelitis of finger of left hand Acute Pneumonia Acute Scleroderma Acute Sepsis Acute Sinus tachycardia Acute Suicidal ideations Acute
[2018-02-17] MEDS: SENNOSIDES/DOCUSATE SODIUM TAB PO SCH ×2 (10:44→20:50)
--- NOTE | 2018-02-17 11:12 | ASMTCMCOM ---
CM Note CM Note Notes: CM met w/ pt for dispo planning. So far, the only accepting facility is [facility]. Pt reports that she does not want to go to [facility]. CM sent additional referrals to other SNFs in the area. [facility] interested and will come and do an on site. CM left a msg for Puneet at [facility] to discuss this referral. CM had pt sign a HIPPA consent to speak w/ Reji at the [facility]. CM faxed over consent. CM to follow. Plan: TBD Date Signed: 02/17/2018 11:11 AM Electronically Signed By:ALONZO Mendoza
--- NOTE | 2018-02-17 11:38 | PCMIDPN ---
Assessment/Plan: 1. 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 Diseased bone in the right middle finger was removed. Previous superficial cultures have grown MSSA. Continue Ancef as is. She will need a minimum of 2 weeks of IV therapy ( she may need longer if her left pinky finger progresses as below) in the setting of tenosynovitis, and social work is in the process of looking for a alf facility given her homelessness. I am also quite concerned about her left 5th digit, and this will need to be watched closely--she may need incision and drainage of this area as well. X- ray does not show osteomyelitis, but consider MRI of this area if continues to worsen. I have paged Dr. Rosenthal to discuss and am waiting to hear back at the time I am dictating this note. Check HIV antibody test for completeness sake. Subjective: Status post amputation of the right middle finger, along with incision and drainage of the right thumb. Purulence noted down to the tendon sheath in her thumb. This was extensively cleaned out. Patient is frustrated by all of this. I looked at her left hand, and noted that her pinky finger is red; the patient told me that it has been like this for 4 days, and she is concerned that the same process starting in the pinky finger as well. There is a superficial ulceration noted at the tip of the finger. It is tender and swollen. She is unable to flex her finger, and she reports this is new. Objective: Ancef 2 g IV q.8 hours day 1 (antibiotics day 2 Afebrile Vital Signs Temp Pulse Resp BP Pulse Ox 36.7 C 75 14 107/75 95 02/17/18 07:47 02/17/18 07:47 02/17/18 07:47 02/17/18 07:47 02/17/18 07:47 Microbiology 02/16/18 11:20 Gram Stain - Final Finger - Eswab 02/14/18 15:35 Gram Stain - Final Finger - Swab Wound Culture - Final Staphylococcus Aureus Laboratory Results 02/14/18 15:35 02/14/18 15:35 02/16/18 02/17/18 02/18/18 05:59 05:59 05:59 Intake Total 750 724 Balance 750 724 ESR 22 MM/HR (0-30) 02/14/18 15:35 C-Reactive Protein 24.1 mg/L (<10.0) H 02/14/18 15:35 Finger swabs have grown MSSA Gram stain 3+ Gram-positive cocci in clusters - Physical Exam General Appearance: no apparent distress, cachetic EENT: other (No teeth, no thrush) Respiratory: lungs clear Cardiac/Chest: regular rate, rhythm Extremities: other (Right hand is freshly bandaged; I did not take this down. Left pinky finger is notable for a small ulceration at the finger tip. The finger is swollen and mildly erythematous.) ICD10 Worksheet Patient Problems: Problems Problem Status Onset Finger infection Acute Constipation Acute Osteomyelitis of finger of left hand Acute Pneumonia Acute Scleroderma Acute Sepsis Acute Sinus tachycardia Acute Suicidal ideations Acute
--- NOTE | 2018-02-17 15:51 | HOSPPROG ---
Hospitalist Progress Note Assessment/Plan: Patient is a 52-year-old female with history of scleroderma and current tobacco abuse with prior finger amputations. She presented emergency room with drainage from her right middle finger and right elbow. 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 POD #1 -appreciate Infectious Disease seeing her -on Ancef * pain due to this -resumed her home dose Percocet -trial of ibuprofen * severe protein calorie malnutrition -clinical quality analyst to see *GERD -PPI bid *neck pain -C spine shows mod-severe dextroscoliosis of mid-upper C spine, mod subluxation of mid C spine -trial of muscle relaxant and Gabapentin for conservative management -will refer to NSG versus PCP for future management * history of COPD -adventitious BS -will add Robitussin *smoking -reviewed importance of smoking cessation -added Wellbutrin *depression -resumed previous dosing of Celexa *Cannabis use *homelessness -was in an apt in [facility], said her landlord evicted her and would not give her housing vouchers/ will have CM continue to see *Plan: OT recommends SNF rehab. Subjective: No pain. Discusses interpersonal dynamics with her previous landlady and homeless sister. Objective: Vital Signs Temp Pulse Resp BP Pulse Ox 98.8 F 88 14 106/75 92 02/17/18 14:38 02/17/18 14:38 02/17/18 14:38 02/17/18 14:38 02/17/18 14:38 Microbiology 02/16/18 11:20 Gram Stain - Final Finger - Eswab 02/14/18 15:35 Gram Stain - Final Finger - Swab Wound Culture - Final Staphylococcus Aureus Laboratory Results 02/14/18 15:35 02/14/18 15:35 02/16/18 02/17/18 02/18/18 05:59 05:59 05:59 Intake Total 750 724 Balance 750 724 PT 13.6 SEC (12.0-15.0) 02/14/18 16:05 INR 1.02 (0.83-1.16) 02/14/18 16:05 - Physical Exam Constitutional: no apparent distress Ears, Nose, Mouth, Throat: poor dentition Cardiovascular: regular rate and rhythym, no murmur, rub, or gallop Respiratory: no respiratory distress, no rales or rhonchi Gastrointestinal: normoactive bowel sounds, soft, non-tender abdomen Neurologic: AAOx3 Psychiatric: interacting appropriately ICD10 Worksheet Patient Problems: Problems Problem Status Onset Finger infection Acute Constipation Acute Osteomyelitis of finger of left hand Acute Pneumonia Acute Scleroderma Acute Sepsis Acute Sinus tachycardia Acute Suicidal ideations Acute
[2018-02-18] MEDS: oxyCODONE IR 5 MG TAB PO PRN ×2 (04:28→08:37)
[2018-02-18 04:50] LABS: PLATELET COUNT 339 10^3/uL (150-400)
[2018-02-18] MEDS: buPROPion SR 150 MG TAB PO SCH ×2 (08:03→21:47)
[2018-02-18] MEDS: CITALOPRAM 20 MG TAB PO SCH (08:03)
[2018-02-18] MEDS: POLYETHYLENE GLYCOL 3350 17 GM PKT PO SCH (08:03)
[2018-02-18] MEDS: ceFAZolin 2 GM/DEXTROSE 100 ML IV SCH ×3 (08:03→23:10)
[2018-02-18] MEDS: PANTOPRAZOLE SODIUM 40 MG TAB PO SCH ×2 (08:03→21:47)
[2018-02-18] MEDS: GABAPENTIN 100 MG CAP PO SCH ×3 (08:03→21:47)
[2018-02-18] MEDS: SENNOSIDES/DOCUSATE SODIUM TAB PO SCH ×2 (08:10→19:49)
[2018-02-18] MEDS: IBUPROFEN 200 MG TAB PO PRN (08:36)
--- NOTE | 2018-02-18 09:07 | HOSPPROG ---
Hospitalist Progress Note Assessment/Plan: Patient is a 52-year-old female with history of scleroderma and current tobacco abuse with prior finger amputations. She presented emergency room with drainage from her right middle finger and right elbow. First encounter, chart reviewed. 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 POD #2 -appreciate Infectious Disease seeing her -on Ancef *Left 5th digit -signs of possible infection -d/w ID/ortho -consider intervention * pain due to this -resumed her home dose Percocet -trial of ibuprofen -d/w RN * severe protein calorie malnutrition -crocheter to see *GERD -PPI bid *neck pain -C spine shows mod-severe dextroscoliosis of mid-upper C spine, mod subluxation of mid C spine -trial of muscle relaxant and Gabapentin for conservative management -will refer to NSG versus PCP for future management * history of COPD -adventitious BS -Robitussin *smoking -reviewed importance of smoking cessation -Wellbutrin *depression -resumed previous dosing of Celexa *Cannabis use *homelessness -was in an apt in [facility], said her landlord evicted her and would not give her housing vouchers/ will have CM continue to see *Plan: OT recommends SNF rehab. Subjective: Pain worse in left pinky finger. Slept ok. Requesting better pain control. Objective: Vital Signs Temp Pulse Resp BP Pulse Ox 36.9 C 86 14 118/77 94 02/18/18 07:52 02/18/18 07:52 02/18/18 07:52 02/18/18 07:52 02/18/18 07:52 Microbiology 02/16/18 11:20 Gram Stain - Final Finger - Eswab Laboratory Results 02/18/18 04:15 02/14/18 15:35 02/17/18 02/18/18 02/19/18 05:59 05:59 05:59 Intake Total 724 Balance 724 PT 13.6 SEC (12.0-15.0) 02/14/18 16:05 INR 1.02 (0.83-1.16) 02/14/18 16:05 - Physical Exam Constitutional: chronically ill appearing, uncomfortable, cachectic Eyes: PERRL, anicteric sclera, EOMI Ears, Nose, Mouth, Throat: moist mucous membranes, hearing normal, ears appear normal Cardiovascular: No JVD, No tachycardia, No edema Respiratory: no respiratory distress, no rales or rhonchi, reduced air movement Gastrointestinal: normoactive bowel sounds, No tenderness, No ascites Skin: warm, erythema, induration, No rash Musculoskeletal: joint tenderness, pain with ROM, generalized weakness Neurologic: AAOx3 Psychiatric: interacting appropriately, not encephalopathic, thought process linear, poor insight, poor judgement ICD10 Worksheet Patient Problems: Problems Problem Status Onset Pneumonia Acute Scleroderma Acute Sepsis Acute Sinus tachycardia Acute Suicidal ideations Acute Constipation Acute Osteomyelitis of finger of left hand Acute Finger infection Acute
[2018-02-18] MEDS: OXYCODONE/APAP 5/325 TAB PO PRN ×3 (14:03→22:17)
--- NOTE | 2018-02-18 15:41 | PCMIDPN ---
Assessment/Plan: Assessment/Plan: * Osteomyelitis right 3rd finger status post amputation and tenosynovitis of right thumb status post incision and drainage due to MSSA: Continue cefazolin targeting tenosynovitis of right thumb. 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 Continue to follow left finger as she has ulceration and tenderness in this digit is well. Ultimately may require debridement if continues to progress. Counseled patient regarding need to stop smoking. Await further Hand surgery input. 02/18/18 15:41 Subjective: Patient complains of pain at tip of left 5th digit and decreased range of motion of left 5th digit. Objective: Vital Signs Temp Pulse Resp BP Pulse Ox 36.9 C 86 14 118/77 94 02/18/18 07:52 02/18/18 07:52 02/18/18 07:52 02/18/18 07:52 02/18/18 07:52 Microbiology 02/16/18 11:20 Gram Stain - Final Finger - Eswab Wound Culture - Final Staphylococcus Aureus Laboratory Results 02/18/18 04:15 02/14/18 15:35 02/17/18 02/18/18 02/19/18 05:59 05:59 05:59 Intake Total 724 Balance 724 ESR 22 MM/HR (0-30) 02/14/18 15:35 C-Reactive Protein 24.1 mg/L (<10.0) H 02/14/18 15:35 Cefazolin # 2, antibiotics # 3 Digit cultures with growth of MSSA - Physical Exam General Appearance: alert, no apparent distress, non-toxic Respiratory: lungs clear Cardiac/Chest: regular rate, rhythm Extremities: inflammation (Right hand dressed postoperatively; left hand shows small ulceration at tip of left 5th digit which is exquisitely tender to palpation; patient cannot fully extend digit) ICD10 Worksheet Patient Problems: Problems Problem Status Onset Finger infection Acute Constipation Acute Osteomyelitis of finger of left hand Acute Pneumonia Acute Scleroderma Acute Sepsis Acute Sinus tachycardia Acute Suicidal ideations Acute
[2018-02-19 02:49] LABS: HIV TYPE 1 AND 2 NEGATIVE (NEGATIVE)
[2018-02-19] MEDS: OXYCODONE/APAP 5/325 TAB PO PRN ×5 (04:57→23:27)
[2018-02-19] MEDS: CITALOPRAM 20 MG TAB PO SCH (08:54)
[2018-02-19] MEDS: ceFAZolin 2 GM/DEXTROSE 100 ML IV SCH ×3 (08:54→23:24)
[2018-02-19] MEDS: SENNOSIDES/DOCUSATE SODIUM TAB PO SCH ×2 (08:55→22:00)
[2018-02-19] MEDS: buPROPion SR 150 MG TAB PO SCH ×2 (08:55→21:58)
[2018-02-19] MEDS: GABAPENTIN 100 MG CAP PO SCH ×3 (08:55→21:58)
[2018-02-19] MEDS: POLYETHYLENE GLYCOL 3350 17 GM PKT PO SCH (08:55)
[2018-02-19] MEDS: PANTOPRAZOLE SODIUM 40 MG TAB PO SCH ×2 (08:55→21:58)
[2018-02-19] MEDS: ALBUTEROL 60 PUFFS/8 GM MDI IH PRN (09:24)
--- NOTE | 2018-02-19 11:34 | HOSPPROG ---
Hospitalist Progress Note Assessment/Plan: Patient is a 52-year-old female with history of scleroderma and current tobacco abuse with prior finger amputations. She presented emergency room with drainage from her right middle finger and right elbow. 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 POD #3 -appreciate Infectious Disease seeing her -on Ancef *Left 5th digit -signs of possible infection -consider intervention * pain due to this -resumed her home dose Percocet -trial of ibuprofen * severe protein calorie malnutrition -field reporter to see *GERD -PPI bid *neck pain -C spine shows mod-severe dextroscoliosis of mid-upper C spine, mod subluxation of mid C spine -trial of muscle relaxant and Gabapentin for conservative management -will refer to NSG versus PCP for future management * history of COPD -adventitious BS -Robitussin -albuterol *smoking -smoking cessation -Wellbutrin *depression -resumed previous dosing of Celexa *Cannabis use *homelessness -was in an apt in [facility], said her landlord evicted her and would not give her housing vouchers/ will have CM continue to see *Plan: OT recommends SNF rehab. Subjective: Still having pain on left pinky. Concerned about new cough. No other issues. Objective: Vital Signs Temp Pulse Resp BP Pulse Ox 36.5 C 58 L 14 114/77 90 L 02/19/18 08:52 02/19/18 09:44 02/19/18 09:44 02/19/18 08:52 02/19/18 09:44 Microbiology 02/16/18 11:20 Gram Stain - Final Finger - Eswab Wound Culture - Final Staphylococcus Aureus Laboratory Results 02/18/18 04:15 02/14/18 15:35 02/18/18 02/19/18 02/20/18 05:59 05:59 05:59 Intake Total 145 Balance 145 PT 13.6 SEC (12.0-15.0) 02/14/18 16:05 INR 1.02 (0.83-1.16) 02/14/18 16:05 - Physical Exam Constitutional: chronically ill appearing, cachectic Eyes: PERRL, anicteric sclera Ears, Nose, Mouth, Throat: moist mucous membranes, hearing normal Cardiovascular: No JVD, No edema Respiratory: no respiratory distress, reduced air movement Gastrointestinal: No tenderness, No ascites Skin: warm, erythema Musculoskeletal: pain with ROM, muscular tenderness, generalized weakness Neurologic: AAOx3 Psychiatric: not encephalopathic, poor insight, poor judgement ICD10 Worksheet Patient Problems: Problems Problem Status Onset Pneumonia Acute Scleroderma Acute Sepsis Acute Sinus tachycardia Acute Suicidal ideations Acute Constipation Acute Osteomyelitis of finger of left hand Acute Finger infection Acute
--- NOTE | 2018-02-19 16:55 | ASMTCMCOM ---
CM Note CM Note Notes: Met with patient about her need for clothes and placement in a SNF rehab. [facility] is reviewing her records but they need to run a background check since she has an arrest hx in [place]. Patient still states she does not want to go to [facility]. Patient would like us to talk to her assistant prosecuting attorney with [employer] who was supposed to protect her interests with the [facility] but did not. Email from [place] [employer] indicates she was evicted for not paying her part of the rent fee. Patient states it was not the rent but maintenance fees. 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 CM will need to follow up on this if it will be helpful. (ran out of time today). Patient did state she would be willing to go to surrounding areas like [place] or [place], if a SNF accepted her there. CM will follow. Date Signed: 02/19/2018 04:55 PM Electronically Signed By:Elissa Regan LCSW
--- NOTE | 2018-02-19 18:50 | PCMIDPN ---
Assessment/Plan: Assessment/Plan: * Osteomyelitis right 3rd finger status post amputation and tenosynovitis of right thumb status post incision and drainage due to MSSA: Thumb with scant purulence from incision site with persistent swelling and erythema. 3rd digit amputation site healing well. Will continue cefazolin. Continue to follow left 5th digit to see if this progresses over time/evolves further where debridement would be required - not sure MRI will modify treatment approaches this likely will be dictated by vascular supply. Findings and plan were reviewed with Dr. Rosenthal. 02/19/18 18:46 Subjective: Patient complains of persistent pain over tip of 5th finger and some purple discoloration. Objective: Vital Signs Temp Pulse Resp BP Pulse Ox 36.8 C 90 18 106/75 94 02/19/18 16:00 02/19/18 16:00 02/19/18 16:00 02/19/18 16:00 02/19/18 16:00 Laboratory Results 02/18/18 04:15 02/14/18 15:35 02/18/18 02/19/18 02/20/18 05:59 05:59 05:59 Intake Total 145 145 Balance 145 145 ESR 22 MM/HR (0-30) 02/14/18 15:35 C-Reactive Protein 24.1 mg/L (<10.0) H 02/14/18 15:35 Cefazolin # 3, antibiotics # 4 Digit cultures with growth of MSSA - Physical Exam General Appearance: alert, no apparent distress Extremities: inflammation (Right thumb with erythema and edema over pad with scant amount of purulent drainage; right 3rd digit amputation site healing well ; left 5th digit with sub cm ulceration at tip with slight violaceous hue to margins and slightly more prominent sausage quality to digit, remains with inability to extend digit) - Time Spent With Patient Time Spent with Patient: greater than 25 minutes Time Spent with Patient: Greater than 25 minutes spent on this patients care, greater than 50% of time spent counseling, educating, and coordinating care regarding the above mentioned plan. ICD10 Worksheet Patient Problems: Problems Problem Status Onset Finger infection Acute Constipation Acute Osteomyelitis of finger of left hand Acute Pneumonia Acute Scleroderma Acute Sepsis Acute Sinus tachycardia Acute Suicidal ideations Acute
[2018-02-20] MEDS: OXYCODONE/APAP 5/325 TAB PO PRN ×2 (05:40→13:37)
[2018-02-20] MEDS: ceFAZolin 2 GM/DEXTROSE 100 ML IV SCH ×3 (08:37→23:14)
[2018-02-20] MEDS: GABAPENTIN 100 MG CAP PO SCH ×3 (08:38→21:22)
[2018-02-20] MEDS: CITALOPRAM 20 MG TAB PO SCH (08:38)
[2018-02-20] MEDS: PANTOPRAZOLE SODIUM 40 MG TAB PO SCH ×2 (08:39→19:59)
[2018-02-20] MEDS: buPROPion SR 150 MG TAB PO SCH ×2 (08:39→19:59)
[2018-02-20] MEDS: IBUPROFEN 200 MG TAB PO PRN ×3 (08:39→23:13)
[2018-02-20] MEDS: POLYETHYLENE GLYCOL 3350 17 GM PKT PO SCH (08:40)
[2018-02-20] MEDS: SENNOSIDES/DOCUSATE SODIUM TAB PO SCH ×2 (08:52→19:59)
--- NOTE | 2018-02-20 09:42 | HOSPPROG ---
Hospitalist Progress Note Assessment/Plan: Patient is a 52-year-old female with history of scleroderma and current tobacco abuse with prior finger amputations. She presented emergency room with drainage from her right middle finger and right elbow. 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 POD #4 -appreciate Infectious Disease seeing her, D/W Dr Davis -on Ancef *Left 5th digit -signs of possible infection -consider intervention * pain due to this -resumed her home dose Percocet -trial of ibuprofen * severe protein calorie malnutrition -leather tacker to see *GERD -PPI bid *neck pain -C spine shows mod-severe dextroscoliosis of mid-upper C spine, mod subluxation of mid C spine -trial of muscle relaxant and Gabapentin for conservative management -will refer to NSG versus PCP for future management * history of COPD -adventitious BS -Robitussin -albuterol *smoking -smoking cessation -Wellbutrin *depression -resumed previous dosing of Celexa *Cannabis use *homelessness -was in an apt in [place] [place] [facility], said her landlord evicted her and would not give her housing vouchers/ will have CM continue to see *Plan: OT recommends SNF rehab. Subjective: Feeling fine. Still having pain in left pinky. Objective: Vital Signs Temp Pulse Resp BP Pulse Ox 36.6 C 78 16 108/77 97 02/20/18 07:11 02/20/18 07:11 02/20/18 07:11 02/20/18 07:11 02/20/18 07:11 Laboratory Results 02/18/18 04:15 02/14/18 15:35 02/19/18 02/20/18 02/21/18 05:59 05:59 05:59 Intake Total 145 145 Balance 145 145 PT 13.6 SEC (12.0-15.0) 02/14/18 16:05 INR 1.02 (0.83-1.16) 02/14/18 16:05 - Physical Exam Constitutional: chronically ill appearing, uncomfortable, cachectic Eyes: PERRL, anicteric sclera, EOMI Ears, Nose, Mouth, Throat: moist mucous membranes, hearing normal, ears appear normal, poor dentition Cardiovascular: regular rate and rhythym, No JVD, No edema Respiratory: no respiratory distress, no rales or rhonchi, clear to auscultation Gastrointestinal: normoactive bowel sounds, No tenderness, No ascites Skin: warm, normal color, erythema, No mottled Musculoskeletal: no joint effusions, joint tenderness, generalized weakness Neurologic: AAOx3 Psychiatric: not anxious, not encephalopathic, thought process linear ICD10 Worksheet Patient Problems: Problems Problem Status Onset Pneumonia Acute Scleroderma Acute Sepsis Acute Sinus tachycardia Acute Suicidal ideations Acute Constipation Acute Osteomyelitis of finger of left hand Acute Finger infection Acute
[2018-02-20] MEDS: oxyCODONE IR 5 MG TAB PO PRN ×3 (12:06→19:59)
--- NOTE | 2018-02-20 16:40 | ASMTCMCOM ---
CM Note CM Note Notes: CM spoke w/ Nadeen REFERRAL CLERK regarding d/c POC. CM spoke w/ Ellen regarding [facility] acceptance. Ellen reports that [facility] cannot take pt but she will speak w/ December at [employer]. CM met w/ pt for dispo planning. CM provided pt w/ some clothes from donations. Pt requested that CM write a letter on her behalf stating that there have been some delinquent charges on her account. CM had pt sign the completed letter and faxed it. Sherry from [employer] stopped by and evaluated pt. Sherry reports that pt would be a candidate for their [facility] location. Referral sent to [facility]. CM to follow. Plan: SNF Date Signed: 02/20/2018 04:40 PM Electronically Signed By:ALONZO Mendoza
--- NOTE | 2018-02-20 17:29 | PCMIDPN ---
Assessment/Plan: Assessment/Plan: * Osteomyelitis right 3rd finger status post amputation and tenosynovitis of right thumb status post incision and drainage due to MSSA: Thumb without purulent discharge today and slightly less intense erythema. Left 5th finger looks worse with slight extension of necrotic appearing tissue. Will add amlodipine 5 mg orally daily to see if this has any impact on progression. Will review with prior journeyman molder at [facility] regarding other treatment considerations. Continue to follow tip of left 5th finger as may ultimately require debridement if continues to progress. Continue cefazolin with anticipated 2 week course of therapy given involvement of tendon sheath of right thumb. 02/20/18 17:27 Subjective: Patient complains of persistent left 5th finger pain. Objective: Vital Signs Temp Pulse Resp BP Pulse Ox 36.9 C 77 16 103/77 98 02/20/18 16:00 02/20/18 16:00 02/20/18 16:00 02/20/18 16:00 02/20/18 16:00 Laboratory Results 02/18/18 04:15 02/14/18 15:35 02/19/18 02/20/18 02/21/18 05:59 05:59 05:59 Intake Total 145 145 Balance 145 145 ESR 22 MM/HR (0-30) 02/14/18 15:35 C-Reactive Protein 24.1 mg/L (<10.0) H 02/14/18 15:35 Cefazolin # 4, antibiotics # 5 Digit cultures MSSA - Physical Exam General Appearance: alert, no apparent distress, thin EENT: No scleral icterus Extremities: inflammation (Right thumb with clean based incision; persistent swelling with erythema; no purulence; left 5th digit tip of finger with some progressive violaceous/necrosis along inferior margin of ulcer bed) - Time Spent With Patient Time Spent with Patient: greater than 25 minutes Time Spent with Patient: Greater than 25 minutes spent on this patients care, greater than 50% of time spent counseling, educating, and coordinating care regarding the above mentioned plan. ICD10 Worksheet Patient Problems: Problems Problem Status Onset Finger infection Acute Constipation Acute Osteomyelitis of finger of left hand Acute Pneumonia Acute Scleroderma Acute Sepsis Acute Sinus tachycardia Acute Suicidal ideations Acute
--- NOTE | 2018-02-20 18:33 | WOCRNPDOC ---
WOCRN Advanced Assessment Note - Skin Integrity Problem, Advanced Assess Left hand 5th finger Dressing Type: Hydrocolloid Dressing Description: Clean/Dry, Intact Exudate Amount: Scant Exudate Characteristic(s): Serosanguinous Integumentary Issue Intervention: Dressing Removed Brody Wound Tissue: Macerated, Denuded (mildly brody wound) Wound Bed Color: [place] Wound Bed Constitution: Red/[place] - Non Granular Tissue Wound Edges: Attached Skin Integrity Problem Comment: Wound becoming too moist under hydrocolloid. Will change orders and leave open to air. [place] with betadine. Left First Finger Dressing Type: Open to Air Exudate Amount: None Site Measurement - Head-to-Toe Length X Width X Depth (cm): 0.3x0.8xunknown thin fissure Skin Integrity Problem Comment: Thin fissure that is a new area of opening due to scleraderma. Unable to visualize wound bed. [place] with betadine BID. No need for wound care to follow.
[2018-02-21] MEDS: OXYCODONE/APAP 5/325 TAB PO PRN ×4 (00:05→22:56)
[2018-02-21] MEDS: oxyCODONE IR 5 MG TAB PO PRN ×3 (02:39→14:30)
[2018-02-21] MEDS: IBUPROFEN 200 MG TAB PO PRN ×2 (07:23→14:29)
[2018-02-21] MEDS: ceFAZolin 2 GM/DEXTROSE 100 ML IV SCH ×3 (07:25→23:01)
[2018-02-21] MEDS: SENNOSIDES/DOCUSATE SODIUM TAB PO SCH ×2 (07:34→22:09)
[2018-02-21] MEDS: POLYETHYLENE GLYCOL 3350 17 GM PKT PO SCH (07:34)
[2018-02-21] MEDS: buPROPion SR 150 MG TAB PO SCH ×2 (07:35→21:29)
[2018-02-21] MEDS: amLODIPine BESYLATE 5 MG TAB PO SCH (07:35)
[2018-02-21] MEDS: CITALOPRAM 20 MG TAB PO SCH (07:35)
[2018-02-21] MEDS: PANTOPRAZOLE SODIUM 40 MG TAB PO SCH ×2 (07:35→21:29)
[2018-02-21] MEDS: GABAPENTIN 100 MG CAP PO SCH ×3 (07:36→21:29)
--- NOTE | 2018-02-21 08:12 | HOSPPROG ---
Hospitalist Progress Note Assessment/Plan: Patient is a 52-year-old female with history of scleroderma and current tobacco abuse with prior finger amputations. She presented emergency room with drainage from her right middle finger and right elbow. 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 POD #4 -on Ancef *Left 5th digit -signs of possible infection * pain due to this -resumed her home dose Percocet -trial of ibuprofen * severe protein calorie malnutrition -eating overall well today *GERD -PPI bid *neck pain -C spine shows mod-severe dextroscoliosis of mid-upper C spine, mod subluxation of mid C spine -trial of muscle relaxant and Gabapentin for conservative management -will refer to NSG versus PCP for future management * history of COPD -albuterol *smoking -smoking cessation -Wellbutrin *depression -resumed previous dosing of Celexa *Cannabis use *homelessness -was in an apt in [facility], said her landlord evicted her and would not give her housing vouchers/ will have CM continue to see *Plan: Dr Davis to talk with a nondestructive tester in [place] for further guidance Subjective: Renetta is sad today, her sons haven't seen her. Her mom is her main support and is oot. Objective: Vital Signs Temp Pulse Resp BP Pulse Ox 36.7 C 79 16 112/70 91 L 02/21/18 07:15 02/21/18 07:15 02/21/18 07:15 02/21/18 07:15 02/21/18 07:15 Laboratory Results 02/18/18 04:15 02/14/18 15:35 02/20/18 02/21/18 02/22/18 05:59 05:59 05:59 Intake Total 145 160 Balance 145 160 PT 13.6 SEC (12.0-15.0) 02/14/18 16:05 INR 1.02 (0.83-1.16) 02/14/18 16:05 - Physical Exam Constitutional: chronically ill appearing, cachectic, No not in pain (her fingers are causing her pain) Eyes: PERRL Ears, Nose, Mouth, Throat: hearing normal Cardiovascular: regular rate and rhythym Respiratory: no respiratory distress Skin: warm, other (left small finger, 5th finger w swelling, tip of it darkened. ) Musculoskeletal: generalized weakness Neurologic: AAOx3 Psychiatric: interacting appropriately, depressed ICD10 Worksheet Patient Problems: Problems Problem Status Onset Finger infection Acute Constipation Acute Osteomyelitis of finger of left hand Acute Pneumonia Acute Scleroderma Acute Sepsis Acute Sinus tachycardia Acute Suicidal ideations Acute
--- NOTE | 2018-02-21 14:40 | PCMIDPN ---
Assessment/Plan: Assessment: Patient known to our service from previous admission with left upper extremity osteomyelitis. Now presents with right 3rd digit evidence of osteomyelitis and drainage. Suspect patient will need further debridement. Staph aureus on culture. Will continue cefazolin. Patient's left 5th digit now with ulceration which is worsening. She is tender around this. I think this is another manifestation of her scleroderma. Does not appear to be clinically infected now but may ulcerate and become so later. Plan: 1. Continue cefazolin therapy. 2. Follow Hand surgery. Subjective: Patient is resting in her hospital bed. She complains of increase in size on the ulcer on the left 5th tip of her finger. Tender around it. No proximal redness. No rash. Objective: Cefazolin # 5 Vital Signs Temp Pulse Resp BP Pulse Ox 36.7 C 79 16 112/70 91 L 02/21/18 07:15 02/21/18 07:15 02/21/18 07:15 02/21/18 07:15 02/21/18 07:15 Laboratory Results 02/18/18 04:15 02/14/18 15:35 02/20/18 02/21/18 02/22/18 05:59 05:59 05:59 Intake Total 145 160 Balance 145 160 ESR 22 MM/HR (0-30) 02/14/18 15:35 C-Reactive Protein 24.1 mg/L (<10.0) H 02/14/18 15:35 - Physical Exam General Appearance: WD/WN, alert, no apparent distress Respiratory: lungs clear, normal breath sounds, No respiratory distress Cardiac/Chest: regular rate, rhythm, No tachycardia Extremities: No non-tender, No normal inspection Skin: normal color, warm/dry, No rash Neuro/Psych: alert, normal mood/affect, oriented x 3 ICD10 Worksheet Patient Problems: Problems Problem Status Onset Finger infection Acute Constipation Acute Osteomyelitis of finger of left hand Acute Pneumonia Acute Scleroderma Acute Sepsis Acute Sinus tachycardia Acute Suicidal ideations Acute
--- NOTE | 2018-02-21 15:00 | ASMTCMCOM ---
CM Note CM Note Notes: CM spoke w/ Ellen this AM and she reports that [facility] cannot take pt at this time. CM spoke w/ Sherry with [facility] and she reports that she cannot accept pt. CM followed up w/ Puneet at [facility] and he reports that he can accept her. CM met w/ pt for dispo planning. CM informed her of the acceptance to [facility]. Pt is agreeable to going to [facility]. CM called pts brother Luis Angel (P#: [phone]), per her request. CM spoke w/ [facility]. It is uncertain if pt will need oral or ivabx going forward. CM to follow. Plan: [facility] Date Signed: 02/21/2018 02:59 PM Electronically Signed By:ALONZO Mendoza
[2018-02-22] MEDS: OXYCODONE/APAP 5/325 TAB PO PRN ×3 (05:28→20:22)
[2018-02-22] MEDS: ceFAZolin 2 GM/DEXTROSE 100 ML IV SCH ×2 (09:12→15:52)
[2018-02-22] MEDS: IBUPROFEN 200 MG TAB PO PRN ×2 (09:12→15:55)
[2018-02-22] MEDS: oxyCODONE IR 5 MG TAB PO PRN ×2 (09:12→15:55)
[2018-02-22] MEDS: buPROPion SR 150 MG TAB PO SCH ×2 (09:13→20:14)
[2018-02-22] MEDS: PANTOPRAZOLE SODIUM 40 MG TAB PO SCH ×2 (09:13→20:14)
[2018-02-22] MEDS: amLODIPine BESYLATE 5 MG TAB PO SCH (09:13)
[2018-02-22] MEDS: CITALOPRAM 20 MG TAB PO SCH (09:13)
[2018-02-22] MEDS: GABAPENTIN 100 MG CAP PO SCH ×3 (09:14→22:16)
[2018-02-22] MEDS: POLYETHYLENE GLYCOL 3350 17 GM PKT PO SCH (12:22)
[2018-02-22] MEDS: SENNOSIDES/DOCUSATE SODIUM TAB PO SCH ×2 (12:23→20:14)
--- NOTE | 2018-02-22 12:38 | PCMIDPN ---
Assessment/Plan: Assessment: Patient known to our service from previous admission with left upper extremity osteomyelitis. Now presents with right 3rd digit evidence of osteomyelitis and drainage. Suspect patient will need further debridement. Staph aureus on culture. Will continue cefazolin. Patient's left 5th digit now with ulceration which is worsening. She is tender around this. I think this is another manifestation of her scleroderma. Does not appear to be clinically infected now but may ulcerate and become so later. Plan: 1. Continue cefazolin therapy. 2. Follow Hand surgery opinion on left 5th digit and whether resection is appropriate for this visit or not. 3. PICC line placement. 02/22/18 12:36 Subjective: Patient is resting in her chair in her hospital room. She is upset currently because her bed linens have not been changed for a couple of days. No fevers or chills. Still has significant tenderness around the distal tip of the left 5th digit. No proximal erythema. Objective: Cefazolin # 6 Vital Signs Temp Pulse Resp BP Pulse Ox 36.6 C 84 16 92/72 L 97 02/22/18 08:00 02/22/18 08:00 02/22/18 08:00 02/22/18 08:00 02/22/18 08:00 Laboratory Results 02/18/18 04:15 02/14/18 15:35 02/21/18 02/22/18 02/23/18 05:59 05:59 05:59 Intake Total 160 Balance 160 ESR 22 MM/HR (0-30) 02/14/18 15:35 C-Reactive Protein 24.1 mg/L (<10.0) H 02/14/18 15:35 - Physical Exam General Appearance: WD/WN, alert, no apparent distress, non-toxic Respiratory: lungs clear, normal breath sounds, No respiratory distress Cardiac/Chest: regular rate, rhythm, No tachycardia Extremities: necrosis, No non-tender, No normal inspection Skin: normal color, warm/dry, No rash Neuro/Psych: alert, normal mood/affect, oriented x 3 ICD10 Worksheet Patient Problems: Problems Problem Status Onset Finger infection Acute Constipation Acute Osteomyelitis of finger of left hand Acute Pneumonia Acute Scleroderma Acute Sepsis Acute Sinus tachycardia Acute Suicidal ideations Acute
--- NOTE | 2018-02-22 13:38 | SOAPPROG ---
SOAP Progress Note Assessment/Plan: Right middle finger stump and thumb healing reasonably well. Left little finger tip demarcating. In most cases we get maximum length preservation if we allow these to fully demarcate and auto-amputate. Hopefully we'll just lose a little pulp tissue and not need to further shorten the finger as would no doubt be necessary if I were to revise it surgically. Plan:Daily dressing changes and continue antibiotics 02/17/18 10:30 02/17/18 10:32 02/22/18 13:35 02/22/18 13:38 Objective: Vital Signs Temp Pulse Resp BP Pulse Ox 36.6 C 84 16 92/72 L 97 02/22/18 08:00 02/22/18 08:00 02/22/18 08:00 02/22/18 08:00 02/22/18 08:00 Laboratory Results 02/18/18 04:15 02/14/18 15:35 02/21/18 02/22/18 02/23/18 05:59 05:59 05:59 Intake Total 160 Balance 160 PT 13.6 SEC (12.0-15.0) 02/14/18 16:05 INR 1.02 (0.83-1.16) 02/14/18 16:05 Right hand doing well. Left little finger tip is demarcating and essentially mummifying at the tip. ICD10 Worksheet Patient Problems: Problems Problem Status Onset Finger infection Acute Constipation Acute Osteomyelitis of finger of left hand Acute Pneumonia Acute Scleroderma Acute Sepsis Acute Sinus tachycardia Acute Suicidal ideations Acute
[2018-02-22] MEDS ORDERED: ALTEPLASE 2 MG VIAL IVP PRN (13:52)
--- NOTE | 2018-02-22 14:06 | HOSPPROG ---
Hospitalist Progress Note Assessment/Plan: Patient is a 52-year-old female with history of scleroderma and current tobacco abuse with prior finger amputations. She presented emergency room with drainage from her right middle finger and right elbow. 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 POD #5 -have encouraged Renetta that she needs to quit smoking -on Ancef *Left 5th digit /concern for osteo -reviewed her care w Dr Rosenthal, this will likely autoamputate on it's own * pain due to this -resumed her home dose Percocet - ibuprofen * severe protein calorie malnutrition -eating overall well today *GERD -PPI bid *neck pain -C spine shows mod-severe dextroscoliosis of mid-upper C spine, mod subluxation of mid C spine -trial of muscle relaxant and Gabapentin for conservative management -will refer to NSG versus PCP for future management -not c/o neck pain today * history of COPD -albuterol *smoking -smoking cessation -Wellbutrin *depression -resumed previous dosing of Celexa *Cannabis use *homelessness -was in an apt in [facility], said her landlord evicted her and would not give her housing vouchers *Plan: PICC to be placed today, can go to [facility] on IV abx Subjective: Renetta has no specific complaints. Wants her incisions covered on her hands before she eats today. Objective: Vital Signs Temp Pulse Resp BP Pulse Ox 36.6 C 84 16 92/72 L 97 02/22/18 08:00 02/22/18 08:00 02/22/18 08:00 02/22/18 08:00 02/22/18 08:00 Laboratory Results 02/18/18 04:15 02/14/18 15:35 02/21/18 02/22/18 02/23/18 05:59 05:59 05:59 Intake Total 160 Balance 160 PT 13.6 SEC (12.0-15.0) 02/14/18 16:05 INR 1.02 (0.83-1.16) 02/14/18 16:05 - Physical Exam Constitutional: not in pain, chronically ill appearing, cachectic Eyes: PERRL Ears, Nose, Mouth, Throat: hearing normal Cardiovascular: regular rate and rhythym Respiratory: no respiratory distress Skin: warm, other (left little finger tip blackened, red) Musculoskeletal: generalized weakness Neurologic: AAOx3 Psychiatric: anxious ICD10 Worksheet Patient Problems: Problems Problem Status Onset Finger infection Acute Constipation Acute Osteomyelitis of finger of left hand Acute Pneumonia Acute Scleroderma Acute Sepsis Acute Sinus tachycardia Acute Suicidal ideations Acute
--- NOTE | 2018-02-22 15:14 | PDRADPN ---
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 patent upper arm brachial punctured. Severe axillary and subclavian stenosis as evidenced by very difficult catheter and wire passage. Final cath position at downstream innominate. ok to use. Inf/Abcess present in the surg proc area at time of surgery?: No EBL: Minimal Complications: none
--- NOTE | 2018-02-22 15:32 | ASMTCMCOM ---
CM Note CM Note Notes: CM spoke w/ JOSÉ Yepez regarding d/c POC. Pt will need iv ancept for 2 weeks. CM spoke w/ Janell, healthcare corporate account director at [facility] to see if they can accommodate that ivabx. Janell will give CM a call back. CM to follow. Plan: [facility] Date Signed: 02/22/2018 03:31 PM Electronically Signed By:ALONZO Mendoza
[2018-02-23] MEDS: ceFAZolin 2 GM/DEXTROSE 100 ML IV SCH ×3 (00:16→16:26)
[2018-02-23] MEDS: OXYCODONE/APAP 5/325 TAB PO PRN ×4 (00:25→20:37)
[2018-02-23] MEDS: IBUPROFEN 200 MG TAB PO PRN ×2 (07:55→16:26)
[2018-02-23] MEDS: POLYETHYLENE GLYCOL 3350 17 GM PKT PO SCH (07:55)
[2018-02-23] MEDS: buPROPion SR 150 MG TAB PO SCH ×2 (07:57→20:38)
[2018-02-23] MEDS: PANTOPRAZOLE SODIUM 40 MG TAB PO SCH ×2 (07:57→20:39)
[2018-02-23] MEDS: GABAPENTIN 100 MG CAP PO SCH ×3 (07:58→20:40)
[2018-02-23] MEDS: CITALOPRAM 20 MG TAB PO SCH (07:58)
[2018-02-23] MEDS: SENNOSIDES/DOCUSATE SODIUM TAB PO SCH ×2 (07:58→20:39)
[2018-02-23] MEDS: amLODIPine BESYLATE 5 MG TAB PO SCH (08:45)
[2018-02-23] MEDS ORDERED: diphenhydrAMINE 25 MG CAP PO PRN (10:24)
--- NOTE | 2018-02-23 11:28 | PCMIDPN ---
Assessment/Plan: 1. Status post amputation right middle finger secondary to radiographic evidence of osteomyelitis of the proximal phalanx, along with incision and drainage of the right thumb with evidence of infection down to the tendon sheath : Technically would benefit from another 6 days of therapy with Ancef for tenosynovitis of the right thumb. We are still sorting out the details of her discharge. Hopefully she can go to [facility], as she is really refusing to go elsewhere. 02/23/18 11:26 Subjective: Patient is very upset, and tells me that she is refusing to go to [place] [facility] [place]. She tells me"you can just discharge me to the street."I told her that I would sort this out with the case briefer. No diarrhea. Hands are still quite sore. Objective: Ancef 2 g IV q.8 hours day 7 (antibiotics day 8) Vital Signs Temp Pulse Resp BP Pulse Ox 36.4 C 76 18 100/67 96 02/23/18 07:42 02/23/18 07:42 02/23/18 07:42 02/23/18 08:45 02/23/18 07:42 Laboratory Results 02/18/18 04:15 02/14/18 15:35 02/22/18 02/23/18 02/24/18 05:59 05:59 05:59 Intake Total 800 Balance 800 ESR 22 MM/HR (0-30) 02/14/18 15:35 C-Reactive Protein 24.1 mg/L (<10.0) H 02/14/18 15:35 Wound cultures with MSSA - Physical Exam General Appearance: alert, no apparent distress, cachetic Extremities: other (Stump of right middle finger is fairly clean. Right thumb is still quite swollen and tender. Suture in place. Some yellowish fluid superficially, but I could not express this from the incision. Left pinky about the same. Eschar on the distal finger tip) ICD10 Worksheet Patient Problems: Problems Problem Status Onset Finger infection Acute Constipation Acute Osteomyelitis of finger of left hand Acute Pneumonia Acute Scleroderma Acute Sepsis Acute Sinus tachycardia Acute Suicidal ideations Acute
--- NOTE | 2018-02-23 13:47 | HOSPPROG ---
Hospitalist Progress Note Assessment/Plan: Patient is a 52-year-old female with history of scleroderma and current tobacco abuse with prior finger amputations. She presented emergency room with drainage from her right middle finger and right elbow. 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 awaiting to hear from [facility] Subjective: No issues. Concerned about discharge. Pain better. Objective: Vital Signs Temp Pulse Resp BP Pulse Ox 36.4 C 76 18 100/67 96 02/23/18 07:42 02/23/18 07:42 02/23/18 07:42 02/23/18 08:45 02/23/18 07:42 Laboratory Results 02/18/18 04:15 02/14/18 15:35 02/22/18 02/23/18 02/24/18 05:59 05:59 05:59 Intake Total 800 Balance 800 PT 13.6 SEC (12.0-15.0) 02/14/18 16:05 INR 1.02 (0.83-1.16) 02/14/18 16:05 - Physical Exam Constitutional: chronically ill appearing, cachectic Eyes: PERRL, anicteric sclera, EOMI Ears, Nose, Mouth, Throat: moist mucous membranes, hearing normal, ears appear normal Cardiovascular: No JVD, No tachycardia Respiratory: no respiratory distress, no rales or rhonchi Gastrointestinal: No tenderness, No ascites Skin: warm, erythema Musculoskeletal: joint tenderness, pain with ROM, generalized weakness Neurologic: AAOx3 Psychiatric: interacting appropriately, not anxious, not encephalopathic ICD10 Worksheet Patient Problems: Problems Problem Status Onset Pneumonia Acute Scleroderma Acute Sepsis Acute Sinus tachycardia Acute Suicidal ideations Acute Constipation Acute Osteomyelitis of finger of left hand Acute Finger infection Acute
--- NOTE | 2018-02-23 14:54 | ASMTCMCOM ---
CM Note CM Note Notes: Pt is ready for d/c. Left 2 msgs for Puneet at [facility] through their main line. Unable to reach him on the cell phone as the phone mailbox wasn't "set up." Also spoke with Ellen from [facility]. They would accept pt but she is adamantly refusing to go there stating she knew someone who there. [facility] accepted pt however there is no one in admissions there until Sunday. (They may not know she needs 2 weeks of IV Ancef.) Hospitalist informed. Date Signed: 02/23/2018 02:53 PM Electronically Signed By:SHRADDHA Guillory
[2018-02-23] MEDS: oxyCODONE IR 5 MG TAB PO PRN (16:27)
[2018-02-23 20:45] LABS: PLATELET COUNT 420 10^3/uL (150-400)
[2018-02-24] MEDS: ceFAZolin 2 GM/DEXTROSE 100 ML IV SCH ×4 (00:29→23:59)
[2018-02-24] MEDS: CALCIUM CARBONATE 500 MG CHEWABLE TAB PO PRN (01:25)
[2018-02-24] MEDS: oxyCODONE IR 5 MG TAB PO PRN ×2 (02:39→07:37)
[2018-02-24] MEDS: IBUPROFEN 200 MG TAB PO PRN (07:37)
[2018-02-24] MEDS: ONDANSETRON DISINTEGRATING 4 MG TAB PO PRN ×2 (11:06→22:47)
[2018-02-24] MEDS: POLYETHYLENE GLYCOL 3350 17 GM PKT PO SCH (11:07)
[2018-02-24] MEDS: amLODIPine BESYLATE 5 MG TAB PO SCH (11:07)
[2018-02-24] MEDS: GABAPENTIN 100 MG CAP PO SCH ×3 (11:07→20:55)
[2018-02-24] MEDS: PANTOPRAZOLE SODIUM 40 MG TAB PO SCH ×2 (11:08→20:55)
[2018-02-24] MEDS: buPROPion SR 150 MG TAB PO SCH ×2 (11:08→20:55)
[2018-02-24] MEDS: SENNOSIDES/DOCUSATE SODIUM TAB PO SCH ×2 (11:08→20:55)
[2018-02-24] MEDS: CITALOPRAM 20 MG TAB PO SCH (11:11)
--- NOTE | 2018-02-24 11:13 | HOSPPROG ---
Hospitalist Progress Note Assessment/Plan: Patient is a 52-year-old female with history of scleroderma and current tobacco abuse with prior finger amputations. She presented emergency room with drainage from her right middle finger and right elbow. * osteomyelitis of the right 3rd proximal phalanx and R thumb -s/p amputation right middle finger secondary to radiographic evidence of osteomyelitis of the proximal phalanx, along with incision and drainage of the right thumb with evidence of infection down to the tendon sheath -appreciate Infectious Disease seeing her -on Ancef cont 6 more days -PICC in place *Left 5th digit -will likely self amputate * pain due to this -resumed her home dose Percocet -trial of ibuprofen * severe protein calorie malnutrition -supervisor plate pasting to see *GERD -PPI bid *neck pain -C spine shows mod-severe dextroscoliosis of mid-upper C spine, mod subluxation of mid C spine -trial of muscle relaxant and Gabapentin for conservative management -will refer to NSG versus PCP for future management * history of COPD -adventitious BS -Robitussin -albuterol *smoking -smoking cessation -Wellbutrin *depression -resumed previous dosing of Celexa *Cannabis use *homelessness -was in an apt in [facility], said her landlord evicted her and would not give her housing vouchers/ will have CM continue to see *Plan: OT recommends SNF rehab. awaiting to hear from Shasta Gómez Subjective: C/o nausea. Didn't sleep well. No other issues. Objective: Vital Signs Temp Pulse Resp BP Pulse Ox 36.4 C 98 18 110/75 98 02/24/18 07:47 02/24/18 07:47 02/24/18 07:47 02/24/18 11:07 02/24/18 07:47 Laboratory Results 02/23/18 20:30 02/23/18 20:30 02/23/18 02/24/18 02/25/18 05:59 05:59 05:59 Intake Total 800 500 Balance 800 500 PT 13.6 SEC (12.0-15.0) 02/14/18 16:05 INR 1.02 (0.83-1.16) 02/14/18 16:05 - Physical Exam Constitutional: chronically ill appearing, uncomfortable, cachectic Eyes: PERRL, anicteric sclera, EOMI Ears, Nose, Mouth, Throat: moist mucous membranes, hearing normal, ears appear normal Cardiovascular: No JVD, No tachycardia, No edema Respiratory: no respiratory distress, no rales or rhonchi, reduced air movement Gastrointestinal: normoactive bowel sounds, No tenderness, No ascites Skin: warm, no rashes or abrasions, erythema Musculoskeletal: no joint effusions, generalized weakness Neurologic: AAOx3 Psychiatric: interacting appropriately, not anxious, not encephalopathic ICD10 Worksheet Patient Problems: Problems Problem Status Onset Pneumonia Acute Scleroderma Acute Sepsis Acute Sinus tachycardia Acute Suicidal ideations Acute Constipation Acute Osteomyelitis of finger of left hand Acute Finger infection Acute
[2018-02-24] MEDS: OXYCODONE/APAP 5/325 TAB PO PRN ×2 (15:40→19:44)
[2018-02-25] MEDS: OXYCODONE/APAP 5/325 TAB PO PRN ×2 (01:50→12:22)
[2018-02-25] MEDS: CITALOPRAM 20 MG TAB PO SCH (08:44)
[2018-02-25] MEDS: amLODIPine BESYLATE 5 MG TAB PO SCH (08:44)
[2018-02-25] MEDS: GABAPENTIN 100 MG CAP PO SCH (08:44)
[2018-02-25] MEDS: ceFAZolin 2 GM/DEXTROSE 100 ML IV SCH (08:44)
[2018-02-25] MEDS: IBUPROFEN 200 MG TAB PO PRN ×2 (08:46→15:36)
[2018-02-25] MEDS: oxyCODONE IR 5 MG TAB PO PRN (08:46)
[2018-02-25] MEDS: buPROPion SR 150 MG TAB PO SCH (08:46)
[2018-02-25] MEDS: PANTOPRAZOLE SODIUM 40 MG TAB PO SCH (08:47)
[2018-02-25 08:55] VITALS: BP 90/59
[2018-02-25] MEDS: POLYETHYLENE GLYCOL 3350 17 GM PKT PO SCH (09:30)
[2018-02-25] MEDS: SENNOSIDES/DOCUSATE SODIUM TAB PO SCH (09:31)
--- NOTE | 2018-02-25 10:08 | PDIAF ---
- Diagnosis Diagnosis: osteomylitis Code Status: Full Code - Medication Management Discharge Medications: Medications to Continue on Transfer Albuterol [Proventil Inhaler HFA (*)] 1 - 2 puffs IH Q4H PRN 01/02/16 [Last Taken 04/15/17] Acetaminophen [Tylenol 325mg (*)] 650 mg PO Q4HRS PRN #0 tab 04/13/17 [Last Taken Unknown] Calcium Carbonate [Tums 500MG (*)] 500 mg PO TID PRN tab.chew 02/25/18 [Last Taken Unknown] Citalopram [CeleXA 20 MG] 40 mg PO DAILY tab 02/25/18 [Last Taken Unknown] Gabapentin [Neurontin 100 MG (*)] 100 mg PO TID cap 02/25/18 [Last Taken Unknown] Ibuprofen [Motrin (*)] 400 mg PO Q6HRS PRN tab 02/25/18 [Last Taken Unknown] Ondansetron Odt [Zofran Odt 4 mg (*)] 4 mg PO Q4HRS PRN tab 02/25/18 [Last Taken Unknown] Pantoprazole Sodium [Protonix 40mg (*)] 40 mg PO BID tab 02/25/18 [Last Taken Unknown] Polyethylene Glycol 3350 [Miralax 17 gm (*)] 17 gm PO DAILY pkt 02/25/18 [Last Taken Unknown] amLODIPine BESYLATE [Norvasc 5 mg (*)] 5 mg PO DAILY tab 02/25/18 [Last Taken Unknown] buPROPion SR [Wellbutrin 150mg SR (*)] 150 mg PO BID tab 02/25/18 [Last Taken Unknown] ceFAZolin 2 GM/DEXTROSE [Ancef 2 gm] 2 gm IV Q8H bag 02/25/18 [Last Taken Unknown] oxyCODONE IR [Oxycodone Ir (*)] 5 mg PO Q4HRS PRN tab 02/25/18 [Last Taken Unknown] Halfway Antibiotics: ancef 2 gm IV q8 Halfway Antibiotic Stop Date: 03/02/18 Discharge Medications: Refer to the Discharge Home Medication list for PRN reason. PICC Care - Routine: Yes - Orders Services needed: Registered Nurse, Physical Therapy, Occupational Therapy Isolation Type: None Diet Recommendation: no restrictions on diet - Follow Up Care Current Providers and Referrals: NONE *PRIMARY CARE P,. [Primary Care Provider] - As per Instructions
--- NOTE | 2018-02-25 10:36 | ASMTLACE ---
LACE Length of stay for Answers: 7-13 days current admission Acuity / Level of Answers: Yes Care: Did the patient have an inpatient admission? Comorbidities - select Answers: Any tumor (including all that apply lymphoma or leukemia) Chronic pulmonary disease Connective tissue disease Mild liver or renal disease # of Emergency department Answers: 1-2 visits in the last 6 months Score: 18 Date Signed: 02/25/2018 10:35 AM Electronically Signed By:ALONZO Mendoza
[2018-02-25] MEDS: ALBUTEROL 60 PUFFS/8 GM MDI IH PRN (10:52)
--- NOTE | 2018-02-25 11:47 | GDS ---
[f rep st] DISCHARGE SUMMARY DISCHARGE DIAGNOSES: 1. Osteomyelitis of the right 3rd proximal phalanx and right thumb. 2. Left 5th digit compromise. 3. Pain. 4. Severe protein-calorie malnutrition. 5. Gastroesophageal reflux disease. 6. Neck pain. 7. History of chronic obstructive pulmonary disease. 8. Tobacco abuse. 9. Depression. 10. Homeless. CONSULTATIONS: 1. Orthopedics. 2. Infectious Disease. STUDIES AND PROCEDURES PERFORMED: 1. Amputation of the right middle finger, as well as incision and drainage of the right thumb. 2. PICC line placement. PHYSICAL EXAM: GENERAL: The patient is alert. VITAL SIGNS: Afebrile at 36.9, pulse is 82, respira tory rate 16, blood pressure is 90/59, she is saturating 96% on room air. I have seen and evaluated the patient on the day of discharge. HOSPITAL COURSE: The patient is 52-year-old female, who has a long-standing history of scleroderma. She presented to the emergency room with complaints of finger pain. She was evaluated and diagnosed with: 1. Osteomyelitis. During this hospitalization, she had amputation and surgical intervention seconda ry to her osteomyelitis. She was consulted on by Infectious Disease. IV antibiotic therapy has been continued. She will continue Ancef in the outpatient setting with a PICC line. 2. Left 5th digit swelling. This is secondary to the patient's scleroderma as well as tobacco use. No intervention is warranted at this time. 3. Pain. This is improved secondary to the infectious process. 4. Severe protein-calorie malnutrition. She has received dietary consult during this hospitalizatio n. 5. Neck pain. The patient has a moderate subluxation in her C-spine. No surgical intervention is r ecommended at this time. She should follow up outpatient in the future. 6. History of chronic obstructive pulmonary disease. This is being treated with breathing treatment s. This is stable. 7. Tobacco abuse. The patient has been educated with regard to her complications potentially being from tobacco consumption. She is attempting cessation. 8. Depression. She has no signs of active depression during this hospitalization. Her Celexa has b een continued. 9. Homeless. The patient [facility]. DISPOSITION: The patient will be discharged to [facility] for further rehabilitation and management as well as long-term IV antibiotic care. DISCHARGE MEDICATIONS: Please refer to EMR form. The patient has been initiated on Norvasc, Wellbut rin, Ancef, Celexa, Neurontin. I spent greater than 35 minutes in the care, coordination, and management of this patient's dispositi on. /[id number]/MODL
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
== END 2018-02-25 15:40 | DRG 513 ==
LOC: F3E 16:35 → F1N 02-16 09:37
PROVIDERS: ADMIT Internal Medicine; ATTEND Internal Medicine
PROC: 0X6Q0Z2 Detachment at Right Middle Finger, Mid, Open Approach (ICD-10-PCS; principal; 2018-02-16 08:00)
PROC: 02HV33Z Insertion of Infusion Device into Superior Vena Cava, Percutaneous Approach (ICD-10-PCS; 2018-02-22)
DX: M86.141 Other acute osteomyelitis, right hand (principal); E43 Unspecified severe protein-calorie malnutrition; I96 Gangrene, not elsewhere classified; I73.1 Thromboangiitis obliterans [Buerger's disease]; M34.9 Systemic sclerosis, unspecified; K21.9 Gastro-esophageal reflux disease without esophagitis; M54.2 Cervicalgia; J44.9 Chronic obstructive pulmonary disease, unspecified; F12.90 Cannabis use, unspecified, uncomplicated; F32.9 Major depressive disorder, single episode, unspecified; Z86.14 Personal history of Methicillin resistant Staphylococcus aureus infection; Z59.0 Homelessness; Z85.01 Personal history of malignant neoplasm of esophagus; Z89.029 Acquired absence of unspecified finger(s)
CPT/HCPCS: 97165-GO; 97535-GO; C1751; C1769; G8987-GO-CJ; G8988-GO-CI; J0690; J2704; J3010; J3370

== ENCOUNTER 2018-07-22 12:36 | Emergency (ER) | payer OTHER ==
[2018-07-22] MEDS ORDERED: NS 1,000 ML IV ONE ×2 (12:46)
[2018-07-22] MEDS ORDERED: METOCLOPRAMIDE 10 MG/2 ML VIAL IVP ONE (12:48)
--- NOTE | 2018-07-22 13:28 | EDPHY ---
H & P Stated Complaint: n/v/d for 3 days, felt feverish Time Seen by Provider: 07/22/18 12:45 HPI/ROS: This patient has complaint of vomiting and diarrhea explaining that she has had diarrhea for 10 days that his wax and wane in terms of severity-its worst every 30 min she is having loose watery stool. Over the past 3 days she has developed associated vomiting in is now unable tolerate p.o. Intake due to the ongoing nausea and vomiting. She reports associated cough that she has had over the past 3 weeks or 4 weeks. She describes this is a dry cough. She reports associated subjective fevers over the past few days. She started feeling lightheaded while standing over the past 2 days and came in for evaluation due to the combination of the symptoms. ROS: Constitutional: Subjective fevers. Fatigue."Feel sick". HEENT: Coryza for 3 days. No sore throat or other HEENT complaints neuro: She complains of generalized headache similar to prior headaches moderate intensity with no exacerbating factors. She reports brief episode of blurred vision few days ago that has resolved. Pulmonary: Dry cough for 3 days with no significant dyspnea. No hemoptysis. Cardiovascular: Lightheadedness. No chest pain GI: She complains of abdominal pain 8/10 intensity generalized in location points to the umbilicus. She feels radiates slightly to her back. : No dysuria. No hematuria. No flank pain Integumentary: She has scleroderma with chronic skin changes with no acute abnormalities except for complaint of left 3rd toe turning pale easily when it gets cold. She also has some pain to this toe intermittently. 10 point review of symptoms is performed and otherwise negative with exception of pertinent positives and negatives listed in HPI and ROS Source: Patient Exam Limitations: No limitations - Personal History LMP (Females 10-55): Post Menopausal Tetanus Vaccine Date: < 10 years - Medical/Surgical History Hx Asthma: Yes Hx Chronic Respiratory Disease: Yes Hx Diabetes: No Hx Cardiac Disease: No Hx Renal Disease: No Hx Cirrhosis: No Hx Alcoholism: Yes Hx HIV/AIDS: No Hx Splenectomy or Spleen Trauma: No Other PMH: ASTHMA,SCLERODERMA,GERD,CA THROAT,NELI,T&A, emphysema, rheumatoid arth. HX RT ELBOW OSTEOMYELITIS W/SURG, SURG RT THUMB. HEPATITIS C, frostbite, numerous finger amputations - Family History Significant Family History: No pertinent family hx - Social History Smoking Status: Current every day smoker Alcohol Use: None Drug Use: Marijuana - Physical Exam Exam: General Appearance: Cachectic appearing 53-year-old female Alert, no distress. Eyes: Pupils equal and round no pallor or injection. ENT, Mouth: Mucous membranes dry. Respiratory: There are no retractions, rales at the left base. Otherwise clear to auscultation bilaterally Cardiovascular: Tachycardic with no murmur gallop or rub Gastrointestinal: Hypoactive normoactive, soft, diffuse tenderness with no guarding or rebound. Neurological: GCS 15 with no focal deficits. Cranial nerves 2-12 grossly intact Skin: Warm and dry, no rashes. Musculoskeletal: Neck is supple nontender. Extremities are symmetrical, full range of motion. Psychiatric: Patient is briefly tearful but mood and affect are normal otherwise DIFFERENTIAL DIAGNOSIS: After history and physical exam differential diagnosis was considered for viral gastroenteritis, pancreatitis, pneumonia, bronchitis, dehydration, UTI Constitutional: Initial Vital Signs Temperature (C) 36.8 C 07/22/18 12:48 Heart Rate 104 H 07/22/18 12:48 Respiratory Rate 18 07/22/18 12:48 Blood Pressure 96/73 L 07/22/18 12:48 O2 Sat (%) 94 07/22/18 12:48 O2 Delivery Mode Room Air Allergies/Adverse Reactions: No Known Allergies Allergy (Verified 07/22/18 12:47) Home Medications: Medication Instructions Recorded Albuterol [Proventil Inhaler HFA 1 - 2 puffs IH Q4H PRN 01/02/16 (*)] Acetaminophen [Tylenol 325mg (*)] 650 mg PO Q4HRS PRN #0 tab 04/13/17 Citalopram Hydrobromide 40 mg PO DAILY 05/01/18 [Citalopram HBr] Gabapentin [Neurontin 300 MG (*)] 300 mg PO HS 05/01/18 Omeprazole 40 mg PO DAILY 05/01/18 traZODone [traZODONE 50MG (*)] 50 mg PO HS PRN 05/01/18 Albuterol Hfa Anes Only [Proair 2 puffs IH Q4 PRN #1 mdi 07/22/18 Hfa Icu (*)] Promethazine HCl [Phenergan 25mg 25 mg PO Q6 PRN #4 tab 07/22/18 (*)] Promethazine HCl [Phenergan 50mg 50 mg MS Q6 PRN #4 suppr 07/22/18 supp (*)] Medical Decision Making - Diagnostics Imaging Results: Two view chest x-ray: Mild airway disease otherwise normal by my interpretation Imaging: I viewed and interpreted images myself ED Course/Re-evaluation: IV normal saline bolus x2 L Reglan and Benadryl IV with partial relief of belly cramping down to mild discomfort At 1:45 p.m. She also has partial relief of nausea but still would like something in addition for nausea. Her headache persisted moderate severity similar to prior headaches 4 mg of Zofran and 15 of Toradol given with relief of symptoms. The patient is POC CBC, CMP and a urine micro are all normal. Discussion: Patient presents with findings consistent with gastroenteritis with normal labs. She also has findings consistent with a viral bronchitis without evidence of pneumonia or other complicating factors. Patient improved with treatment here with antiemetics and Toradol. Her headache also resolved and is consistent with a tension headache. No clinical findings that would suggest [employer] infection, intracranial bleed or other red flag findings. I counseled her regarding viral bronchitis. Will treat her with albuterol inhaler , Zofran Imodium as needed. She understands need to return emergency department should she develop any worsening symptoms despite the treatment plan. - Data Points Medications Given: Discontinued Medications Acetaminophen (Tylenol) 1,000 mg PO EDNOW ONE Stop: 07/22/18 14:30 Last Admin: 07/22/18 14:37 Dose: 1,000 mg Diphenhydramine HCl (Benadryl Injection) 25 mg IVP EDNOW ONE Stop: 07/22/18 12:49 Last Admin: 07/22/18 13:25 Dose: 25 mg Sodium Chloride (Ns) 1,000 mls @ 0 mls/hr IV EDNOW ONE; Wide Open PRN Reason: Protocol Stop: 07/22/18 12:47 Last Admin: 07/22/18 13:24 Dose: 1,000 mls Sodium Chloride (Ns) 1,000 mls @ 0 mls/hr IV EDNOW ONE; Wide Open PRN Reason: Protocol Stop: 07/22/18 12:47 Last Admin: 07/22/18 13:58 Dose: 1,000 mls Ketorolac Tromethamine (Toradol) 15 mg IVP EDNOW ONE Stop: 07/22/18 13:46 Last Admin: 07/22/18 13:59 Dose: 15 mg Metoclopramide HCl (Reglan Injection) 5 mg IVP EDNOW ONE Stop: 07/22/18 12:49 Last Admin: 07/22/18 13:26 Dose: 5 mg Ondansetron HCl (Zofran) 4 mg IVP EDNOW ONE Stop: 07/22/18 13:45 Last Admin: 07/22/18 13:58 Dose: 4 mg Point of Care Test Results: CBC CBC Collection Date 07/22/18 CBC Collection Time 13:08 WBC 6.1 RBC 4.9 HGB 13.4 HCT 40.8 PLT 450 Neut # 3.7 Neut 59.1 LYMPH # 1.9 LYMPH 31.9 Other WBC # 0.5 Other WBC 9.0 MCV 81.8 Chemistry 07/22/18 13:12 POC Sodium 144 mEq/L mEq/L (135-145) POC Potassium 3.9 mEq/L mEq/L (3.3-5.0) POC Chloride 109.0 mEq/L mEq/L (97-110) POC Total CO2 24 mEq/L mEq/L (22-31) POC BUN 9 mg/dL mg/dL (7-23) POC Creatinine 0.7 mg/dL mg/dL (0.6-1.0) POC Glucose 107 mg/dL H mg/dL (70-100) POC Calcium 9.3 mg/dL mg/dL (8.5-10.4) POC Total Bilirubin 0.5 mg/dL mg/dL (0.1-1.4) POC AST 24 IU/L IU/L (14-46) POC ALT 22 IU/L IU/L (9-52) POC Alk Phosphatase 109 IU/L IU/L (38-126) POC Total Protein 7.4 g/dL g/dL (6.3-8.2) POC Albumin 3.5 g/dL g/dL (3.5-5.0) Urine Dip Collection Date 07/22/18 Collection Time 12:50 Specific Dinosaur (1.002-1.030) 1.030 PH (5.0-7.5) 5.5 Leukocytes (Negative) Negative Nitrites (Negative) Negative Protein (Negative) Trace Glucose (Negative) Negative Urobilnogen (0.2-1.0 EU) 0.2 Bilirubin (Negative) Test Not Performed Blood (Negative) Negative Departure - Departure Disposition: Home, Routine, Self-Care Clinical Impression: Gastroenteritis, Dehydration, Viral bronchitis, Tension headache Condition: Good Instructions: Tension Headache (ED), Gastroenteritis (ED), Acute Bronchitis (ED ) Additional Instructions: Diagnoses: Gastroenteritis 2. Dehydration 3. Tension headache 4. Viral Bronchitis Plan: Drink plenty fluids Light diet to feel improved Phenergan pills for nausea, suppositories for vomiting if needed Imodium [id number] for diarrhea Albuterol inhaler for cough, wheeze or shortness of breath needed Tylenol for headache if needed Follow up with primary care physician Return emergency department for any significant worsening despite treatment plan. Referrals: NONE *PRIMARY CARE P,. [Primary Care Provider] - As per Instructions Ntiin Montiel MD [Medical Doctor] - As per Instructions Prescriptions: Albuterol Hfa Anes Only [Proair Hfa Icu (*)] 2 puffs IH Q4 PRN #1 mdi PRN Reason: Wheezing Promethazine HCl [Phenergan 25mg (*)] 25 mg PO Q6 PRN #4 tab PRN Reason: nausea Promethazine HCl [Phenergan 50mg supp (*)] 50 mg MS Q6 PRN #4 suppr PRN Reason: vomiting
[2018-07-22] MEDS ORDERED: ONDANSETRON 4 MG/2 ML VIAL IVP ONE (13:44)
[2018-07-22] MEDS ORDERED: KETOROLAC 15 MG/1 ML SDV IVP ONE (13:45)
[2018-07-22] MEDS ORDERED: ACETAMINOPHEN 500 MG TAB PO ONE (14:29)
[2018-07-22 15:55] VITALS: BP 94/60
== END 2018-07-22 15:06 | disposition home or self-care (01) ==
LOC: CED 12:36
DX: K52.9 Noninfective gastroenteritis and colitis, unspecified (principal); J20.8 Acute bronchitis due to other specified organisms; E86.0 Dehydration; B19.20 Unspecified viral hepatitis C without hepatic coma; F17.200 Nicotine dependence, unspecified, uncomplicated
CPT/HCPCS: 71046; 96361; 96374; 96375; 99284; J1200; J1885; J2405; J2765; 80053-PO

== ENCOUNTER 2018-08-11 19:06 | Emergency (ER) | payer OTHER ==
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
[2018-08-11 20:43] VITALS: BP 107/75
== END 2018-08-11 20:48 | disposition home or self-care (01) ==
LOC: EDUNIT#
DX: T76.21XA Adult sexual abuse, suspected, initial encounter (principal); R06.02 Shortness of breath; K21.9 Gastro-esophageal reflux disease without esophagitis; Z85.01 Personal history of malignant neoplasm of esophagus; Z89.022 Acquired absence of left finger(s); Z89.021 Acquired absence of right finger(s)

== ENCOUNTER 2018-10-12 14:58 | Inpatient (IN) | payer OTHER ==
[2018-10-12] MEDS ORDERED: NS 1,000 ML IV ONE ×2 (15:43→16:58)
--- NOTE | 2018-10-12 15:43 | EDPHY ---
H & P Stated Complaint: abd pain/diarrhea Time Seen by Provider: 10/12/18 15:43 HPI/ROS: HPI CHIEF COMPLAINT: Multiple complaints HISTORY OF PRESENT ILLNESS: 53-year-old female, homeless presents emergency room with abdominal pain and chest pain. Patient reports that her main complaint is abdominal pain with watery diarrhea nonbloody. States this started few days ago with worsening diarrhea watery nonbloody. No fever however complains of abdominal distention and diffuse abdominal pain. She also reports that she has had some chest pain describes sharp stabbing across her chest. Now gone but had early this morning and yesterday. She does smoke cigarettes. She denies fever. Reports a cough nonproductive. Denies significant shortness of breath. Past Medical History: Significant medical history for nausea vomiting diarrhea , enterocolitis, scleroderma, rheumatoid arthritis, chronic pain, GERD, Boles' s esophagus, homelessness. Past Surgical History: Multiple finger amputations from frostbite Social History: Smokes tobacco daily. Homeless. Denies drugs or alcohol. Family History: Noncontributory ROS REVIEW OF SYSTEMS: 10 Systems were reviewed and negative with the exception of the elements mentioned in the history of present illness. Exam Constitutional nontoxic, triage nursing summary reviewed, vital signs reviewed , awake/alert. Vital signs stable Eyes normal conjunctivae and sclera, EOMI, PERRLA. HENT normal inspection, atraumatic, moist mucus membranes, no epistaxis, neck supple/ no meningismus, no raccoon eyes. Respiratory clear to auscultation bilaterally, normal breath sounds, no respiratory distress, no wheezing. Cardiovascular rate normal, regular rhythm, no murmur, no edema, distal pulses normal. Gastrointestinal no significant tenderness on exam no rebound, no guarding, normal bowel sounds, no distension, no pulsatile mass. Genitourinary no CVA tenderness. Musculoskeletal no midline vertebral tenderness, full range of motion, no calf swelling, no tenderness of extremities, no meningismus, good pulses, neurovascularly intact. Skin pink, warm, & dry, no rash, skin atraumatic. Neurologic awake, alert and oriented x 3, AAOx3, moves all 4 extremities equally, motor intact, sensory intact, CN II-XII intact, normal cerebellar, normal vision, normal speech. Psychiatric normal mood/affect. Heme/Lymph/Immune no lymphadenopathy. Differential Diagnosis: Differential diagnosis includes but is not limited to and in no particular order: Bowel obstruction, appendicitis, gallbladder disease, diverticulitis, colitis, enteritis, perforated viscus, gastritis, GERD , esophagitis, urinary tract infection, pyelonephritis, kidney stones Differential diagnosis includes but is not limited to: ACS, atypical chest pain , pneumothorax, pneumonia, pulmonary embolism, aortic dissection, congestive heart failure, tumor, musculoskeletal pain, esophageal pain, GERD, peptic ulcer disease, pancreatitis Medical Decision Making: Plan for this patient IV establishment, IV fluid bolus , basic blood work, EKG, troponin, chest x-ray, possible CT scan abdomen pelvis with IV contrast, urinalysis re-evaluate Re-evaluation: EKG interpretation by me on record in [facility] [facility] [employer] system. Impression time of EKG 1536, sinus rhythm rate of 90 ST depression inferior leads however this is unchanged from her previous EKG dated 04/06/2017.[ Patient has a positive D-dimer. In the setting of chest pain pleuritic will proceed with CT angiogram of the chest. Additionally the patient has abdominal pain elevated lactic will proceed with CT abdomen pelvis with IV contrast. CT scan angiogram chest negative for pulmonary embolism called to me by Dr. Sims CT scan abdomen pelvis with IV contrast negative for acute inflammatory process. Called to me by Dr. Sims. Trop 0.00 2150: Patient re-evaluated resting comfortably however she does report to me she had some left-sided chest discomfort again. It is now gone. Describes it as pressure. Her EKGs have been similar to her previous EKGs without acute ischemia CT angiogram negative CT scan abdomen pelvis negative Troponin negative However given patient's cardiovascular risk factors, and complex medical history plan will be for observing overnight for chest pain. The patient has the following risk factors including tobacco use, her age, she is homeless, rheumatoid arthritis inside [facility]. I spoke with the hospitalist service they agree for hospital admission. Dr. Acevedo. Currently at this time 10:34 p.m. Patient is chest pain-free. Full-dose aspirin was given. HEART Score for Major Cardiac Events from [email or web address] on 10/12/2018 All calculations should be rechecked by clinician prior to use RESULT SUMMARY: 5 points Moderate Score (4-6 points) Risk of MACE of 12-16.6%. If EKG is highly suspicious, many experts recommend further workup and admission even with a low HEART Score. INPUTS: History > 1 = Moderately suspicious EKG > 2 = Significant ST deviation Age > 1 = 53 Risk factors > 1 = 1-2 risk factors Initial troponin > 0 = normal limit Source: Patient - Personal History LMP (Females 10-55): Post Menopausal Current Tetanus/Diphtheria Vaccine: Yes Tetanus Vaccine Date: < 10 years - Medical/Surgical History Hx Asthma: Yes Hx Chronic Respiratory Disease: Yes Hx Diabetes: No Hx Cardiac Disease: No Hx Renal Disease: No Hx Cirrhosis: No Hx Alcoholism: Yes Hx HIV/AIDS: No Hx Splenectomy or Spleen Trauma: No Other PMH: ASTHMA,SCLERODERMA,GERD,CA THROAT,NELI,T&A, emphysema, rheumatoid arth. HX RT ELBOW OSTEOMYELITIS W/SURG, SURG RT THUMB. HEPATITIS C, frostbite, numerous finger amputations - Social History Smoking Status: Current every day smoker Constitutional: Initial Vital Signs Temperature (C) 36.5 C 10/12/18 15:15 Heart Rate 89 10/12/18 15:15 Respiratory Rate 20 10/12/18 15:15 Blood Pressure 114/90 H 10/12/18 15:15 O2 Delivery Mode Room Air Allergies/Adverse Reactions: No Known Allergies Allergy (Verified 10/12/18 15:18) Home Medications: Medication Instructions Recorded Albuterol [Proventil Inhaler HFA 1 - 2 puffs IH Q4H PRN 01/02/16 (*)] Gabapentin [Neurontin 300 MG (*)] 300 mg PO HS 05/01/18 Omeprazole 40 mg PO DAILY 05/01/18 Citalopram [CeleXA] 40 mg PO DAILY 10/12/18 traZODone [traZODONE 50MG (*)] 50 mg PO HS 10/13/18 Medical Decision Making - Data Points Laboratory Results: Laboratory Results 10/12/18 16:36 10/12/18 16:36 Microbiology Results: MICROBIOLOGY 10/12/18 15:55 Stool Gastrointestinal Tract Panel (PCR) - Final E.coli Enteropathogenic(Epec) Medications Given: Acetaminophen (Tylenol) 650 mg PO Q4HRS PRN PRN Reason: Pain, Mild/Fever, Can Take PO Stop: 04/10/19 22:52 Last Admin: 10/13/18 20:01 Dose: 650 mg Albuterol (Proventil Inhaler) 2 puffs IH Q4H PRN PRN Reason: Wheezing Stop: 04/11/19 09:27 Last Admin: 10/13/18 11:24 Dose: 2 puffs Citalopram Hydrobromide (Celexa) 40 mg PO DAILY JAMEY Stop: 04/11/19 08:59 Last Admin: 10/13/18 11:24 Dose: 40 mg Enoxaparin Sodium (Lovenox) 40 mg SC DAILY JAMEY Stop: 04/11/19 08:59 Last Admin: 10/13/18 11:24 Dose: 40 mg Gabapentin (Neurontin) 300 mg PO HS JAMEY Stop: 04/11/19 20:59 Last Admin: 10/13/18 20:02 Dose: 300 mg Sodium Chloride (Ns) 1,000 mls @ 100 mls/hr IV CONT JAMEY Stop: 04/11/19 15:14 Last Admin: 10/13/18 23:21 Dose: 1,000 mls Nitroglycerin (Nitrostat) 0.4 mg SL Q5M PRN PRN Reason: Chest Pain Stop: 04/10/19 22:54 Last Admin: 10/13/18 03:27 Dose: 0.4 mg Pantoprazole Sodium (Protonix) 40 mg PO DAILY [facility] Stop: 04/11/19 09:44 Last Admin: 10/13/18 11:24 Dose: 40 mg Trazodone HCl (Trazodone) 50 mg PO HS JAMEY Stop: 04/11/19 20:59 Last Admin: 10/13/18 20:02 Dose: 50 mg Discontinued Medications Acetaminophen (Tylenol) 1,000 mg PO EDNOW ONE Stop: 10/12/18 17:09 Last Admin: 10/12/18 17:12 Dose: 1,000 mg Aspirin Buffered (Aspirin Ec) 325 mg PO EDNOW ONE Stop: 10/12/18 21:51 Last Admin: 10/12/18 21:59 Dose: 325 mg Sodium Chloride (Ns) 1,000 mls @ 0 mls/hr IV EDNOW ONE; Wide Open PRN Reason: Protocol Stop: 10/12/18 15:44 Last Admin: 10/12/18 16:32 Dose: 1,000 mls Sodium Chloride (Ns) 1,000 mls @ 0 mls/hr IV ONCE ONE PRN Reason: Wide Open Stop: 10/12/18 16:59 Last Admin: 10/12/18 17:10 Dose: 1,000 mls Sodium Chloride (Ns) 1,000 mls @ 100 mls/hr IV CONT JAMEY Stop: 04/10/19 22:59 Last Admin: 10/13/18 13:13 Dose: 1,000 mls Point of Care Test Results: Chemistry 10/12/18 10/12/18 10/12/18 18:33 17:03 16:40 POC Troponin I 0.00 ng/mL ng/mL 0.08 ng/mL ng/mL TNP (0.00-0.08) (0.00-0.08) Departure - Departure Disposition: [facility] Inpatient Acute Clinical Impression: Chest pain Qualifiers: Chest pain type: unspecified Qualified Code(s): R07.9 - Chest pain, unspecified Condition: Fair
[2018-10-12 16:50] LABS: PLATELET COUNT 333 10^3/uL (150-400)
[2018-10-12 16:54] LABS: INR 0.89 (0.83-1.16); PROTIME(PATIENT) 12.3 SEC (12.0-15.0)
[2018-10-12] MEDS ORDERED: ACETAMINOPHEN 500 MG TAB PO ONE (17:08)
[2018-10-12] MEDS ORDERED: IOPAMIDOL (ISOVUE 370) 100 ML BTL IV ONE (17:57)
[2018-10-12] MEDS ORDERED: ASPIRIN EC 325 MG TAB PO ONE (21:50)
[2018-10-12] MEDS ORDERED: ONDANSETRON 4 MG/2 ML VIAL IVP PRN (22:53)
[2018-10-12] MEDS ORDERED: ONDANSETRON DISINTEGRATING 4 MG TAB PO PRN (22:53)
[2018-10-12] MEDS ORDERED: NITROGLYCERIN 0.4 MG BTL SL PRN (22:55)
--- NOTE | 2018-10-13 | PDGENHP ---
History and Physical - Chief Complaint Chest pain - History of Present Illness 53 yo F w/ hx of scleroderma and RA presents with chest pain. The patient tells me she has had several episodes of chest pain over the last few days. These have been similar in nature. She describes 8/10 central chest pressure radiation upwards and to her L arm. These episodes are associated with shortness of breath and diaphoresis. She has no prior cardiac history but tells me she has been under a lot of stress lately. Evaluation in the ED notable for unchanged ECG and negative troponin. CT C/A/P negative for PE and with possible colonic ileus. She is chest pain free at the time of my evaluation. Case discussed with ED physician Dr. Herr; records reviewed and summarized above. History Information - Allergies/Home Medication List Allergies/Adverse Reactions: No Known Allergies Allergy (Verified 10/12/18 15:18) Home Medications: Albuterol [Proventil Inhaler HFA (*)] 1 - 2 puffs IH Q4H PRN 01/02/16 [Last Taken 04/15/17] Gabapentin [Neurontin 300 MG (*)] 300 mg PO HS 05/01/18 [Last Taken 10/11/18] Omeprazole 40 mg PO DAILY 05/01/18 [Last Taken 10/11/18] Citalopram [CeleXA] 40 mg PO DAILY 10/12/18 [Last Taken 10/11/18] I have personally reviewed and updated: family history, medical history - Past Medical History Additional medical history: Asthma, scleroderma, rheumatoid arthritis, chronic pain, depression, GERD, Boles's esophagus with chronic aspiration. History of right elbow osteomyelitis, HCV. Patient reports recent long-term antibiotic therapy through PICC for osteomyelitis in her fingers. - Surgical History Additional surgical history: Multiple amputations of fingers related to her scleroderma, osteo and frostbite. Cholecystectomy,. Tonsillectomy adenoidectomy. Right elbow washout for osteo. - Family History Additional family history: Patient denies any family history of autoimmune disorders. No other medical issues reported. - Social History Smoking Status: Current every day smoker Review of Systems Review of Systems: ROS: 10pt was reviewed & negative except for what was stated in HPI & below Physical Exam Physical Exam: Temp Pulse Resp BP Pulse Ox 36.5 C 72 16 134/83 H 96 10/12/18 18:00 01/19/19 23:31 10/12/18 23:31 10/12/18 23:31 10/12/18 23:31 Constitutional: not in pain, chronically ill appearing Eyes: PERRL, EOMI Ears, Nose, Mouth, Throat: moist mucous membranes, no oral mucosal ulcers Cardiovascular: regular rate and rhythym, no murmur, rub, or gallop Respiratory: no respiratory distress, clear to auscultation Gastrointestinal: normoactive bowel sounds, soft, non-tender abdomen Skin: warm, normal color Musculoskeletal: full muscle strength, other (S/p multiple finger amputations) Neurologic: AAOx3, CN II-XII Intact Psychiatric: interacting appropriately, not anxious Lab Data & Imaging Review 10/12/18 16:36 10/12/18 16:36 WBC 6.27 10^3/uL (3.80-9.50) 10/12/18 16:36 RBC 5.35 10^6/uL (4.18-5.33) H 10/12/18 16:36 Hgb 13.5 g/dL (12.6-16.3) 10/12/18 16:36 Hct 42.4 % (38.0-47.0) 10/12/18 16:36 MCV 79.3 fL (81.5-99.8) L 10/12/18 16:36 MCH 25.2 pg (27.9-34.1) L 10/12/18 16:36 MCHC 31.8 g/dL (32.4-36.7) L 10/12/18 16:36 RDW 17.2 % (11.5-15.2) H 10/12/18 16:36 Plt Count 333 10^3/uL (150-400) 10/12/18 16:36 MPV 9.3 fL (8.7-11.7) 10/12/18 16:36 Neut % (Auto) 58.3 % (39.3-74.2) 10/12/18 16:36 Lymph % (Auto) 29.5 % (15.0-45.0) 10/12/18 16:36 Pender % (Auto) 8.1 % (4.5-13.0) 10/12/18 16:36 Eos % (Auto) 2.9 % (0.6-7.6) 10/12/18 16:36 Baso % (Auto) 0.6 % (0.3-1.7) 10/12/18 16:36 Nucleat RBC Rel Count 0.0 % (0.0-0.2) 10/12/18 16:36 Absolute Neuts (auto) 3.65 10^3/uL (1.70-6.50) 10/12/18 16:36 Absolute Lymphs (auto) 1.85 10^3/uL (1.00-3.00) 10/12/18 16:36 Absolute Monos (auto) 0.51 10^3/uL (0.30-0.80) 10/12/18 16:36 Absolute Eos (auto) 0.18 10^3/uL (0.03-0.40) 10/12/18 16:36 Absolute Basos (auto) 0.04 10^3/uL (0.02-0.10) 10/12/18 16:36 Absolute Nucleated RBC 0.00 10^3/uL (0-0.01) 10/12/18 16:36 Immature Gran % 0.6 % (0.0-1.1) 10/12/18 16:36 Immature Gran # 0.04 10^3/uL (0.00-0.10) 10/12/18 16:36 PT 12.3 SEC (12.0-15.0) 10/12/18 16:36 INR 0.89 (0.83-1.16) 10/12/18 16:36 APTT 24.6 SEC (23.0-38.0) 10/12/18 16:36 D-Dimer 0.68 ug/mLFEU (0.00-0.50) H 10/12/18 16:36 VBG Lactic Acid 1.5 mmol/L (0.7-2.1) 10/12/18 19:00 Sodium 141 mEq/L (135-145) 10/12/18 16:36 Potassium 4.1 mEq/L (3.5-5.2) 10/12/18 16:36 Chloride 110 mEq/L (97-110) 10/12/18 16:36 Carbon Dioxide 22 mEq/l (22-31) 10/12/18 16:36 Anion Gap 9 mEq/L (6-14) 10/12/18 16:36 BUN 7 mg/dL (7-23) 10/12/18 16:36 Creatinine 0.5 mg/dL (0.6-1.0) L 10/12/18 16:36 Estimated GFR > 60 10/12/18 16:36 Glucose 78 mg/dL (70-100) 10/12/18 16:36 Calcium 9.0 mg/dL (8.5-10.4) 10/12/18 16:36 Total Bilirubin 0.3 mg/dL (0.1-1.4) 10/12/18 16:36 Conjugated Bilirubin 0.3 mg/dL (0.0-0.5) 10/12/18 16:36 Unconjugated Bilirubin 0.0 mg/dL (0.0-1.1) 10/12/18 16:36 AST 25 IU/L (14-46) 10/12/18 16:36 ALT 27 IU/L (9-52) 10/12/18 16:36 Alkaline Phosphatase 122 IU/L (38-126) 10/12/18 16:36 POC Troponin I 0.00 ng/mL (0.00-0.08) 10/12/18 18:33 Total Protein 7.3 g/dL (6.3-8.2) 10/12/18 16:36 Albumin 4.1 g/dL (3.5-5.0) 10/12/18 16:36 Lipase 95 IU/L (23-300) 10/12/18 16:36 Urine Color PALE YELLOW 10/12/18 15:55 Urine Appearance CLEAR 10/12/18 15:55 Urine pH 5.0 (5.0-7.5) 10/12/18 15:55 Ur Specific Ashby 1.009 (1.002-1.030) 10/12/18 15:55 Urine Protein NEGATIVE (NEGATIVE) 10/12/18 15:55 Urine Ketones NEGATIVE (NEGATIVE) 10/12/18 15:55 Urine Blood NEGATIVE (NEGATIVE) 10/12/18 15:55 Urine Nitrate NEGATIVE (NEGATIVE) 10/12/18 15:55 Urine Bilirubin NEGATIVE (NEGATIVE) 10/12/18 15:55 Urine Urobilinogen NEGATIVE EU (0.2-1.0) 10/12/18 15:55 Ur Leukocyte Esterase NEGATIVE (NEGATIVE) 10/12/18 15:55 Urine Glucose NEGATIVE (NEGATIVE) 10/12/18 15:55 Urine Opiates Screen NEGATIVE (NEGATIVE) 10/12/18 15:55 Urine Barbiturates NEGATIVE (NEGATIVE) 10/12/18 15:55 Ur Phencyclidine Scrn NEGATIVE (NEGATIVE) 10/12/18 15:55 Ur Amphetamine Screen NEGATIVE (NEGATIVE) 10/12/18 15:55 U Benzodiazepines Scrn NEGATIVE (NEGATIVE) 10/12/18 15:55 Urine Cocaine Screen NEGATIVE (NEGATIVE) 10/12/18 15:55 U Marijuana (THC) Screen NON-NEGATIVE (NEGATIVE) H 10/12/18 15:55 Imaging Review: Imaging Impressions Chest X-Ray 10/12/18 15:54 Impression: Stable x3 months. Nothing acute identified. Abdomen CT 10/12/18 17:46 Impression: Moderate distention of the colon throughout, suggestive of colonic ileus. Results called to Dr. Estuardo Calderon at the time of the examination. Chest/Thorax CTA 10/12/18 17:46 Impression: 1. Negative CT examination of the chest for acute pulmonary thromboembolic disease. 2. Multiple areas of parenchymal scarring right upper lobe. Underlying centrilobular emphysema. Results called to Dr. Lio Herr at the time of the interpretation. Visualized and Interpreted EKG results: Yes EKG Interpretation: Positive for: normal sinsus rhythm, ST depression (V4-V6, similar to 04/09 comparison) Assessment & Plan Assessment: 53 yo F w/ hx of scleroderma and RA presents with chest pain. Plan: 1. Chest pain - Multiple episodes over the last few days; HEART score of 5 denoting need for further evaluation. Noting hx of scleroderma and prior esophageal pathology pain could be GI related but cardiac evaluation seems prudent noting risk factors. - Admit to PCU for observation - Monitor on telemetry, trend cardiac enzymes - NTG, ECG PRN for chest pain - Treadmill exercise stress ordered for the morning 2. RA, Scleroderma - Not currently on medication for this 3. Depression - Continue Celexa. 4. GERD - Continue PPI. 5. Underweight - BMI of 16. Diet - NPO @ [place] Code - Full Ppx - LMWH Dispo - Admit under observation status
[2018-10-13] MEDS: ACETAMINOPHEN 325 MG TAB PO PRN ×3 (00:46→20:01)
[2018-10-13] MEDS: NS 1,000 ML IV SCH ×2 (01:10→13:13)
[2018-10-13 04:22] LABS: PLATELET COUNT 331 10^3/uL (150-400)
[2018-10-13] MEDS: ENOXAPARIN 40 MG/0.4 ML SYR SC SCH (11:24)
[2018-10-13] MEDS: PANTOPRAZOLE SODIUM 40 MG TAB PO SCH (11:24)
[2018-10-13] MEDS: ALBUTEROL 60 PUFFS/8 GM MDI IH PRN (11:24)
[2018-10-13] MEDS: CITALOPRAM 20 MG TAB PO SCH (11:24)
--- NOTE | 2018-10-13 13:23 | ASMTCAGE ---
CAGE Do you feel you ought to Answers: No cut down on your drinking or drug use? Do people annoy you by Answers: No criticizing your drinking or drug use? Do you feel guilty about Answers: Yes your drinking or drug use? Do you drink or use drugs Answers: No first thing in the morning ([employer])? Additional Comments pt reports consuming 2 grams of marijuana /week. Does not want resources. Date Signed: 10/13/2018 01:23 PM Electronically Signed By:Nelda Toro RN
--- NOTE | 2018-10-13 13:29 | ASMTCMCOM ---
CM Note CM Note Notes: 10/13/2018 Case Management Note Met w/pt. Pt admitted for Chest Pain. Completed CAGE. Please see case management d/c notes for February 2018 and April 2018 for pt history. Case Management has worked extensively assisting pt with placement in the past, ultimately securing placement at [facility]. Pt left [facility] b/c of "issues with my debit card". Pt has a storage unit on [address] [place]. Pt has stayed at [facility], [facility] and [facility]. Pt has a sister Oneyda in [place] and Brother Adolfo in [place]. Pt primary care is through [facility] in [place]. "I think it's Dr. Langford". 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 Pt is unaware of status of application. There are no case management needs for discharge. Pt is well connected to resources in the community. There are no therapy evals ordered at this time, pt is ambulating without difficulty in her room. Case Management d/c poc: to snf with follow up as directed. Case Management available if needs change. Date Signed: 10/13/2018 01:28 PM Electronically Signed By:Nelda Toro RN
--- NOTE | 2018-10-13 15:09 | HOSPPROG ---
Hospitalist Progress Note Assessment/Plan: 53 yo F w/ hx of scleroderma and RA presents with chest pain. 1. Chest pain: HEART score of 5 denoting need for further evaluation. Coronary disease on differential with GI pathology (noting h/o scleroderma) as well as costochondritis but cardiac evaluation seems prudent noting risk factors. Troponins negative, ECG without acute changes. - Discussed with Dr Thomas of cardiology, plan for lexiscan stress w/NM given baseline ECG abnormalities - Unfortunately, unable to obtain above test today, will plan for tomorrow and patient agreeable - Continue telemetry 2. Diarrhea: GI PCR + for EPEC - No indication for antibiotics unless severe, which it is not at present - Continue IVF 3. RA, Scleroderma: Not currently on medication for this 4. Depression: Continue Celexa. 5. GERD: Continue PPI. 6. Underweight: BMI of 16. 7. Homelessness: Has previously been discharged to long-term care facility. Currently living with friends. 8. Emphysema: Noted on CT. No acute exacerbation, on room air. 9. Lactic acidosis: Resolved with IVF. 10. H/o finger osteomyelitis and amputations: Related to scleroderma. No current signs of infection. Diet - cardiac Code - Full Ppx - LMWH Dispo - Switch to inpatient, unsafe to discharge prior to ruling out cardiac disease. Subjective: Chest pain she had yesterday essentially resolved but now has some pain/tenderness on left chest when she pushes it. Yesterday abdomen felt bloated, now having some loose stools. No blood. Objective: Vital Signs Temp Pulse Resp BP Pulse Ox 35.8 C L 85 13 111/75 97 10/13/18 03:46 10/13/18 11:13 10/13/18 11:13 10/13/18 11:13 10/13/18 11:13 Laboratory Results 10/13/18 03:30 10/13/18 03:30 10/12/18 10/13/18 10/14/18 05:59 05:59 05:59 Intake Total 2732 432 Balance 2732 432 PT 12.3 SEC (12.0-15.0) 10/12/18 16:36 INR 0.89 (0.83-1.16) 10/12/18 16:36 - Physical Exam Constitutional: no apparent distress, other (thin) Eyes: PERRL, anicteric sclera, EOMI Ears, Nose, Mouth, Throat: moist mucous membranes, hearing normal, ears appear normal, no oral mucosal ulcers Cardiovascular: regular rate and rhythym, no murmur, rub, or gallop, No edema Respiratory: no respiratory distress, no rales or rhonchi, clear to auscultation Gastrointestinal: normoactive bowel sounds, soft, non-tender abdomen, no palpable masses Genitourinary: no bladder fullness, no bladder tenderness, no renal bruits Skin: no rashes or abrasions, no fluctuance, no induration Musculoskeletal: other (several bilateral finger amputations, tenderness to palpation over left chest wall) Neurologic: AAOx3 Psychiatric: interacting appropriately, not anxious, not encephalopathic, thought process linear ICD10 Worksheet Patient Problems: Problems Problem Status Onset Chest pain Acute Constipation Acute Enterocolitis Acute Finger infection Acute Osteomyelitis of finger of left hand Acute Pneumonia Acute Scleroderma Acute Sepsis Acute Sinus tachycardia Acute Suicidal ideations Acute
[2018-10-13] MEDS ORDERED: NS 1,000 ML IV SCH (15:15)
[2018-10-13] MEDS: traZODone 50 MG TAB PO SCH (20:02)
[2018-10-13] MEDS: GABAPENTIN 300 MG CAP PO SCH (20:02)
--- NOTE | 2018-10-14 05:11 | CPEKG ---
Test Reason : OPEN Blood Pressure : / mmHG Vent. Rate : 082 BPM Atrial Rate : 082 BPM P-R Int : 150 ms QRS Dur : 082 ms QT Int : 402 ms P-R-T Axes : 073 071 071 degrees QTc Int : 470 ms Sinus rhythm Confirmed by Miles Doss ([id number]) on 10/14/2018 5:10:43 AM Referred By: Confirmed By:Miles Doss
[2018-10-14] MEDS: PANTOPRAZOLE SODIUM 40 MG TAB PO SCH (08:23)
[2018-10-14] MEDS: CITALOPRAM 20 MG TAB PO SCH (08:23)
[2018-10-14] MEDS: ENOXAPARIN 40 MG/0.4 ML SYR SC SCH (08:23)
--- NOTE | 2018-10-14 08:39 | PDMN ---
Medical Necessity Medical necessity: Pt meets IP criteria as of 10/13/18 per MD and MCG M-89 ( chest pain); los > 2 mn for ongoing evaluation of chest pain with a heart score of 5; requiring further workup/monitoring including stress test.
[2018-10-14] MEDS ORDERED: REGADENOSON 0.4 MG/5 ML SYR IVP ONE (09:35)
--- NOTE | 2018-10-14 10:35 | CPR ---
PROCEDURE PERFORMED: Lexiscan injection of Lexiscan MPI study. SUPERVISING BIOLOGY INTERN: Marvin Thomas M.D. INDICATION FOR PROCEDURE: Chest pain, history of scleroderma, abnormal electrocardiogram. PRE: After obtaining informed consent ensuring the patient's n.p.o. status of caffeine for greater t hermosillo 12 hours, the patient was placed on electrocardiogram, initial EKG shows sinus rhythm, with minim al ST depression in multiple leads. The patient reports no chest pain, pressure or symptoms suggesti ng of ischemia. Initial blood pressure 138/80, saturation 97%. INJECTION: The patient was given Lexiscan followed by nuclear isotope, post injection the patient di d report some mild abdominal upset, her heart rate did increase up to 109 BPM, again but really no si gnificant EKG changes from baseline. Within 3 minutes she was given a caffeinated beverage for her n ausea and stomach upset, reporting no chest pain or pressure, no EKG changes, blood pressure stable, within 5 minutes post injection patient reporting all symptoms had subsided, final heart rate of 104 BPM, blood pressure 148/90, saturation 94%. IMPRESSION: A 53-year-old female undergoing Lexiscan MPI study for evaluation of cardiac ischemia , no significant EKG changes from baseline with injection, noted elevated heart rate with injection whi ch returned back to baseline within 5 minutes. Vital signs were stable, the patient did have some mi ld nausea with post injection which subsided with caffeinated beverage. The patient will finish post stress imaging in Nuclear Medicine at this time. /[id number]/MODL
[2018-10-14] MEDS: ACETAMINOPHEN 325 MG TAB PO PRN (11:13)
--- NOTE | 2018-10-14 15:05 | HOSPPROG ---
Hospitalist Progress Note Assessment/Plan: 53 yo F w/ hx of scleroderma and RA presents with chest pain. Plan: 1. Chest pain - Multiple episodes over the last few days; HEART score of 5 denoting need for further evaluation. Noting hx of scleroderma and prior esophageal pathology pain could be GI related but cardiac evaluation seems prudent noting risk factors. - Troponin negative overnight, EKG without acute ischemic changes - MPS from this AM showing medial anterior large inferior perfusion defects suggesting infarcts, without definite evidence of ischemia - Cardiology consulted this afternoon for abnormal MPS findings, will f/u recommendations 2. RA, Scleroderma - Not currently on medication for this 3. Depression - Continue Celexa. 4. GERD - Continue PPI. 5. Underweight - BMI of 16. Diet - NPO @ [place] Code - Full Ppx - LMWH Dispo - Pending cardiac workup Subjective: Patient reports some chest discomfort with stress test this morning Objective: Vital Signs Temp Pulse Resp BP Pulse Ox 36.4 C 103 H 18 139/92 H 97 10/14/18 12:00 10/14/18 12:00 10/14/18 12:00 10/14/18 12:00 10/14/18 12:00 Laboratory Results 10/14/18 03:45 10/14/18 03:45 10/13/18 10/14/18 10/15/18 05:59 05:59 05:59 Intake Total 2837 Balance 2837 PT 12.3 SEC (12.0-15.0) 10/12/18 16:36 INR 0.89 (0.83-1.16) 10/12/18 16:36 - Physical Exam Constitutional: no apparent distress, unkempt Eyes: PERRL Ears, Nose, Mouth, Throat: moist mucous membranes Cardiovascular: regular rate and rhythym Respiratory: no respiratory distress Gastrointestinal: soft, non-tender abdomen Skin: warm Neurologic: AAOx3 Psychiatric: interacting appropriately ICD10 Worksheet Patient Problems: Problems Problem Status Onset Chest pain Acute Constipation Acute Enterocolitis Acute Finger infection Acute Osteomyelitis of finger of left hand Acute Pneumonia Acute Scleroderma Acute Sepsis Acute Sinus tachycardia Acute Suicidal ideations Acute
--- NOTE | 2018-10-14 15:26 | PDCARCONS ---
Cardiology Consult Reason for Consult: Chest pain, abnormal myocardial perfusion imaging study. Chief Complaint: Chest pain. Requesting Physician: Dr. Gregory Chawla. History of Present Illness: This is a 53-year-old female seen in consultation on the progressive care unit. She states that she has been experiencing chest discomfort continuously since Sunday at about 10:00 a.m.. At that time, she developed the abrupt onset of initially right-sided pain. This was described as a sharp pain which then radiated over to her left chest. She thinks this also involves her left shoulder. At some point, it morphed into more of a chest pressure sensation. Her pain continued at 9/10 in intensity throughout the evening and into Sunday. She had greater than 24 hr of continuous chest discomfort when she came to the emergency department. On arrival here she was hemodynamically stable. Cardiac enzymes and ECG were normal. She has continued to experience discomfort now rated at 5/10. Her symptoms have been associated with a mild headache, cough and possibly little shortness of breath. Additionally, she states that she has had a little bit less energy than she has had in the past as well as a slight headache. The pain might be a little bit worse with deep inspiration. There is no change with generalized movement. When she had a stress test earlier today she had worsening of her pain when she raises her arms above her head. She denies fever, chills and sweats. She has had no productive cough or hemoptysis. She has had no injury to the chest wall. She notes no nausea or vomiting. She has had difficulties with constipation. Earlier today she had a Lexiscan myocardial perfusion imaging study. I read the report personally reviewed the images. This demonstrated a large anterior fixed perfusion defect. No ischemia was noted. She was in the hospital in March of 2017. At that time, she had an echocardiogram and a transesophageal echocardiogram. Her transthoracic echocardiogram demonstrated a normal ejection fraction without wall motion abnormalities. There was a questionable vegetation on her aortic valve which led to the performance of a DEEPALI which was noted to be normal. History Information - Allergies/Home Medication List Allergies/Adverse Reactions: No Known Allergies Allergy (Verified 10/12/18 15:18) Home Medications: Albuterol [Proventil Inhaler HFA (*)] 1 - 2 puffs IH Q4H PRN 01/02/16 [Last Taken 04/15/17] Gabapentin [Neurontin 300 MG (*)] 300 mg PO HS 05/01/18 [Last Taken 10/11/18] Omeprazole 40 mg PO DAILY 05/01/18 [Last Taken 10/11/18] Citalopram [CeleXA] 40 mg PO DAILY 10/12/18 [Last Taken 10/11/18] traZODone [traZODONE 50MG (*)] 50 mg PO HS 10/13/18 [Last Taken Unknown] I have personally reviewed and updated: family history, medical history, social history, surgical history Past Medical History: She has had rheumatoid arthritis and scleroderma since the late s. She states she also has a history of COPD, chronic pain, depression, GERD with a history of Boles's esophagitis. There is a chart diagnosis of chronic aspiration. She has had multiple episodes of osteomyelitis as well as frostbite. As result she has had 7 hand surgeries and is currently missing multiple fingers. She has a history of hepatitis C. She has had problems in the past with bronchitis and pneumonia. - Surgical History Additional surgical history: As noted above. Additionally, she has had a previous cholecystectomy, tonsillectomy and adenoidectomy and right elbow surgery it with her history of osteomyelitis. - Family History Positive for: non-pertinent - Social History Smoking Status: Current every day smoker Additional social history: She is currently single. She has 3 sons to which live in [place] 1 lives in [place]. She currently smokes 5 cigarettes daily. She used to smoke heavily up to 1 pack per day. She started at age 26. 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 She last to methamphetamine 3 months ago. She currently uses marijuana have Walker when she can afford it. She denies alcohol use. She does not work although she has had multiple jobs in the past. She is currently on SSDI. She is homeless. Physical Exam Physical Exam: Temp Pulse Resp BP Pulse Ox 36.4 C 103 H 18 139/92 H 97 10/14/18 12:00 10/14/18 12:00 10/14/18 12:00 10/14/18 12:00 10/14/18 12:00 O2 (L/minute) 0 Constitutional: no apparent distress, appears nourished, not in pain Eyes: PERRL, anicteric sclera, EOMI Ears, Nose, Mouth, Throat: moist mucous membranes, hearing normal, ears appear normal, no oral mucosal ulcers Cardiovascular: regular rate and rhythym, no murmur, rub, or gallop, No edema Respiratory: no respiratory distress, no rales or rhonchi, clear to auscultation Gastrointestinal: normoactive bowel sounds, soft, non-tender abdomen, no palpable masses Genitourinary: no bladder fullness, no bladder tenderness Skin: warm, normal color, no rashes or abrasions, no fluctuance, no induration, No mottled Musculoskeletal: other (She is missing multiple fingers on both hands) Neurologic: AAOx3 Psychiatric: interacting appropriately, not anxious, not encephalopathic, thought process linear Lymph, Heme, Immunologic: no cervical LAD, no supraclavicular LAD Lab and Imaging 10/14/18 03:45 10/14/18 03:45 WBC 4.61 10^3/uL (3.80-9.50) 10/14/18 03:45 RBC 4.60 10^6/uL (4.18-5.33) 10/14/18 03:45 Hgb 11.7 g/dL (12.6-16.3) L 10/14/18 03:45 Hct 36.9 % (38.0-47.0) L 10/14/18 03:45 MCV 80.2 fL (81.5-99.8) L 10/14/18 03:45 MCH 25.4 pg (27.9-34.1) L 10/14/18 03:45 MCHC 31.7 g/dL (32.4-36.7) L 10/14/18 03:45 RDW 17.0 % (11.5-15.2) H 10/14/18 03:45 Plt Count 335 10^3/uL (150-400) 10/14/18 03:45 MPV 9.1 fL (8.7-11.7) 10/13/18 03:30 Neut % (Auto) 43.4 % (39.3-74.2) 10/13/18 03:30 Lymph % (Auto) 38.8 % (15.0-45.0) 10/13/18 03:30 [place] % (Auto) 11.3 % (4.5-13.0) 10/13/18 03:30 Eos % (Auto) 5.0 % (0.6-7.6) 10/13/18 03:30 Baso % (Auto) 0.9 % (0.3-1.7) 10/13/18 03:30 Nucleat RBC Rel Count 0.0 % (0.0-0.2) 10/13/18 03:30 Absolute Neuts (auto) 2.34 10^3/uL (1.70-6.50) 10/13/18 03:30 Absolute Lymphs (auto) 2.09 10^3/uL (1.00-3.00) 10/13/18 03:30 Absolute Monos (auto) 0.61 10^3/uL (0.30-0.80) 10/13/18 03:30 Absolute Eos (auto) 0.27 10^3/uL (0.03-0.40) 10/13/18 03:30 Absolute Basos (auto) 0.05 10^3/uL (0.02-0.10) 10/13/18 03:30 Absolute Nucleated RBC 0.00 10^3/uL (0-0.01) 10/13/18 03:30 Immature Gran % 0.6 % (0.0-1.1) 10/13/18 03:30 Immature Gran # 0.03 10^3/uL (0.00-0.10) 10/13/18 03:30 PT 12.3 SEC (12.0-15.0) 10/12/18 16:36 INR 0.89 (0.83-1.16) 10/12/18 16:36 APTT 24.6 SEC (23.0-38.0) 10/12/18 16:36 D-Dimer 0.68 ug/mLFEU (0.00-0.50) H 10/12/18 16:36 VBG Lactic Acid 1.5 mmol/L (0.7-2.1) 10/12/18 19:00 Sodium 139 mEq/L (135-145) 10/14/18 03:45 Potassium 3.9 mEq/L (3.5-5.2) 10/14/18 03:45 Chloride 112 mEq/L (97-110) H 10/14/18 03:45 Carbon Dioxide 22 mEq/l (22-31) 10/14/18 03:45 Anion Gap 5 mEq/L (6-14) L 10/14/18 03:45 BUN 6 mg/dL (7-23) L 10/14/18 03:45 Creatinine 0.4 mg/dL (0.6-1.0) L 10/14/18 03:45 Estimated GFR > 60 10/14/18 03:45 Glucose 83 mg/dL (70-100) 10/14/18 03:45 Calcium 8.5 mg/dL (8.5-10.4) 10/14/18 03:45 Phosphorus 4.0 mg/dL (2.5-4.5) 10/13/18 03:30 Magnesium 1.7 mg/dL (1.6-2.3) 10/14/18 03:45 Total Bilirubin 0.3 mg/dL (0.1-1.4) 10/12/18 16:36 Conjugated Bilirubin 0.3 mg/dL (0.0-0.5) 10/12/18 16:36 Unconjugated Bilirubin 0.0 mg/dL (0.0-1.1) 10/12/18 16:36 AST 25 IU/L (14-46) 10/12/18 16:36 ALT 27 IU/L (9-52) 10/12/18 16:36 Alkaline Phosphatase 122 IU/L (38-126) 10/12/18 16:36 POC Troponin I 0.00 ng/mL (0.00-0.08) 10/12/18 18:33 Troponin I < 0.012 ng/mL (0.000-0.034) 10/13/18 03:30 Total Protein 7.3 g/dL (6.3-8.2) 10/12/18 16:36 Albumin 4.1 g/dL (3.5-5.0) 10/12/18 16:36 Lipase 95 IU/L (23-300) 10/12/18 16:36 Urine Color PALE YELLOW 10/12/18 15:55 Urine Appearance CLEAR 10/12/18 15:55 Urine pH 5.0 (5.0-7.5) 10/12/18 15:55 Ur Specific [place] 1.009 (1.002-1.030) 10/12/18 15:55 Urine Protein NEGATIVE (NEGATIVE) 10/12/18 15:55 Urine Ketones NEGATIVE (NEGATIVE) 10/12/18 15:55 Urine Blood NEGATIVE (NEGATIVE) 10/12/18 15:55 Urine Nitrate NEGATIVE (NEGATIVE) 10/12/18 15:55 Urine Bilirubin NEGATIVE (NEGATIVE) 10/12/18 15:55 Urine Urobilinogen NEGATIVE EU (0.2-1.0) 10/12/18 15:55 Ur Leukocyte Esterase NEGATIVE (NEGATIVE) 10/12/18 15:55 Urine Glucose NEGATIVE (NEGATIVE) 10/12/18 15:55 Urine Opiates Screen NEGATIVE (NEGATIVE) 10/12/18 15:55 Urine Barbiturates NEGATIVE (NEGATIVE) 10/12/18 15:55 Ur Phencyclidine Scrn NEGATIVE (NEGATIVE) 10/12/18 15:55 Ur Amphetamine Screen NEGATIVE (NEGATIVE) 10/12/18 15:55 U Benzodiazepines Scrn NEGATIVE (NEGATIVE) 10/12/18 15:55 Urine Cocaine Screen NEGATIVE (NEGATIVE) 10/12/18 15:55 U Marijuana (THC) Screen NON-NEGATIVE (NEGATIVE) H 10/12/18 15:55 Visualized and Interpreted Chest x-ray results: Yes Visualized and Interpreted imaging results: Yes EKG additional interpertation: Her ECG demonstrates normal sinus rhythm without ischemic ST or T changes. Telemetry: Normal sinus rhythm. No arrhythmia. A/P Assessment: 53-year-old female with no known cardiovascular disease however cardiac risk factors of chronic tobacco and drug use as well as a history of scleroderma/ rheumatoid arthritis who is admitted with highly atypical chest discomfort. She has had fairly continuous ongoing chest discomfort now since Sunday morning. The pain has been anywhere between 9/10 to 5/10 in intensity and has migrated. On physical examination there is a reproducible component to her chest discomfort. Her ECG and cardiac enzymes have been negative despite protracted chest pain. Her Lexiscan myocardial perfusion imaging study was, however, abnormal indicating a large anterior fixed perfusion defect. Trying to reconcile this stress test with the patient's clinical symptoms and objective findings on her cardiac enzymes and ECG is a little difficult. I think is most likely that the stress test represents a false positive stress test or potentially is true true and unrelated. Plan: 1. At the present time I do not feel compelled to have the patient go to the cardiac catheterization laboratory. I think we should perform additional noninvasive testing. 2. I have ordered an echocardiogram. 3. Depending on those results we may consider additional testing in the form of a coronary CTA. 4. Further recommendations will be made pending the above workup. Review of Systems Review of Systems: - Review of Systems Constitutional: no symptoms reported EENTM: no symptoms reported Respiratory: see HPI Cardiac: see HPI Gastrointestinal/Abdominal: see HPI Genitourinary: no symptoms Musculoskelatal: see HPI Skin: no symptoms Neurological: no symptoms Hematologic/Lymphatic: no symptoms reported Immunologic/allergic: no symptoms reported All Other Systems: Reviewed and Negative
[2018-10-14] MEDS ORDERED: IBUPROFEN 600 MG TAB PO PRN (18:02)
[2018-10-14] MEDS: GABAPENTIN 300 MG CAP PO SCH (20:49)
[2018-10-14] MEDS: traMADol 50 MG TAB PO PRN (20:58)
[2018-10-14] MEDS: traZODone 50 MG TAB PO SCH (22:59)
[2018-10-15] MEDS: traMADol 50 MG TAB PO PRN ×2 (05:03→19:55)
--- NOTE | 2018-10-15 08:12 | ECHO ---
[email or web address] [address] [address] Main: [phone] Fax: Transthoracic Echocardiogram Name: KIERRA BANKS MR#: [id number] Study Date: 10/14/2018 Study Time: 03:28 PM Date of : 1965 Age: 53 year(s) Height: 157.5 cm (62 in.) Weight: 45.81 kg (101 lb.) BSA: 1.43 m2 Gender: Female Examination: Echo Indication: abnormal MPI Image Quality: Adequate Contrast: Requested by: Marvin Thomas BP: 139 mmHg/92 mmHg Heart Rate: Rhythm: Indication: abnormal MPI Procedure Staff Supervisor Intelligence Analyst: Gregoria Montelongo [facility] Reading Physician: Marvin Thomas MD Requesting Provider: Conclusions: Normal size left ventricle. Normal global systolic LV function. EF is 61 %. Normal diastolic LV function. Mild mitral valve regurgitation is present. Trivial aortic valve regurgitation. Trivial tricuspid valve regurgitation. Trivial pericardial effusion. Measurements: Chambers Valvular Assessment AV/MV Valvular Assessment TV/PV Normal Normal Normal Name Value Range Name Value Range Name Value Range Ao Karena (2D): 2.7 cm (1.4 cm-2.6 AV Vmax: 1.15 m/s (1 m/s-1.7 PV Vmax: 0.62 m/s (0.6 m/s-0.9 cm) m/s) m/s) IVSd (2D): 0.8 cm (0.6 cm-1.1 AV maxP mmHg ( - ) PV PGmax: 2 mmHg ( - ) cm) AV meanP mmHg ( - ) LVDd (2D): 3.6 cm (3.9 cm-5.3 KARTIK (VTI): 2.1 cm ( - ) cm) MV E Vmax: 0.63 m/s ( - ) LVDs (2D): 2.6 cm (2.1 cm-4 MV A Vmax: 0.64 m/s ( - ) cm) MV E/A: 0.98 ( - ) LVPWd (2D): 0.8 cm ( - ) MV PHT: 0.061 s ( - ) LVOTd 1.9 cm 1.9 cm mm MVA (PHT): 3.6 s ( - ) LVEF (BP): 61 % (>=55 %) RVDd(2D): 1.8 cm (1.9 cm-3.8 cmmm) Continued Measurements: Chambers Valvular Assessment AV/MV Patient: KIERRA BANKS Study Date: 10/14/2018 Page 1 of 2 03:28 PM Name Value Name Value LADs: 2.8 cm MV DecTime: 197 m/s LADs Lon.8 cm MV E' Septal: 0.08 m/s LA Area: 13.8 cm2 MV E/E' Septal: 7.60 RA Area: 10.3 cm2 MV E/E' Lateral: 5.20 Additional Vessels Name Value Inferior Vena Cava: 1.0 cm Findings: Left Ventricle: Normal size left ventricle. No LV hypertrophy. Normal global systolic LV function. EF is 61 %. Normal diastolic LV function. Right Ventricle: Normal size right ventricle. Normal RV function. Left Atrium: The left atrium is normal in size. Right Atrium: The right atrium is normal in size. Mitral Valve: The mitral valve is normal in appearance and function. Mild mitral valve regurgitation is present. No mitral stenosis is present. Aortic Valve: The aortic valve is tri-leaflet. Trivial aortic valve regurgitation. No aortic valve stenosis is present. Tricuspid Valve: The tricuspid valve is normal in appearance and function. Trivial tricuspid valve regurgitation. Pulmonic Valve: Pulmonary valve not well visualized. Aorta: The aorta is normal. Normal size aortic root measuring 2.7 cm. IVC: The IVC is normal sized. Pericardium: Trivial pericardial effusion. There is pericardial fat. (No Signature Object) Patient: KIERRA BANKS Study Date: 10/14/2018 Page 2 of 2 03:28 PM [id number]
--- NOTE | 2018-10-15 09:01 | CPEKG ---
Test Reason : OPEN Blood Pressure : / mmHG Vent. Rate : 090 BPM Atrial Rate : 090 BPM P-R Int : 157 ms QRS Dur : 080 ms QT Int : 383 ms P-R-T Axes : 073 058 053 degrees QTc Int : 469 ms Sinus rhythm Probable left atrial enlargement Minimal ST depression, inferior leads Confirmed by Johnnie Brown ([id number]) on 10/15/2018 9:01:28 AM Referred By: Confirmed By:Johnnie Brown
[2018-10-15] MEDS: CITALOPRAM 20 MG TAB PO SCH (09:50)
[2018-10-15] MEDS: METOPROLOL TARTRATE 50 MG TAB PO SCH ×2 (09:50→19:56)
[2018-10-15] MEDS: PANTOPRAZOLE SODIUM 40 MG TAB PO SCH (09:50)
[2018-10-15] MEDS: ENOXAPARIN 40 MG/0.4 ML SYR SC SCH (09:51)
--- NOTE | 2018-10-15 10:39 | SOAPPROG ---
AME Progress Note Assessment/Plan: Assessment: She has a history of atypical chest discomfort. By history and physical examination this is most likely musculoskeletal. She has been ruled out for pulmonary embolism. Despite having protracted chest discomfort she has no electrocardiographic changes, echocardiographic abnormalities or evidence of myocardial injury based on serial troponins. My overall suspicion for underlying ischemia is fairly low. She has, however, had an abnormal nuclear stress test with a large fixed anterior defect that I think is likely artifact. At the present time, I do not feel compelled to proceed with coronary angiography. I would like to do a further workup in a noninvasive fashion. I did talk to Radiology today about performing a CT coronary angiogram which I think we can schedule for tomorrow. Plan: 1. I have ordered a CT coronary angiogram to be done tomorrow. 2. In anticipation of the above steady she has been started on metoprolol tartrate 50 mg twice daily. I would like her to have 3 doses prior to obtaining the angiogram. 3. Further recommendations will be made pending the above evaluation. 10/15/18 10:38 Subjective: She is doing well today. She continues to have very low level chest discomfort. This is worse with deep inspiration and position. She has no shortness of breath. No arrhythmias have been identified. She had an echocardiogram done yesterday that was noted to be normal. Objective: Vital Signs Temp Pulse Resp BP Pulse Ox 35.6 C L 98 18 107/69 84 L 10/15/18 07:17 10/15/18 09:50 10/15/18 07:17 10/15/18 09:50 10/15/18 07:17 Laboratory Results 10/14/18 03:45 10/14/18 03:45 10/14/18 10/15/18 10/16/18 05:59 05:59 05:59 Intake Total 2837 700 Balance 2837 700 PT 12.3 SEC (12.0-15.0) 10/12/18 16:36 INR 0.89 (0.83-1.16) 10/12/18 16:36 Physical Exam - Physical Exam General Appearance: WD/WN, alert, no apparent distress ICD10 Worksheet Patient Problems: Problems Problem Status Onset Chest pain Acute Constipation Acute Enterocolitis Acute Finger infection Acute Osteomyelitis of finger of left hand Acute Pneumonia Acute Scleroderma Acute Sepsis Acute Sinus tachycardia Acute Suicidal ideations Acute
--- NOTE | 2018-10-15 13:20 | HOSPPROG ---
Hospitalist Progress Note Assessment/Plan: 53 yo F w/ hx of scleroderma and RA presents with chest pain. Plan: 1. Chest pain - Multiple episodes over the last few days; HEART score of 5 denoting need for further evaluation. Noting hx of scleroderma and prior esophageal pathology pain could be GI related but cardiac evaluation seems prudent noting risk factors. - Troponin negative, EKG without acute ischemic changes on admission - MPS from 10/14 showing medial anterior large inferior perfusion defects suggesting infarcts, without definite evidence of ischemia - Cardiology consulted for abnormal MPS findings, TTE ordered which did not show any acute abnormalities - Cardiology ordered a CT coronary angiogram to be done tomorrow. - Patient currently with sinus tachycardia, has been started on metoprolol tartrate 50 mg twice daily per cardiology, they would like her to have 3 doses prior to obtaining the angiogram. 2. RA, Scleroderma - Not currently on medication for this 3. Depression - Continue Celexa. 4. GERD - Continue PPI. 5. Underweight - BMI of 16. Diet - NPO @ [place] Code - Full Ppx - LMWH Dispo - Pending cardiac workup as above Subjective: Patient reports some chest pain overnight Objective: Vital Signs Temp Pulse Resp BP Pulse Ox 35.6 C L 98 18 107/69 84 L 10/15/18 07:17 10/15/18 09:50 10/15/18 07:17 10/15/18 09:50 10/15/18 07:17 Laboratory Results 10/14/18 03:45 10/14/18 03:45 10/14/18 10/15/18 10/16/18 05:59 05:59 05:59 Intake Total 2837 700 Balance 2837 700 PT 12.3 SEC (12.0-15.0) 10/12/18 16:36 INR 0.89 (0.83-1.16) 10/12/18 16:36 - Physical Exam Constitutional: unkempt Eyes: PERRL Ears, Nose, Mouth, Throat: moist mucous membranes Cardiovascular: regular rate and rhythym Respiratory: no respiratory distress Gastrointestinal: soft, non-tender abdomen Skin: normal color Neurologic: AAOx3 Psychiatric: interacting appropriately ICD10 Worksheet Patient Problems: Problems Problem Status Onset Chest pain Acute Constipation Acute Enterocolitis Acute Finger infection Acute Osteomyelitis of finger of left hand Acute Pneumonia Acute Scleroderma Acute Sepsis Acute Sinus tachycardia Acute Suicidal ideations Acute
[2018-10-15] MEDS: GABAPENTIN 300 MG CAP PO SCH (19:56)
[2018-10-15] MEDS: traZODone 50 MG TAB PO SCH (19:56)
[2018-10-16] MEDS: traMADol 50 MG TAB PO PRN (07:45)
[2018-10-16] MEDS: ENOXAPARIN 40 MG/0.4 ML SYR SC SCH (07:45)
[2018-10-16] MEDS: PANTOPRAZOLE SODIUM 40 MG TAB PO SCH (07:45)
[2018-10-16] MEDS: METOPROLOL TARTRATE 50 MG TAB PO SCH (07:45)
[2018-10-16] MEDS: CITALOPRAM 20 MG TAB PO SCH (07:45)
[2018-10-16] MEDS ORDERED: METOPROLOL TARTRATE 50 MG TAB PO ONE (09:30)
[2018-10-16] MEDS ORDERED: IOPAMIDOL (ISOVUE 370) 75 ML BTL IV ONE (10:14)
[2018-10-16] MEDS: ACETAMINOPHEN 325 MG TAB PO PRN (12:17)
[2018-10-16] MEDS: ALBUTEROL 60 PUFFS/8 GM MDI IH PRN (12:18)
--- NOTE | 2018-10-16 14:20 | SOAPPROG ---
AME Progress Note Assessment/Plan: Assessment: She has a history of atypical chest discomfort. By history and physical examination this is most likely musculoskeletal. She has been ruled out for pulmonary embolism. Despite having protracted chest discomfort she has no electrocardiographic changes, echocardiographic abnormalities or evidence of myocardial injury based on serial troponins. My overall suspicion for underlying ischemia is fairly low. She has, however, had an abnormal nuclear stress test with a large fixed anterior defect that I think is likely artifact. At the present time, I do not feel compelled to proceed with coronary angiography. I would like to do a further workup in a noninvasive fashion. I did talk to Radiology today about performing a CT coronary angiogram which I think we can schedule for tomorrow. 10/16/2018: Continues to have ACP. Really not consistent with angina. Cor CTA really unremarkable. Plan: 1. CP likely muskuloskeletal. Fals positive stress MPI. 2. Can be discharged home when thought ready with regards to her other co- morbidities. 3. F/U with PCP as outpaitient. 10/16/18 14:17 Subjective: She can continues to have mild focal chest wall tenderness immediately to the left of the sternum. No anignal quality CP or SOB. CT cor angiogram completed. No calcified plaque. Normal proximal and mid coronary arteries. Distal vessels note seen. Objective: Vital Signs Temp Pulse Resp BP Pulse Ox 36.4 C 69 21 H 118/78 95 10/16/18 11:42 10/16/18 11:42 10/16/18 11:42 10/16/18 11:42 10/16/18 11:42 Laboratory Results 10/16/18 03:25 10/16/18 03:25 10/15/18 10/16/18 10/17/18 05:59 05:59 05:59 Intake Total 700 500 Balance 700 500 PT 12.3 SEC (12.0-15.0) 10/12/18 16:36 INR 0.89 (0.83-1.16) 10/12/18 16:36 ICD10 Worksheet Patient Problems: Problems Problem Status Onset Chest pain Acute Constipation Acute Enterocolitis Acute Finger infection Acute Osteomyelitis of finger of left hand Acute Pneumonia Acute Scleroderma Acute Sepsis Acute Sinus tachycardia Acute Suicidal ideations Acute
[2018-10-16 15:25] VITALS: BP 103/75
--- NOTE | 2018-10-16 16:10 | ASMTCMCOM ---
CM Note CM Note Notes: Patient states she is going to stay with a friend at discharge. Patient was provided with clothes and a bus pass to get her back to [place] where she is connected with resources. Patient is ready for disharge when medically clear. CM available if further needs arise. Date Signed: 10/16/2018 04:09 PM Electronically Signed By:Elissa Regan LCSW
--- NOTE | 2018-10-16 16:12 | ASMTDCNOTE ---
Case Management Discharge Discharge Order Complete? Answers: Yes Patient to Obtain Answers: Independently Medications Transportation Arranged Answers: Bus Tokens Discharge Comments Notes: Patient is discharging today to a friend's home. She plans to take the bus back to [place] tomorrow where she is connected with community resources. Patient was provided a bus pass and clothes. No further needs. Date Signed: 10/16/2018 04:12 PM Electronically Signed By:Elissa Regan LCSW
--- NOTE | 2018-10-16 16:16 | ASDISCHSUM ---
Discharge Information Plan Status:Home with No Needs Medically Cleared to Leave:10/15/2018 Discharge Date:10/15/2018 CM D/C Disposition:Home, Routine, Self-Care ADT D/C Disposition:Home, Routine, Self-Care Projected Discharge Date:10/16/2018 12:00 AM Transportation at D/C:Friend Discharge Delay Reason: Follow-Up Date:10/16/2018 12:00 AM Discharge Slot:2 - 12:01 pm - 18:00 pm Final Diagnosis:Sclerderma Placement Information Patient Contact Information Contact Name:RUBENS Relationship:Mother Address:[address] Work Phone: [facility] Phone: State/Zip Code:[place] [address] Email: Financial Information Financial Class:Medicare Primary Plan Desc:MEDICARE INPATIENT Primary Plan Number:[id number] Secondary Plan Desc: Secondary Plan Number: Assessment Information LACE LACE Length of stay for Answers: 3 days current admission Acuity / Level of Answers: Yes Care: Did the patient have an inpatient admission? Comorbidities - select Answers: Opioid dependence all that apply / Chronic pain Other Notes: h/o scleroderma, Rheumatoid arthritis, barretts esophagus,osteomyelitis # of Emergency department Answers: 5-8 visits in the last 6 months Social determinants Answers: Mental health diagnosis (anxiety, depression, pers onality disorders, etc.) Score: 18 Date Signed: 10/16/2018 04:14 PM Electronically Signed By:Elissa Regan LCSW CAGE Questionnaire CAGE Do you feel you ought to Answers: No cut down on your drinking or drug use? Do people annoy you by Answers: No criticizing your drinking or drug use? Do you feel guilty about Answers: Yes your drinking or drug use? Do you drink or use drugs Answers: No first thing in the morning ([employer])? Additional Comments pt reports consuming 2 grams of marijuana /week. Does not want resources. Date Signed: 10/13/2018 01:23 PM Electronically Signed By:Nelda Toro RN [facility] Progress Note CM Note CM Note Notes: 10/13/2018 Case Management Note Met w/pt. Pt admitted for Chest Pain. Completed CAGE. Please see case management d/c notes for February 2018 and April 2018 for pt history. Case Management has worked extensively assisting pt with placement in the past, ultimately securing placement at [facility]. Pt left [facility] b/c of "issues with my debit card". 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 Pt has stayed at [facility], [facility] and [facility]. Pt has a sister Oneyda in [place] and Brother Adolfo in [place]. Pt primary care is through [facility] in [place]. "I think it's Dr. Langford". 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 Pt is unaware of status of application. There are no case management needs for discharge. Pt is well connected to resources in the community. There are no therapy evals ordered at this time, pt is ambulating without difficulty in her room. Case Management d/c poc: to longterm with follow up as directed. Case Management available if needs change. Date Signed: 10/13/2018 01:28 PM Electronically Signed By:Nelda Toro RN [facility] Progress Note CM Note CM Note Notes: Patient states she is going to stay with a friend at discharge. Patient was provided with clothes and a bus pass to get her back to [place] where she is connected with resources. Patient is ready for disharge when medically clear. CM available if further needs arise. Date Signed: 10/16/2018 04:09 PM Electronically Signed By:Elissa Regan LCSW Case Management Discharge Plan Note Case Management Discharge Discharge Order Complete? Answers: Yes Patient to Obtain Answers: Independently Medications Transportation Arranged Answers: Bus Tokens Discharge Comments Notes: Patient is discharging today to a friend's home. She plans to take the bus back to [place] tomorrow where she is connected with community resources. Patient was provided a bus pass and clothes. No further needs. Date Signed: 10/16/2018 04:12 PM Electronically Signed By:Elissa Regan LCSW Intervention Information
--- NOTE | 2018-10-16 17:38 | PDDCSUM ---
Discharge Summary Discharge Summary: 53 yo F w/ hx of scleroderma and RA presents with chest pain. Had a false positive MPS. Had a cardiac CT on the days of discharge which was unremarkable. Her BP is felt to be non cardiac in etiology and appears to be improving. Cardiology provided consultation. She will f/u with her PCP next week DDX 1. Chest pain - Multiple episodes over the last few days; HEART score of 5 denoting need for further evaluation. Noting hx of scleroderma and prior esophageal pathology pain could be GI related but cardiac evaluation seems prudent noting risk factors. - Troponin negative, EKG without acute ischemic changes on admission - MPS from 10/14 showing medial anterior large inferior perfusion defects suggesting infarcts, without definite evidence of ischemia - Cardiology consulted for abnormal MPS findings, TTE ordered which did not show any acute abnormalities - Cardiology ordered a CT coronary angiogram and this was unremarkable. 2. RA, Scleroderma - Not currently on medication for this, will f/u with PCP 3. Depression - Continue Celexa. 4. GERD - Continue PPI. 5. Underweight - BMI of 16. Exam: VSS NAD AAOX3 RRR CTA B MEDS: SEE MED REC F/U: WITH PCP NEXT WEEK TOTAL TIME SPENT ON D/C IS 35 MINS
== END 2018-10-16 17:00 | disposition home or self-care (01) | DRG 313 ==
LOC: F2W 10-13 00:18 → OBSVTOIN 10-13 15:14
PROVIDERS: ADMIT Student in an Organized Health Care Education/Training Program; ATTEND Student in an Organized Health Care Education/Training Program
DX: R07.89 Other chest pain (principal); Z68.1 Body mass index [BMI] 19.9 or less, adult; E86.9 Volume depletion, unspecified; M06.9 Rheumatoid arthritis, unspecified; M34.9 Systemic sclerosis, unspecified; F32.9 Major depressive disorder, single episode, unspecified; K21.9 Gastro-esophageal reflux disease without esophagitis; R63.6 Underweight; Z72.0 Tobacco use; Z89.029 Acquired absence of unspecified finger(s); Z59.0 Homelessness
CPT/HCPCS: 80305; 84484-ER; A9500; G0378; J1650; J2785; Q9967

== ENCOUNTER 2019-02-02 18:52 | Inpatient (IN) | payer OTHER, MEDICAID ==
[2019-02-02] MEDS ORDERED: NS 1,000 ML IV ONE (18:59)
[2019-02-02] MEDS ORDERED: PROMETHAZINE HCL 25 MG/ML INJ IVP ONE (18:59)
--- NOTE | 2019-02-02 19:03 | EDPHY ---
H & P Smoking Status: Current every day smoker Time Seen by Provider: 02/02/19 18:52 HPI/ROS: CHIEF COMPLAINT: Diarrhea vomiting and abdominal bloating HISTORY OF PRESENT ILLNESS: 53-year-old woman arrives by EMS from the correction with chief complaint of nausea vomiting and abdominal bloating for 24 hr. She has a history of Boles's esophagus and scleroderma and presents with severe symptoms. Denies hematemesis or coffee-ground emesis or melena. Associated with abdominal bloating and pain and discomfort. Not better worse with anything. REVIEW OF SYSTEMS: Eye: no change in vision ENT: no sore throat Cardiac: no chest pain or syncope Pulmonary: no cough or SOB Abdomen: HPI Musculoskeletal: Multiple previous finger amputations, does not have acute elbow or finger pain today. Skin: no rash Neuro: no headache Constitutional: no fever : no urinary symptoms A comprehensive 10 point review of systems is otherwise negative aside from elements mentioned in the history of present illness. PAST MEDICAL HISTORY: History and physical dated 10/12/2018 personally reviewed includes scleroderma, Boles's esophagus, rheumatoid arthritis, chronic pain, reflux, multiple finger amputations, cholecystectomy; 1 week admission in April of 2018 for enterocolitis with similar symptoms Social history: Homeless General Appearance: Alert and conversant, cooperative. Eyes: No scleral icterus. ENT, Mouth: Normal mucous membranes. Respiratory: Normal respiratory effort, breath sounds equal, lungs are clear to auscultation. Cardiovascular: Regular rate and rhythm. Gastrointestinal: Abdomen is mildly distended, tender to palpation but no rebound or guarding Neurological: Alert, face symmetric, normal motor and sensory in extremities. Skin: Warm and dry, no rashes. Musculoskeletal: Multiple finger amputations. Good range of motion of both elbows. Psychiatric: Not agitated. Emergency Department course/MDM: IV fluids, CBC chemistry and GI pathogen panel. Consider CT imaging with abdominal distention and pain. 1939: Imodium 2 p.o., creatinine normal, CT scan ordered and signed out to Dr. Capellan with plan for admission to hospitalist if no surgical condition is found on imaging. (Jonathon Bravo) 1939: I assumed care of this patient from Dr. Bravo at shift change pending abdominopelvic CT findings. 2006: I spoke with Dr. Tobias, radiologist, regarding patient's abdominopelvic CT. Patient's CT findings are consistent with gastroenteritis or enterocolitis. 2011: I consulted with Dr. Davidson, hospitalist, who accepts admission of this patient. (Chicho Capellan) Constitutional: Initial Vital Signs Temperature (C) 36.6 C 02/02/19 18:55 Heart Rate 89 02/02/19 18:55 Respiratory Rate 20 02/02/19 18:55 Blood Pressure 112/91 H 02/02/19 18:55 O2 Sat (%) 96 02/02/19 18:55 O2 Delivery Mode Room Air Allergies/Adverse Reactions: No Known Allergies Allergy (Verified 02/02/19 18:58) Home Medications: Medication Instructions Recorded Albuterol [Proventil Inhaler HFA 1 - 2 puffs IH Q4H PRN 01/02/16 (*)] Gabapentin [Neurontin 300 MG (*)] 300 mg PO HS 05/01/18 Omeprazole 40 mg PO DAILY 05/01/18 Citalopram [CeleXA 20 MG] 40 mg PO DAILY 10/12/18 traZODone [traZODONE 50MG (*)] 50 mg PO HS 10/13/18 traMADol [Ultram 50 mg (*)] 50 mg PO Q6HRS PRN #20 tab 10/16/18 - Data Points Laboratory Results: Laboratory Results 02/02/19 19:06 02/02/19 19:06 02/02/19 02/02/19 19:06 19:06 WBC 6.94 10^3/uL 10^3/uL (3.80-9.50) RBC 4.95 10^6/uL 10^6/uL (4.18-5.33) Hgb 12.2 g/dL L g/dL (12.6-16.3) Hct 38.5 % % (38.0-47.0) MCV 77.8 fL L fL (81.5-99.8) MCH 24.6 pg L pg (27.9-34.1) MCHC 31.7 g/dL L g/dL (32.4-36.7) RDW 17.7 % H % (11.5-15.2) Plt Count 458 10^3/uL H 10^3/uL (150-400) MPV 8.8 fL fL (8.7-11.7) Neut % (Auto) 54.3 % % (39.3-74.2) Lymph % (Auto) 33.1 % % (15.0-45.0) Cascade % (Auto) 8.6 % % (4.5-13.0) Eos % (Auto) 2.7 % % (0.6-7.6) Baso % (Auto) 1.0 % % (0.3-1.7) Nucleat RBC Rel Count 0.0 % % (0.0-0.2) Absolute Neuts (auto) 3.76 10^3/uL 10^3/uL (1.70-6.50) Absolute Lymphs (auto) 2.30 10^3/uL 10^3/uL (1.00-3.00) Absolute Monos (auto) 0.60 10^3/uL 10^3/uL (0.30-0.80) Absolute Eos (auto) 0.19 10^3/uL 10^3/uL (0.03-0.40) Absolute Basos (auto) 0.07 10^3/uL 10^3/uL (0.02-0.10) Absolute Nucleated RBC 0.00 10^3/uL 10^3/uL (0-0.01) Immature Gran % 0.3 % % (0.0-1.1) Immature Gran # 0.02 10^3/uL 10^3/uL (0.00-0.10) Sodium 139 mEq/L mEq/L (135-145) Potassium 4.2 mEq/L mEq/L (3.5-5.2) Chloride 108 mEq/L mEq/L (97-110) Carbon Dioxide 18 mEq/l L mEq/l (22-31) Anion Gap 13 mEq/L mEq/L (6-14) BUN 8 mg/dL mg/dL (7-23) Creatinine 0.5 mg/dL L mg/dL (0.6-1.0) Estimated GFR > 60 Glucose 120 mg/dL H mg/dL (70-100) Calcium 9.5 mg/dL mg/dL (8.5-10.4) Medications Given: Discontinued Medications Sodium Chloride (Ns) 1,000 mls @ 0 mls/hr IV EDNOW ONE; Wide Open PRN Reason: Protocol Stop: 02/02/19 19:00 Last Admin: 02/02/19 19:17 Dose: 1,000 mls Loperamide HCl ( Imodium) 4 mg PO EDNOW ONE Stop: 02/02/19 19:14 Last Admin: 02/02/19 19:21 Dose: 4 mg Promethazine HCl (Phenergan) 12.5 mg IVP EDNOW ONE Stop: 02/02/19 19:00 Last Admin: 02/02/19 19:17 Dose: 12.5 mg Departure - Departure Disposition: [facility] Inpatient Acute Clinical Impression: Enterocolitis Condition: Fair Referrals: Patient,NotPresent [Unknown] - As per Instructions
[2019-02-02 19:10] LABS: PLATELET COUNT 458 10^3/uL (150-400)
[2019-02-02] MEDS ORDERED: LOPERAMIDE HCL 2 MG CAP PO ONE (19:13)
[2019-02-02] MEDS ORDERED: IOPAMIDOL (ISOVUE-300) 100 ML BTL ONE (19:36)
[2019-02-02] MEDS ORDERED: PROMETHAZINE HCL 25 MG/ML INJ IVP PRN (20:21)
[2019-02-02] MEDS ORDERED: LORazepam 0.5 MG TAB PO PRN (20:21)
[2019-02-02] MEDS ORDERED: oxyCODONE IR 5 MG TAB PO PRN (20:21)
[2019-02-02] MEDS ORDERED: HYDROmorphONE/DILAUDID 1 MG/ML INJ IVP PRN (20:21)
[2019-02-02] MEDS ORDERED: ONDANSETRON 4 MG/2 ML VIAL IVP PRN (20:21)
[2019-02-02] MEDS ORDERED: LORazepam 2 MG/ML INJ IVP PRN (20:21)
[2019-02-02] MEDS ORDERED: HYDROCODONE/APAP 5/325 TAB PO PRN (20:21)
[2019-02-02] MEDS: NS 1,000 ML IV SCH (21:12)
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
[2019-02-03 05:07] LABS: PLATELET COUNT 360 10^3/uL (150-400)
[2019-02-03] MEDS: NS 1,000 ML IV SCH ×3 (05:48→21:20)
[2019-02-03] MEDS: ENOXAPARIN 40 MG/0.4 ML SYR SC SCH (10:59)
--- NOTE | 2019-02-03 15:24 | HOSPPROG ---
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 4 BM already since this am. Soiled her clothes prior to admission from uncontrolled stool, asking for clothing donation. Objective: Vital Signs Temp Pulse Resp BP Pulse Ox 36.7 C 91 16 95/67 L 99 02/03/19 11:22 02/03/19 11:22 02/03/19 11:22 02/03/19 11:22 02/03/19 11:22 Laboratory Results 02/03/19 04:20 02/03/19 04:20 02/02/19 02/03/19 02/04/19 05:59 05:59 05:59 Intake Total [address] abd - enteritis Old chart reviewed - most recent admission was for CP - CTA coronaries was negative - Physical Exam Constitutional: no apparent distress, appears nourished, not in pain Cardiovascular: regular rate and rhythym, no murmur, rub, or gallop Respiratory: no respiratory distress, no rales or rhonchi, clear to auscultation Gastrointestinal: normoactive bowel sounds, soft, non-tender abdomen, no palpable masses Skin: no rashes or abrasions, no fluctuance, no induration Neurologic: AAOx3, sensation intact bilaterally Psychiatric: interacting appropriately, not anxious, not encephalopathic, thought process linear ICD10 Worksheet Patient Problems: Problems Problem Status Onset Pneumonia Acute Scleroderma Acute Sepsis Acute Sinus tachycardia Acute Suicidal ideations Acute Constipation Acute Osteomyelitis of finger of left hand Acute Finger infection Acute Enterocolitis Acute Chest pain Acute
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
[2019-02-03] MEDS: PANTOPRAZOLE SODIUM 40 MG TAB PO SCH (17:54)
[2019-02-03] MEDS: ONDANSETRON DISINTEGRATING 4 MG TAB PO PRN (17:54)
[2019-02-03] MEDS ORDERED: PNEUMOCOCCAL 0.5ML VACCINE VIAL (PNEUMOVAX 23) IM ONE (18:14)
--- NOTE | 2019-02-03 18:24 | PDMN ---
Medical Necessity Medical necessity: [facility] M170 Gastroenteritis, A-2 days: 53 yo homeless pt w/ diarrhea and abd pain. Eval reveals enterocolitis, initially obs for workup/tx but pt cont w/ massive diarrhea beyond obs care causing incontinence of stool, GI panel + E. Coli enteritis. Pt is hypotensive this am, remains on IVF requiring additional MN for ongoing monitoring and tx. Change to IP status 02/03@1447 per MD order.
[2019-02-03] MEDS: GABAPENTIN 300 MG CAP PO SCH (20:39)
[2019-02-03] MEDS: FAMOTIDINE 20 MG TAB PO SCH (20:39)
[2019-02-04] MEDS: NS 1,000 ML IV SCH ×3 (06:11→22:40)
[2019-02-04] MEDS: CITALOPRAM 20 MG TAB PO SCH (09:03)
[2019-02-04] MEDS: ACETAMINOPHEN 325 MG TAB PO PRN ×3 (09:03→20:42)
[2019-02-04] MEDS: PANTOPRAZOLE SODIUM 40 MG TAB PO SCH ×2 (09:03→17:33)
[2019-02-04] MEDS: ENOXAPARIN 40 MG/0.4 ML SYR SC SCH (09:04)
[2019-02-04] MEDS: ONDANSETRON DISINTEGRATING 4 MG TAB PO PRN (11:33)
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
--- NOTE | 2019-02-04 14:59 | HOSPPROG ---
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 Old records reviewed and summarized as above. Care plan reviewed with CM/nursing. Subjective: no significant overnight events, patient notes she is still having diarrhea and unable to eat very much but improving, she feels weak Objective: Vital Signs Temp Pulse Resp BP Pulse Ox 37.1 C 88 16 102/68 96 02/04/19 11:15 02/04/19 11:15 02/04/19 11:15 02/04/19 11:15 02/04/19 11:15 Microbiology 02/03/19 17:00 Respiratory Panel (PCR) - Final Nasal, Sinus - Anaerobic Tube/Swab Coronavirus Hku1 Detected Laboratory Results 02/04/19 10:30 02/03/19 02/04/19 02/05/19 05:59 05:59 05:59 Intake Total 836 Output Total 200 1000 Balance 636 -1000 chronically ill appearing anicteric op clear, poor dentition rrr no mrg cta b soft nt nd no cce, missing 2 fingers on left hand changes c/w scleroderma appropriate cn intact ICD10 Worksheet Patient Problems: Problems Problem Status Onset Pneumonia Acute Scleroderma Acute Sepsis Acute Sinus tachycardia Acute Suicidal ideations Acute Constipation Acute Osteomyelitis of finger of left hand Acute Finger infection Acute Enterocolitis Acute Chest pain Acute
[2019-02-04] MEDS: FAMOTIDINE 20 MG TAB PO SCH (20:42)
[2019-02-04] MEDS: GABAPENTIN 300 MG CAP PO SCH (20:42)
[2019-02-04] MEDS ORDERED: RANITIDINE SYRUP 15 MG/1 ML UDSYR PO SCH (21:00)
[2019-02-05] MEDS: ACETAMINOPHEN 325 MG TAB PO PRN ×2 (04:39→12:41)
[2019-02-05] MEDS: NS 1,000 ML IV SCH ×3 (06:21→23:33)
[2019-02-05] MEDS: PANTOPRAZOLE SODIUM 40 MG TAB PO SCH ×2 (08:54→16:30)
[2019-02-05] MEDS: CITALOPRAM 20 MG TAB PO SCH (08:54)
[2019-02-05] MEDS: ENOXAPARIN 40 MG/0.4 ML SYR SC SCH (08:54)
--- NOTE | 2019-02-05 16:13 | HOSPPROG ---
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) * Microcytic anemia -likely due to anemia of chronic disease, iron studies not c/w iron deficiency -very mild anemia * IP status--likely able to dc 02/06 to homeless detention if diarrhea remains minimal or resolved Subjective: no significant overnight events, patient notes she feels weak still but much better than prior, diarrhea much less Objective: Vital Signs Temp Pulse Resp BP Pulse Ox 36.9 C 83 18 118/71 97 02/05/19 15:46 02/05/19 15:46 02/05/19 15:46 02/05/19 15:46 02/05/19 15:46 Laboratory Results 02/04/19 10:30 02/04/19 02/05/19 02/06/19 05:59 05:59 05:59 Intake Total 836 550 Output Total 200 1000 Balance 636 -450 chronically ill appearing anicteric op clear, poor dentition rrr no mrg cta b soft nt nd no cce, missing 2 fingers on left hand changes c/w scleroderma appropriate cn intact ICD10 Worksheet Patient Problems: Problems Problem Status Onset Enterocolitis Acute Chest pain Acute Constipation Acute Finger infection Acute Osteomyelitis of finger of left hand Acute Pneumonia Acute Scleroderma Acute Sepsis Acute Sinus tachycardia Acute Suicidal ideations Acute
[2019-02-05] MEDS: FAMOTIDINE 20 MG TAB PO SCH (21:35)
[2019-02-05] MEDS: GABAPENTIN 300 MG CAP PO SCH ×2 (21:35→21:36)
[2019-02-05] MEDS: traZODone 50 MG TAB PO PRN (21:39)
[2019-02-06] MEDS: ACETAMINOPHEN 325 MG TAB PO PRN (04:33)
[2019-02-06] MEDS: CITALOPRAM 20 MG TAB PO SCH (09:09)
[2019-02-06] MEDS: ENOXAPARIN 40 MG/0.4 ML SYR SC SCH (09:09)
[2019-02-06] MEDS: NS 1,000 ML IV SCH ×2 (09:09→17:12)
[2019-02-06] MEDS: PANTOPRAZOLE SODIUM 40 MG TAB PO SCH ×2 (09:09→17:11)
[2019-02-06] MEDS: ACETAMINOPHEN/ASA/CAFFEINE 1 EACH TAB PO PRN ×2 (09:11→18:36)
--- NOTE | 2019-02-06 09:21 | HOSPPROG ---
Hospitalist Progress Note Assessment/Plan: 53 yo F presenting with infectious diarrhea 2/2 EPEC. First encounter, chart reviewed. 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 Has a headache, stomach is upset. Objective: Vital Signs Temp Pulse Resp BP Pulse Ox 36.9 C 86 16 136/79 H 96 02/06/19 08:12 02/06/19 08:12 02/06/19 08:12 02/06/19 08:12 02/06/19 08:12 Laboratory Results 02/04/19 10:30 02/05/19 02/06/19 02/07/19 05:59 05:59 05:59 Intake Total 550 1950 Output Total 1000 Balance -450 1950 - Physical Exam Constitutional: not in pain, chronically ill appearing, other (thin) Eyes: PERRL Ears, Nose, Mouth, Throat: hearing normal Cardiovascular: regular rate and rhythym Respiratory: no respiratory distress Musculoskeletal: generalized weakness Neurologic: AAOx3 Psychiatric: interacting appropriately ICD10 Worksheet Patient Problems: Problems Problem Status Onset Enterocolitis Acute Chest pain Acute Constipation Acute Finger infection Acute Osteomyelitis of finger of left hand Acute Pneumonia Acute Scleroderma Acute Sepsis Acute Sinus tachycardia Acute Suicidal ideations Acute
--- NOTE | 2019-02-06 15:43 | ASMTCMCOM ---
CM Note CM Note Notes: Spoke with hospitalist and pt in the room. Pt and hospitalist are both wanting pt to avoid the [facility] if at all possible due to her scleroderma and RA if at all possible. CM encouraged pt to call safe houses which she had not called despite CM having given her the information two days ago. Pt did call three safe houses and was waiting to hear back from two of them. [facility] had no bed until Sunday. Per CM notes from 2018, pt was discharged to [place] with LTC Medicaid. [facility] confirmed it was feasible to evaluate patient again and find second LTC placement. [facility] declined to accept due to past financial issues with the patient. 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 Hospitalist agreed with plan and ULTC-100 was sent to [facility] today. Referrals for LTC sent to [facility]. Pt stated she would not go to [facility]. CM to follow. D/C plan: LTC facility pending [facility] evaluation within 48 hours. Date Signed: 02/06/2019 03:42 PM Electronically Signed By:Kely Ashton
[2019-02-06] MEDS: FLUTICASONE NASAL 120 SPRAYS/16 GM MDI EACHNARE SCH (18:35)
[2019-02-06] MEDS: GABAPENTIN 300 MG CAP PO SCH (21:53)
[2019-02-06] MEDS: traZODone 50 MG TAB PO PRN (21:53)
[2019-02-06] MEDS: FAMOTIDINE 20 MG TAB PO SCH (21:53)
[2019-02-06] MEDS ORDERED: diphenhydrAMINE 25 MG CAP PO PRN (23:27)
[2019-02-07] MEDS: NS 1,000 ML IV SCH (05:25)
[2019-02-07 08:07] VITALS: BP 110/84
[2019-02-07] MEDS: PANTOPRAZOLE SODIUM 40 MG TAB PO SCH (08:24)
[2019-02-07] MEDS: CITALOPRAM 20 MG TAB PO SCH (08:24)
[2019-02-07] MEDS: ENOXAPARIN 40 MG/0.4 ML SYR SC SCH (08:25)
[2019-02-07] MEDS: FLUTICASONE NASAL 120 SPRAYS/16 GM MDI EACHNARE SCH (08:25)
--- NOTE | 2019-02-07 11:04 | HOSPPROG ---
Hospitalist Progress Note Assessment/Plan: 53 yo F presenting with infectious diarrhea 2/2 EPEC. 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 Objective: Vital Signs Temp Pulse Resp BP Pulse Ox 36.8 C 96 16 110/84 H 99 02/07/19 08:04 02/07/19 08:04 02/07/19 08:04 02/07/19 08:04 02/07/19 08:04 Laboratory Results 02/04/19 10:30 02/06/19 02/07/19 02/08/19 05:59 05:59 05:59 Intake Total 1950 900 Balance 1950 900 - Physical Exam Constitutional: appears nourished, not in pain, chronically ill appearing Eyes: PERRL Ears, Nose, Mouth, Throat: hearing normal Respiratory: no respiratory distress Skin: warm Musculoskeletal: generalized weakness Neurologic: AAOx3 Psychiatric: interacting appropriately ICD10 Worksheet Patient Problems: Problems Problem Status Onset Enterocolitis Acute Chest pain Acute Constipation Acute Finger infection Acute Osteomyelitis of finger of left hand Acute Pneumonia Acute Scleroderma Acute Sepsis Acute Sinus tachycardia Acute Suicidal ideations Acute
--- NOTE | 2019-02-07 11:34 | GDS ---
[f rep st] DISCHARGE SUMMARY DISCHARGE DIAGNOSES: 1. Diarrhea. Secondary to enteropathic Escherichia coli enteritis. 2. Scleroderma. Rheumatoid arthritis. 3. Finger amputation due to frostbite. 4. Microcytic anemia. 5. Homelessness. HISTORY OF PRESENT ILLNESS: Briefly the patient is a 53-year-old woman who presented with infectious diarrhea secondary to enteropathic E coli enteritis. She was treated with IV hydration. This has s ryan resolved. She is eating and drinking well and has had no further bouts of diarrhea. HOSPITAL COURSE BY PROBLEM: 1. Diarrhea. Secondary to enteropathic E coli enteritis, resolved. 2. Scleroderma. Rheumatoid arthritis. She is currently not on any treatment. 3. Finger amputation. This is due to frostbite. 4. Microcytic anemia. Most likely secondary to anemia of chronic disease. 5. Homelessness. She is planning on staying with her sister. Case Management made attempts to try to get her in a fci facility, but she would prefer to go live with her sister. DISCHARGE CONDITION: Stable. Blood pressure is 110/84, heart rate of 96, respiratory rate is 16, O2 sats on room air 99%, temperature 36.8 Celsius. MEDICATIONS AT DISCHARGE: Please see the EMR. DISCHARGE INSTRUCTIONS: 1. To stay well hydrated. 2. Hoping she can find a permanent place to stay. /[id number]/MODL
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
== END 2019-02-07 14:24 | disposition home or self-care (01) | DRG 373 ==
LOC: EDUNIT# → F3E 21:15 → OBSVTOIN 02-03 14:47
PROVIDERS: ADMIT Internal Medicine; ATTEND Internal Medicine
DX: A04.4 Other intestinal Escherichia coli infections (principal); E86.0 Dehydration; M34.9 Systemic sclerosis, unspecified; M06.9 Rheumatoid arthritis, unspecified; D50.9 Iron deficiency anemia, unspecified; G89.29 Other chronic pain; J45.909 Unspecified asthma, uncomplicated; K21.9 Gastro-esophageal reflux disease without esophagitis; K22.70 Barrett's esophagus without dysplasia; Z59.0 Homelessness; Z23 Encounter for immunization; Z89.029 Acquired absence of unspecified finger(s)
CPT/HCPCS: 96374; 97110-GP; 97116-GP; 97161-GP; 97165-GO; 97535-GO; G0009; G0378; G0480; J1650; J2550; Q9967

== ENCOUNTER 2019-02-11 08:22 | Observation (INO) | payer OTHER, MEDICAID ==
--- NOTE | 2019-02-11 09:09 | EDPHY ---
General Time Seen by Provider: 02/11/19 08:47 Narrative: CLINICAL IMPRESSION: Nausea, vomiting, diarrhea ASSESSMENT/PLAN: Patient is a 53-year-old female with a recent admission for E coli enteritis discharged 4 days prior who presents to the emergency department with recurrent , sudden-onset nausea, vomiting, abdominal pain and uncontrolled diarrhea. Patient is afebrile, she is uncomfortable appearing however not toxic- appearing. Her abdomen was soft, diffuse tenderness to palpation with mild voluntary guarding. Her vital signs were reviewed, mildly tachycardic. Laboratory studies were obtained, no evidence of leukocytosis. Mildly hyperkalemic at 5.5, no evidence of acute kidney injury. Patient was given antiemetic with improvement of her nausea, 2 L of fluid. She continued to have multiple episodes of watery stool in the emergency department, stool studies sent and are pending. Patient has been unable to tolerate p.o.. On repeat exam and prior to transfer to the floor the patient reports her abdominal pain is improving, her abdomen was soft with very mild diffuse tenderness, no evidence of a surgical abdomen. She will be admitted for further observation, I spoke to Marleni Hilliard, she will be admitted to Dr. Hoffman under the hospitalist service. DIFFERENTIAL DX: Abdominal pain including but not limited to enteritis, appendicitis, cholecystitis, gastritis and urinary tract infection. ED COURSE: 0915: Case discussed with Dr. Marti 0925: CBC revealed no evidence of leukocytosis. Mildly hyperkalemic with a potassium of 5.5, sodium is normal. Creatinine is low, no evidence of MILA. 0940: Patient with uncontrolled episode of diarrhea, stooled herself. 0953: Abdominal x-ray reviewed with Dr. Marti, dilated loops of bowel without evidence of free air or obstruction. 1002: On repeat examination the patient reports that her nausea is better, she is still feeling chilled. She has had 3 episodes of diarrhea. 1009: In further discussion with the patient, she was discharge the [facility] with intent to have her aunt pick her up who is coming from [place]. Her aunt has been delayed secondary to the weather. She cannot stay with her mother , her younger sister is they are taking care of her. 1037: Case discussed with Marleni Hilliard nurse practitioner, will re-evaluate in 30 min. If patient is still having issues with diarrhea will admit. 1115: On reexamination the patient is still having episodes of watery diarrhea. Abdomen is soft, diffusely tender without evidence of a surgical abdomen. Abdominal pain has significantly improved. No indication for CT or further imaging at this time. Will admit for observation. CHIEF COMPLAINT: Nausea, vomiting, diarrhea HPI: Patient is a 53-year-old woman who presents to the emergency department with complaints of nausea, vomiting, diarrhea and abdominal pain. Patient has a history of Boles's esophagus, scleroderma and recent E coli enteritis requiring hospital admission. Patient was discharged this past Sunday after a 5 day hospital admission for E coli enteritis. Patient reports she was not feeling great upon discharge however her diarrhea had been alleviated for approximately a day. She reports this morning having a sudden onset of abdominal pain, nausea, emesis x2 and 3 episodes of large volume diarrhea similar to what brought her into the emergency department last week. She is unable to make it to the bathroom on several occasions, soiled herself. She is [facility] at the [facility], as she was discharged on Sunday has not followed up with [facility]. She reports when she was discharged from the hospital that she was feeling not great however her diarrhea had improved. She has been staying at the fpc for the last several days, woke up this morning with a sudden onset of nausea, vomiting, worsening abdominal pain and uncontrollable diarrhea. She reports 2 episodes of emesis, denies hematemesis. She denies any melena or hematochezia, reports that she is soiled herself as she is unable to make it to the bathroom when she has the urge. She denies any fevers however has felt chilled. She denies any chest pain or shortness of breath. She denies any urinary symptoms to include dysuria, hematuria or increased frequency. Patient reports recent diagnosis of upper respiratory virus, feeling better. Denies any significant runny nose, cough or congestion. PMH: [place] with 5 finger amputations, scleroderma, Boles's esophagus, GERD, depression, neuropathy, insomnia, emphysema, E coli enteritis, osteomyelitis Pertinent Past Surgical History: Cholecystectomy, tonsillectomy, adenoidectomy , right elbow surgery, multiple finger amputations Family History: Not contributory Social History: Homeless, current cigarette smoker. History of methamphetamine and marijuana use. REVIEW OF SYSTEMS: All other systems negative Constitutional: Chills, decreased appetite. No fever. Eyes: No discharge, vision change ENT: No sore throat, congestion, ear pain. Cardiovascular: No chest pain, no palpitations. Respiratory: No cough, no shortness of breath. Gastrointestinal: Abdominal pain, nausea, vomiting, diarrhea Genitourinary: No hematuria, dysuria, flank pain. Musculoskeletal: Multiple previous finger amputations. No back pain, joint swelling, joint pain, myalgias. Skin: No rashes, color change. Neurological: No headache, dizziness, weakness. PHYSICAL EXAM: General Appearance: Chronically ill-appearing and tired appearing however not toxic-appearing. HENT: Normocephalic, atraumatic. Bilateral external ears are normal. Bilateral tympanic membranes are normal with pearly holt reflex. Nares are clear, mucosa is pink. Oropharynx is clear however mucosa is dry, uvula is midline. There is no tonsillar enlargement or exudate. Poor dentition. Eyes: PERRLA, EOMI intact. Conjunctiva pink, no pallor or injection. Neck: Supple, nontender, no lymphadenopathy, no midline pain, FROM, no meningismus. Respiratory: There are no retractions, lungs are clear to auscultation. Cardiac: Mildly tachycardic, no murmurs or gallops. Gastrointestinal: Abdomen is soft, mildly distended. Patient has diffuse tenderness to palpation with mild voluntary guarding throughout. Bowel sounds are present. Neurological: Alert and oriented x 3, CN 2-12 grossly intact, normal sensation and strength Skin: Warm, dry, no rashes, no nodules on palpation. Musculoskeletal: Multiple finger amputations. Extremities are symmetrical, full range of motion, no tenderness, deformity, swelling, or erythema. Psychiatric: Mood and affect are normal, there is no agitation. MEDICAL DECISION MAKING: Patient was seen independently. Secondary supervising physician at time of evaluation was Dr. Marti. Diagnosis: Abdominal pain, Nausea, vomiting, diarrhea. Summary: In reviewing patient's recent admission, CT abdomen revealed findings suggestive of enteritis and colitis. Admission for 5 days. No indications for antibiotic therapy, avoided Imodium during her admission. Stool studies reviewed and revealed E coli, She had supportive care with IV fluid resuscitation. Patient also found to have viral upper respiratory infection, gonzalez virus. Discharged 02/07/19, offered long-term care at [facility] however patient declined as she has family in the area. Clinical lab tests: ordered / reviewed. Independent visualization of images, tracing, or specimens: Yes. Decision to obtain medical records or history from someone other than the patient: No Review / Summarize previous medical records: Yes Discussed patient with another provider: Yes, Dr. Marti Patient Progress: Stable, admit. - Diagnostics Imaging Results: Imaging Impressions Abdomen X-Ray 02/11/19 09:11 Impression: 1. Mildly distended large bowel loops within the abdomen with degree of distention improved since the prior study. - History Smoking Status: Current every day smoker - Objective Vital Signs: Initial Vital Signs Temperature (C) 36.6 C 02/11/19 08:26 Respiratory Rate 18 02/11/19 08:26 Blood Pressure 107/84 H 02/11/19 08:26 O2 Delivery Mode Room Air Allergies/Adverse Reactions: No Known Allergies Allergy (Verified 02/11/19 08:30) Home Medications: Medication Instructions Recorded Albuterol [Proventil Inhaler HFA 1 - 2 puffs IH Q4H PRN 01/02/16 (*)] Gabapentin [Neurontin 300 MG (*)] 300 mg PO HS 05/01/18 Omeprazole 40 mg PO BIDAC 05/01/18 Citalopram [CeleXA 20 MG] 40 mg PO DAILY 10/12/18 traZODone [traZODONE 50MG (*)] 50 mg PO HS PRN 10/13/18 Acetaminophen/ASA/Caffeine 1 each PO DAILY PRN 02/03/19 [Excedrin Tablet (*)] Ranitidine HCl [Zantac] 150 mg PO HS 02/03/19 Laboratory Results: Laboratory Results 02/11/19 09:30 02/11/19 09:30 02/11/19 02/11/19 02/11/19 10:10 09:30 09:30 WBC 7.35 10^3/uL 10^3/uL (3.80-9.50) RBC 5.18 10^6/uL 10^6/uL (4.18-5.33) Hgb 12.4 g/dL L g/dL (12.6-16.3) Hct 39.7 % % (38.0-47.0) MCV 76.6 fL L fL (81.5-99.8) MCH 23.9 pg L pg (27.9-34.1) MCHC 31.2 g/dL L g/dL (32.4-36.7) RDW 17.7 % H % (11.5-15.2) Plt Count 421 10^3/uL H 10^3/uL (150-400) MPV 8.7 fL fL (8.7-11.7) Neut % (Auto) 63.3 % % (39.3-74.2) Lymph % (Auto) 25.7 % % (15.0-45.0) [place] % (Auto) 7.2 % % (4.5-13.0) Eos % (Auto) 1.8 % % (0.6-7.6) Baso % (Auto) 1.2 % % (0.3-1.7) Nucleat RBC Rel Count 0.0 % % (0.0-0.2) Absolute Neuts (auto) 4.65 10^3/uL 10^3/uL (1.70-6.50) Absolute Lymphs (auto) 1.89 10^3/uL 10^3/uL (1.00-3.00) Absolute Monos (auto) 0.53 10^3/uL 10^3/uL (0.30-0.80) Absolute Eos (auto) 0.13 10^3/uL 10^3/uL (0.03-0.40) Absolute Basos (auto) 0.09 10^3/uL 10^3/uL (0.02-0.10) Absolute Nucleated RBC 0.00 10^3/uL 10^3/uL (0-0.01) Immature Gran % 0.8 % % (0.0-1.1) Immature Gran # 0.06 10^3/uL 10^3/uL (0.00-0.10) Sodium 142 mEq/L mEq/L (135-145) Potassium 5.5 mEq/L H mEq/L (3.5-5.2) Chloride 101 mEq/L mEq/L (97-110) Carbon Dioxide 14 mEq/l L mEq/l (22-31) Anion Gap 27 mEq/L H mEq/L (6-14) BUN 14 mg/dL mg/dL (7-23) Creatinine 0.5 mg/dL L mg/dL (0.6-1.0) Estimated GFR > 60 Glucose 77 mg/dL mg/dL (70-100) Calcium 7.4 mg/dL L mg/dL (8.5-10.4) Total Bilirubin 0.6 mg/dL mg/dL (0.1-1.4) Conjugated Bilirubin 0.2 mg/dL mg/dL (0.0-0.5) Unconjugated Bilirubin 0.4 mg/dL mg/dL (0.0-1.1) AST 34 IU/L IU/L (14-46) ALT 34 IU/L IU/L (9-52) Alkaline Phosphatase 116 IU/L IU/L (38-126) Total Protein 7.5 g/dL g/dL (6.3-8.2) Albumin 4.7 g/dL g/dL (3.5-5.0) Lipase 65 IU/L IU/L (23-300) Stool Concentration Pending Stool Occult Bld Scrn NEGATIVE (NEGATIVE) Stool Ova & Parasites LIQUID BROWN STOOL Parasite Trichrome Pending C. difficile Tox (PCR) NEGATIVE (NEGATIVE) Direct Microscop Exam TNP Medications Given: Sodium Chloride (Ns) 1,000 mls @ 125 mls/hr IV CONT JAMEY Stop: 08/10/19 12:14 Last Admin: 02/11/19 12:30 Dose: 1,000 mls Discontinued Medications Sodium Chloride (Ns) 1,000 mls @ 0 mls/hr IV EDNOW ONE; Wide Open PRN Reason: Protocol Stop: 02/11/19 09:11 Last Admin: 02/11/19 09:46 Dose: 1,000 mls Sodium Chloride (Ns) 1,000 mls @ 0 mls/hr IV EDNOW ONE; Wide Open PRN Reason: Protocol Stop: 02/11/19 10:19 Last Admin: 02/11/19 10:39 Dose: 1,000 mls Ondansetron HCl (Zofran) 4 mg IVP EDNOW ONE Stop: 02/11/19 09:11 Last Admin: 02/11/19 09:46 Dose: 4 mg Departure - Departure Disposition: [facility] Acute Clinical Impression: Enteritis Condition: Fair
[2019-02-11] MEDS ORDERED: ONDANSETRON 4 MG/2 ML VIAL IVP ONE (09:10)
[2019-02-11] MEDS ORDERED: NS 1,000 ML IV ONE ×2 (09:10→10:18)
[2019-02-11 09:42] LABS: PLATELET COUNT 421 10^3/uL (150-400)
[2019-02-11] MEDS ORDERED: ONDANSETRON DISINTEGRATING 4 MG TAB PO PRN ×2 (12:05→13:07)
[2019-02-11] MEDS: NS 1,000 ML IV SCH ×2 (12:30→20:57)
[2019-02-11] MEDS ORDERED: ACETAMINOPHEN 325 MG TAB PO PRN (13:07)
[2019-02-11] MEDS ORDERED: ONDANSETRON 4 MG/2 ML VIAL IVP PRN (13:07)
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
[2019-02-11] MEDS ORDERED: ALBUTEROL 60 PUFFS/8 GM MDI IH PRN (14:37)
[2019-02-11] MEDS ORDERED: traZODone 50 MG TAB PO PRN (14:37)
[2019-02-11] MEDS ORDERED: ACETAMINOPHEN/ASA/CAFFEINE 1 EACH TAB PO PRN (14:37)
[2019-02-11] MEDS: FLUTICASONE NASAL 120 SPRAYS/16 GM MDI EACHNARE SCH (16:14)
[2019-02-11] MEDS: GABAPENTIN 300 MG CAP PO SCH (20:57)
[2019-02-11] MEDS: FAMOTIDINE 20 MG TAB PO SCH (20:57)
[2019-02-11] MEDS: traMADol 50 MG TAB PO PRN (22:21)
[2019-02-12] MEDS: NS 1,000 ML IV SCH (04:20)
[2019-02-12] MEDS: CITALOPRAM 20 MG TAB PO SCH (09:58)
[2019-02-12] MEDS: FLUTICASONE NASAL 120 SPRAYS/16 GM MDI EACHNARE SCH (09:59)
[2019-02-12] MEDS: traMADol 50 MG TAB PO PRN ×2 (10:21→18:44)
--- NOTE | 2019-02-12 12:50 | HOSPPROG ---
Hospitalist Progress Note Assessment/Plan: 53 year old homeless female admitted with NV and diarrhea after recent admission for the same. NV diarrhea- seems to be improved at this point. No emesis or diarrhea since late last night. Normal white count. pathogen panel negative for c diff. Plan to advance diet today and if tolerating PO discharge microcytic anemia- stable, no evidence of bleed Hyperkalemia- resolved with fluids and recheck Acidosis- resolved scleroderma- multiple finger amputations. takes nothing for this, RA- no current flare. not on treatment. Headache- resolved. Homelessness- suspect patient will cont to present to the ER unless she can be more permanently placed. Was supposed to go to [place] but thena apparently her ride fell through, and she came t the ER with NV diarrhea. PPX- SCDs, Heparin Fluids- PO Lytes- WNL Nutrition- regular now Dispo- possibly later today if tolerating po. Subjective: feels better. wants regular food. Objective: Vital Signs Temp Pulse Resp BP Pulse Ox 36.4 C 78 16 111/63 93 02/12/19 11:35 02/12/19 11:35 02/12/19 11:35 02/12/19 11:35 02/12/19 11:35 Laboratory Results 02/12/19 04:22 02/11/19 02/12/19 02/13/19 05:59 05:59 05:59 Intake Total 5700 450 Balance 5700 450 - Physical Exam Constitutional: no apparent distress, appears nourished, not in pain Eyes: PERRL, anicteric sclera, EOMI Ears, Nose, Mouth, Throat: moist mucous membranes, hearing normal, ears appear normal, no oral mucosal ulcers Cardiovascular: regular rate and rhythym, no murmur, rub, or gallop Respiratory: no respiratory distress, no rales or rhonchi, clear to auscultation Gastrointestinal: normoactive bowel sounds, soft, non-tender abdomen, no palpable masses Genitourinary: no bladder fullness, no bladder tenderness, no renal bruits Skin: no rashes or abrasions, no fluctuance, no induration Musculoskeletal: full muscle strength, no muscle tenderness, normal joint ROM, other Neurologic: AAOx3, sensation intact bilaterally Psychiatric: interacting appropriately, not anxious, not encephalopathic, thought process linear Lymph, Heme, Immunologic: no cervical LAD, no supraclavicular LAD ICD10 Worksheet Patient Problems: Problems Problem Status Onset Enteritis Acute Chest pain Acute Constipation Acute Enterocolitis Acute Finger infection Acute Osteomyelitis of finger of left hand Acute Pneumonia Acute Scleroderma Acute Sepsis Acute Sinus tachycardia Acute Suicidal ideations Acute
[2019-02-12] MEDS: SIMETHICONE 80 MG TAB CHEW PO SCH ×3 (13:21→20:28)
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
[2019-02-12] MEDS: GABAPENTIN 300 MG CAP PO SCH (20:28)
[2019-02-12] MEDS: FAMOTIDINE 20 MG TAB PO SCH (20:28)
[2019-02-13] MEDS: traMADol 50 MG TAB PO PRN ×2 (02:21→08:59)
[2019-02-13 07:17] VITALS: BP 119/84
[2019-02-13] MEDS: CITALOPRAM 20 MG TAB PO SCH (08:59)
[2019-02-13] MEDS: SIMETHICONE 80 MG TAB CHEW PO SCH ×2 (08:59→14:27)
[2019-02-13] MEDS: FLUTICASONE NASAL 120 SPRAYS/16 GM MDI EACHNARE SCH (09:00)
--- NOTE | 2019-02-13 12:10 | HOSPPROG ---
Hospitalist Progress Note Assessment/Plan: 53 year old homeless female admitted with n/v and diarrhea after recent admission for the same secondary to E coli enteritis. #N/V/D, recent E coli enteritis: improving - continue supportive care prn #Microcytic anemia: recent iron studies c/w iron deficiency - start iron supplementation, needs outpt c-scope #Rhinorrhea, headache - flonase #Hyperchloremic metabolic acidosis - stopped IV fluids #Scleroderma/RA: not on therapy. s/p multiple remote finger amputations #Homelessness: CM working on finding resources VTE ppx: SCDs, ambulate Code: full Dispo: possibly dc later today vs tomorrow (cm working on ltac) Subjective: Now longer having n/v or diarrhea. Possibly a bit constipated. Sinuses have been bothering her. Objective: Vital Signs Temp Pulse Resp BP Pulse Ox 36.7 C 88 18 119/84 H 97 02/13/19 07:16 02/13/19 07:16 02/13/19 07:16 02/13/19 07:16 02/13/19 07:16 Laboratory Results 02/12/19 04:22 02/12/19 02/13/19 02/14/19 05:59 05:59 05:59 Intake Total 5700 950 Balance 5700 950 - Physical Exam Constitutional: no apparent distress, chronically ill appearing Eyes: PERRL, anicteric sclera, EOMI Ears, Nose, Mouth, Throat: moist mucous membranes, hearing normal, ears appear normal, no oral mucosal ulcers Cardiovascular: regular rate and rhythym, no murmur, rub, or gallop, No edema Respiratory: no respiratory distress, no rales or rhonchi, clear to auscultation Gastrointestinal: normoactive bowel sounds, soft, non-tender abdomen, no palpable masses Genitourinary: no bladder fullness, no bladder tenderness, no renal bruits Skin: no rashes or abrasions, no fluctuance, no induration Musculoskeletal: other (several finger amputations) Neurologic: AAOx3 Psychiatric: interacting appropriately ICD10 Worksheet Patient Problems: Problems Problem Status Onset Enteritis Acute Chest pain Acute Constipation Acute Enterocolitis Acute Finger infection Acute Osteomyelitis of finger of left hand Acute Pneumonia Acute Scleroderma Acute Sepsis Acute Sinus tachycardia Acute Suicidal ideations Acute
--- NOTE | 2019-02-13 14:00 | PDDCSUM ---
Discharge Summary Discharge Summary: Date of Admission: 02/11/2019 Date of Discharge: 02/13/2019 Studies: abdominal x-ray Discharge Diagnoses: 1. Nausea, vomiting, and diarrhea 2. Recent E coli gastroenteritis 3. Iron deficiency anemia 4. Metabolic acidosis secondary to emesis, improved 5. Scleroderma/rheumatoid arthritis, not on treatment 6. Homelessness Brief Hospital Course: 53 year old homeless female admitted with n/v and diarrhea. She was just hospitalized for the same and was diagnosed with E coli enteritis. It is felt that this was likely the culprit of her symptoms. She had a benign abdomen and was not septic. She was treated conservatively and gradually improved. C diff testing and stool O&P were negative. She was without pain and tolerating PO at time of discharge. Given her poor social situation and lack of housing, referrals were made for fruit room hand care placement; however, upon evaluation she did not qualify for LTC. Instead, she was given housing resources and discharged to a homeless retirement. She was noted again to be mildly anemic. Iron studies done last admission appear consistent with iron deficiency. She was started on iron supplementation and I discussed with her the need for outpatient GI evaluation/colonoscopy. Medications: Please refer to EMR for complete list. Changes this admission include addition of iron sulfate 325mg daily and I refilled her prilosec. Otherwise, no changes. Follow Up Plan: 1. [facility] with Ciarra Tee
--- NOTE | 2019-02-13 15:19 | ASMTDCNOTE ---
Case Management Discharge Discharge Order Complete? Answers: Yes Patient to Obtain Answers: Independently Medications Transportation Arranged Answers: Other Notes: [facility] Discharge Comments Notes: Jackelyn with [facility] met with pt today and she does not meet the level of care for LTC. Cm met with pt and she is aware she needs to go back to care home and coordinate housing services with the outpt providers there. CM updated [facility] and left a message for Mercedes who will follow-up with pt in the community. CM scheduled pt a follow-up leonard at [facility] for 01/19 at 4:00pm with Ciarra Tee. CM provided pt with clothing for dc. Spoke with Adolfo at [facility] to provide information on placement of TB test, RN, Janet to read TB test here so pt can return to care home. Renetta is agreeable with discharge plan and appreciates the help here. She says she will continue to work with her community supports. No other CM needs identified at this time, pt is being discharged independently. Date Signed: 02/13/2019 03:18 PM Electronically Signed By:ALONZO Mendez
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
[2019-02-14] MEDS ORDERED: FERROUS SULFATE 325 MG TAB PO SCH (09:00)
== END 2019-02-13 16:34 | disposition home or self-care (01) ==
LOC: F1N 12:12
PROVIDERS: ADMIT Internal Medicine; ATTEND Internal Medicine
DX: R11.2 Nausea with vomiting, unspecified (principal); R19.7 Diarrhea, unspecified; D50.9 Iron deficiency anemia, unspecified; E87.2 Acidosis; E86.0 Dehydration; R51 Headache; M34.9 Systemic sclerosis, unspecified; M06.9 Rheumatoid arthritis, unspecified; F17.210 Nicotine dependence, cigarettes, uncomplicated; Z59.0 Homelessness
CPT/HCPCS: 74018; 96361; 96374; 99285; G0378; J2405

== ENCOUNTER 2019-02-17 16:00 | Emergency (ER) | payer OTHER, MEDICAID ==
[2019-02-17] MEDS ORDERED: PROMETHAZINE HCL 25 MG/ML INJ IVP ONE (16:41)
[2019-02-17] MEDS ORDERED: NS 1,000 ML IV ONE (16:41)
[2019-02-17] MEDS ORDERED: FAMOTIDINE 20 MG/NACL 50 ML IV ONE (16:41)
[2019-02-17] MEDS ORDERED: ONDANSETRON 4 MG/2 ML VIAL IVP ONE (16:41)
--- NOTE | 2019-02-17 17:08 | EDPHY ---
H & P Time Seen by Provider: 02/17/19 16:38 HPI/ROS: HPI Vomiting, abdominal pain, lightheaded. 53-year-old female on foot. She presents the emergency department complaining of 2-3 hours of nausea and vomiting. She describes several episodes of nonbilious nonbloody vomiting with associated periumbilical and right lower quadrant abdominal pain described as aching and cramping. She also has had associated lightheadedness. She denies prior abdominal surgical history. She is currently homeless. She states her last meal was last night. Please see review of systems for further details. ROS: Constitutional: No fever, no chills. No weakness. Eyes: No discharge. No changes in vision. ENT: No sore throat. No nasal congestion or rhinorrhea. Respiratory: No cough. No shortness of breath. Cardiac: No chest pain, no palpitations. Gastrointestinal: As above, no diarrhea. Genitourinary: No hematuria. No dysuria or increased frequency with urination. Musculoskeletal: No back pain. No neck pain. No myalgias or arthralgias. Skin: No rashes. Neurological: No headache. No focal weakness or altered sensation. Past medical history: Asthma, scleroderma, GERD, esophageal cancer, cholecystectomy, rheumatoid arthritis, hepatitis-C, frostbite, numerous finger amputations. Social history: Homeless. She denies alcohol. Heavy smoker. History of meth use. Physical Exam: General Appearance: Alert, she does not appear to be in distress. Dirty and disheveled. This patient is responding to questions appropriately and in full sentences. This patient appears well-hydrated and well-nourished. Eyes: Pupils equal and round no pallor or injection. No lid edema, erythema or injection. Respiratory: There are no retractions, lungs are clear to auscultation with good air movement bilaterally. Cardiovascular: Regular rate and rhythm. No murmur. Gastrointestinal: Abdomen is with mild and vague periumbilical and right lower quadrant abdominal pain., no masses, bowel sounds normal. No focal tenderness at McBurney's point. No Yanes sign. Neurological: Motor sensory function is grossly intact. Cranial nerves are normal. Cerebellar function is normal. Skin: Warm and dry, no rashes. Musculoskeletal: No CVA tenderness on palpation bilaterally. Extremities are symmetrical. All joints range without pain or impingement. Psychiatric: No agitation. No depression. Database: EKG: EKG time is 5:11 p.m.; EKG shows a narrow complex normal sinus rhythm with a ventricular rate of 82. Probable left atrial enlargement The [place], QRS, QT intervals are within normal limits. There are no ST-T wave changes indicative of ischemic or injury pattern. No evidence of right heart strain. Interpreted by me. Imaging: CT abdomen and pelvis with IV contrast: No significant pathology. No brody appendiceal area inflammatory changes. No evidence of ileus or obstruction. No other acute pathology. Results were discussed with staff radiologist Dr. Heladio Bernard. Procedures: Emergency department course: Triage vital signs reviewed and are normal. The patient is afebrile. IV was placed. She was initially given 20 mg of IV Pepcid, 6.25 mg of IV Phenergan, 4 mg of IV Zofran. She was started on IV normal saline with 1 L to be given over the next hour. CT abdomen and pelvis with IV contrast to be obtained after verification of a normal creatinine. 6:20 p.m., the patient was re-evaluated, sleeping but easily arousable. She has been tolerating oral fluids. I discussed results of her emergency department diagnostic testing. Her vital signs were reviewed and have remained normal. Repeat abdominal exam she is soft, nontender nondistended. She feels comfortable being discharged at this time and I feel she is safe for discharge. Follow-up and return to emergency department precautions reviewed with her. All of her questions were answered. She was discharged from the emergency department in good condition. Differential Diagnosis: The differential diagnosis on this patient includes but is not limited to food borne illness, gastritis, ileitis. Appendicitis, volvulus, ovarian torsion, bowel obstruction, intussusception, cholecystitis unlikely. This represents a partial list of diagnoses considered. These considerations are based on history , physical exam, past history, reassessment and diagnostic testing. Smoking Status: Current every day smoker Constitutional: Initial Vital Signs Temperature (C) 36.9 C 02/17/19 16:03 Heart Rate 89 02/17/19 16:03 Respiratory Rate 18 02/17/19 16:03 Blood Pressure 120/73 02/17/19 16:03 O2 Sat (%) 94 02/17/19 16:03 O2 Delivery Mode Room Air Allergies/Adverse Reactions: No Known Allergies Allergy (Verified 02/17/19 16:05) Home Medications: Medication Instructions Recorded Albuterol [Proventil Inhaler HFA 1 - 2 puffs IH Q4H PRN 01/02/16 (*)] Gabapentin [Neurontin 300 MG (*)] 300 mg PO HS 05/01/18 Citalopram [CeleXA 20 MG] 40 mg PO DAILY 10/12/18 traZODone [traZODONE 50MG (*)] 50 mg PO HS PRN 10/13/18 Acetaminophen/ASA/Caffeine 1 each PO DAILY PRN 02/03/19 [Excedrin Tablet (*)] Ranitidine HCl [Zantac] 150 mg PO HS 02/03/19 Ferrous Sulfate [Ferrous Sulf 325 325 mg PO DAILY #30 tab 02/13/19 MG (*)] Omeprazole 40 mg PO BIDAC #60 capsule. 02/13/19 Medical Decision Making - Diagnostics Imaging Results: Imaging Impressions Abdomen CT 02/17/19 17:05 Impression: 1. Mild constipation. 2. Small hiatal hernia. 3. Appendix not identified. No secondary evidence of appendicitis. 4. Atherosclerotic aorta without aneurysm. 5. No evidence of bowel obstruction, pneumoperitoneum, drainable abscesses, or diverticulitis. 6. Degenerative lumbar spine as described above. Findings and recommendations discussed with Emergency Department physician, Lenin Marti MD at 18:01 hour, 02/17/2019. Final report concurs with initial preliminary interpretation. - Data Points Laboratory Results: Laboratory Results 02/17/19 17:20 02/17/19 16:30 02/17/19 02/17/19 02/17/19 17:20 16:30 16:20 WBC 7.69 10^3/uL 10^3/uL (3.80-9.50) RBC 4.60 10^6/uL 10^6/uL (4.18-5.33) Hgb 11.2 g/dL L g/dL (12.6-16.3) Hct 36.0 % L % (38.0-47.0) MCV 78.3 fL L fL (81.5-99.8) MCH 24.3 pg L pg (27.9-34.1) MCHC 31.1 g/dL L g/dL (32.4-36.7) RDW 18.4 % H % (11.5-15.2) Plt Count 405 10^3/uL H 10^3/uL (150-400) MPV 8.5 fL L fL (8.7-11.7) Neut % (Auto) 75.4 % H % (39.3-74.2) Lymph % (Auto) 15.6 % % (15.0-45.0) Dewey % (Auto) 5.5 % % (4.5-13.0) Eos % (Auto) 2.1 % % (0.6-7.6) Baso % (Auto) 0.7 % % (0.3-1.7) Nucleat RBC Rel Count 0.0 % % (0.0-0.2) Absolute Neuts (auto) 5.81 10^3/uL 10^3/uL (1.70-6.50) Absolute Lymphs (auto) 1.20 10^3/uL 10^3/uL (1.00-3.00) Absolute Monos (auto) 0.42 10^3/uL 10^3/uL (0.30-0.80) Absolute Eos (auto) 0.16 10^3/uL 10^3/uL (0.03-0.40) Absolute Basos (auto) 0.05 10^3/uL 10^3/uL (0.02-0.10) Absolute Nucleated RBC 0.00 10^3/uL 10^3/uL (0-0.01) Immature Gran % 0.7 % % (0.0-1.1) Immature Gran # 0.05 10^3/uL 10^3/uL (0.00-0.10) Sodium 140 mEq/L mEq/L (135-145) Potassium 4.0 mEq/L mEq/L (3.5-5.2) Chloride 106 mEq/L mEq/L (97-110) Carbon Dioxide 22 mEq/l mEq/l (22-31) Anion Gap 12 mEq/L mEq/L (6-14) BUN 14 mg/dL mg/dL (7-23) Creatinine 0.4 mg/dL L mg/dL (0.6-1.0) Estimated GFR > 60 Glucose 85 mg/dL mg/dL (70-100) Calcium 9.2 mg/dL mg/dL (8.5-10.4) Total Bilirubin 0.2 mg/dL mg/dL (0.1-1.4) Conjugated Bilirubin 0.1 mg/dL mg/dL (0.0-0.5) Unconjugated Bilirubin 0.1 mg/dL mg/dL (0.0-1.1) AST 26 IU/L IU/L (14-46) ALT 28 IU/L IU/L (9-52) Alkaline Phosphatase 111 IU/L IU/L (38-126) Total Protein 6.8 g/dL g/dL (6.3-8.2) Albumin 4.1 g/dL g/dL (3.5-5.0) Lipase 113 IU/L IU/L (23-300) Urine Color YELLOW Urine Appearance HAZY Urine pH 5.0 (5.0-7.5) Ur Specific Theresa 1.014 (1.002-1.030) Urine Protein NEGATIVE (NEGATIVE) Urine Ketones NEGATIVE (NEGATIVE) Urine Blood NEGATIVE (NEGATIVE) Urine Nitrate NEGATIVE (NEGATIVE) Urine Bilirubin NEGATIVE (NEGATIVE) Urine Urobilinogen NEGATIVE EU EU (0.2-1.0) Ur Leukocyte Esterase NEGATIVE (NEGATIVE) Urine RBC 1-3 /hpf /hpf (0-3) Urine WBC 1-3 /hpf /hpf (0-3) Ur Epithelial Cells TRACE /lpf /lpf (NONE-1+) Urine Glucose NEGATIVE (NEGATIVE) Medications Given: Discontinued Medications Sodium Chloride (Ns) 1,000 mls @ 0 mls/hr IV EDNOW ONE; Wide Open PRN Reason: Protocol Stop: 02/17/19 16:42 Last Admin: 02/17/19 16:50 Dose: 1,000 mls Famotidine/Sodium Chloride (Pepcid 20 Mg (Premix)) 50 mls @ 200 mls/hr IV EDNOW ONE Stop: 02/17/19 16:55 Last Admin: 02/17/19 17:20 Dose: 50 mls Ondansetron HCl (Zofran) 4 mg IVP EDNOW ONE Stop: 02/17/19 16:42 Last Admin: 02/17/19 17:20 Dose: 4 mg Promethazine HCl (Phenergan) 6.25 mg IVP EDNOW ONE Stop: 02/17/19 16:42 Last Admin: 02/17/19 17:21 Dose: 6.25 mg Departure - Departure Disposition: Home, Routine, Self-Care Clinical Impression: Nausea and vomiting, Lightheaded, Abdominal pain Condition: Good Instructions: Acute Nausea and Vomiting (ED) Additional Instructions: Read and follow provided instructions. Follow-up with your primary care physician at [facility] in 1-2 days for re -evaluation. Keep yourself well hydrated. Return to the emergency department for worsening symptoms, worsening abdominal pain, vomiting and inability to keep fluids down despite medications, fainting, fever or other serious concerns. Referrals: [facility],. [Primary Care Provider] - As per Instructions
[2019-02-17] MEDS ORDERED: IOPAMIDOL (ISOVUE-300) 100 ML BTL ONE (17:09)
[2019-02-17 17:40] LABS: PLATELET COUNT 405 10^3/uL (150-400)
[2019-02-17 18:50] VITALS: BP 93/67
--- NOTE | 2019-02-17 22:23 | CPEKG ---
Test Reason : OPEN Blood Pressure : / mmHG Vent. Rate : 082 BPM Atrial Rate : 082 BPM P-R Int : 154 ms QRS Dur : 080 ms QT Int : 412 ms P-R-T Axes : 072 069 063 degrees QTc Int : 482 ms Sinus rhythm LAE, consider biatrial enlargement Confirmed by Lenin Marti ([id number] on 02/17/2019 10:23:02 PM Referred By: Lenin Marti Confirmed By:Lenin Marti
== END 2019-02-17 18:49 | disposition home or self-care (01) ==
DX: R11.2 Nausea with vomiting, unspecified (principal); R42 Dizziness and giddiness; K59.00 Constipation, unspecified; E86.9 Volume depletion, unspecified; K44.9 Diaphragmatic hernia without obstruction or gangrene; I70.0 Atherosclerosis of aorta; M47.816 Spondylosis without myelopathy or radiculopathy, lumbar region; Z59.0 Homelessness
CPT/HCPCS: 74177; 93005; 96374; 96375; 99285; J2405; J2550; Q9967

== ENCOUNTER 2019-03-20 12:12 | Emergency (ER) | payer OTHER, MEDICAID | END 2019-03-20 15:28 | disposition home or self-care (01) ==